=== PATIENT | male | born 1975 | race Caucasian/White ===

== ENCOUNTER 2019-03-27 12:49 | Inpatient (IN) ==
[2019-03-27] MEDS ORDERED: HYDROmorphone INJ 0.5 MG/0.5 ML SYR IV STA ×2 (13:36→15:39)
[2019-03-27] MEDS ORDERED: ONDANSETRON INJ 2 MG/ML 2 ML VIAL IV STA (13:36)
[2019-03-27] MEDS ORDERED: SODIUM CHLORIDE 0.9% 1000ML 1,000 ML IV ONE (13:36)
[2019-03-27 13:48] LABS: Basophils # (auto) 0.03 K/uL (0-0.2); Basophils % (auto) 0.3 %; Eosinophils # (auto) 0.32 K/uL (0-0.5); Eosinophils % (auto) 3.3 %; Hematocrit (blood only) 41.9 % (42-52); Hemoglobin 14.4 g/dL (14.0-18.0); Immature Granulocytes # (auto) 0.02 K/uL (0.00-0.02); Immature Granulocytes % (auto) 0.2 %; Lymphocytes # (auto) 2.03 K/uL (1.2-3.4); Lymphocytes % (auto) 20.9 %; Mean Corpuscular Hemoglobin 29.8 pg (25-34); Mean Corpuscular Hgb Conc 34.4 g/dL (32-36); Mean Corpuscular Volume 86.6 fL (80-100); Mean Platelet Volume 11.2 fL (7.4-10.4); Monocytes # (auto) 0.64 K/uL (0.11-0.59); Monocytes % (auto) 6.6 %; Neutrophils # (auto) 6.65 K/uL (1.4-6.5); Neutrophils % (auto) 68.7 %; Platelet Count 256 K/uL (130-400); RDW Coefficient of Variation 13.7 % (11.5-14.5); RDW Standard Deviation 43.7 fL (36.4-46.3); Red Blood Count 4.84 M/uL (4.7-6.1); White Blood Count 9.69 K/uL (4.8-10.8)
--- NOTE | 2019-03-27 13:59 | XRay Report ---
XR chest 1V portable CLINICAL HISTORY: 43 years-old Male presenting with razor blades swallowed. TECHNIQUE: Portable upright AP view of the chest was obtained. COMPARISON: None. FINDINGS: Cardiomediastinal silhouette normal. No focal opacity. No large effusion or pneumothorax. Osseous str uctures normal. Upper abdomen normal. IMPRESSION: 1. No acute cardiopulmonary disease. No radiopaque foreign body. ACT 112: Negative or not required by law. Electronically signed by: Keegan Martinez M.D. 03/27/2019 1:58 PM
--- NOTE | 2019-03-27 14:02 | XRay Report ---
XR KUB/Abdomen 1 view CLINICAL HISTORY: 43 years-old Male presenting with swallowed 5 razor blades. TECHNIQUE: Single supine view of the abdomen was obtained. COMPARISON: None. FINDINGS: Nonobstructive bowel gas pattern. No gross pneumoperitoneum. At least 3 linear radiopaque foreign bod ies are evident in the epigastrium likely within the gastric body/antrum. A suture margin may be pres ent in the region of the gastric body/fundus.. Allowing for bowel gas and stool, no calcifications to suggest nephrolithiasis. Osseous structures normal. Lung bases clear. IMPRESSION: 1. Linear radiopaque foreign bodies in the gastric lumen compatible with the reported ingested forei gn bodies. 2. No gross evidence of perforation. The report will be called/faxed according to standard departmental protocol. ACT 112: Negative or not required by law. Electronically signed by: Keegan Martinez M.D. 03/27/2019 2:01 PM
[2019-03-27 14:09] LABS: Albumin Level 3.5 gm/dl (3.4-5.0); BUN Creatinine Ratio 6.7 (10-20); Calcium 8.6 mg/dl (8.5-10.1); Creatinine Clr Calc Pharmacy 114.5 ml/min; Est GFR (African American) 114.6; Est GFR (Non-African American) 98.9; Potassium 3.3 mmol/L (3.5-5.1)
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
[2019-03-27 14:20] LABS: Albumin Globulin Ratio 0.8 (0.9-2); Bilirubin,Total 0.3 mg/dl (0.2-1); Globulin 4.3 gm/dl (2.5-4.0); Thyroid Stimulating Hormone 1.36 uIu/ml (0.300-4.500); Total Protein 7.8 gm/dl (6.4-8.2)
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
[2019-03-27 15:00] LABS: Acetaminophen < 2 ug/ml (10-30); Salicylate 4.1 mg/dl (2.8-20)
[2019-03-27] MEDS ORDERED: SODIUM CHLORIDE 0.9% 1000ML 500 ML IV ONE (15:06)
[2019-03-27 15:11] LABS: Appearance Urine Clear (Clear); Bacteria Urine Automated Negative (Negative); Bilirubin Urine Negative (Negative); Blood Urine Negative (Negative); Color Urine Dark Yellow; Glucose Urine UA Negative (Negative); Ketones Urine Negative (Negative); Leukocyte Esterase Urine Trace (Negative); Nitrite Urine Negative (Negative); Protein Urine Negative (Negative); RBC Urine Automated 0-4 /hpf (0-4); Specific Gravity Urine 1.021 (1.000-1.030); Urobilinogen Urine Negative (Negative); pH Urine 5.5 (4.5-7.5)
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
[2019-03-27] MEDS ORDERED: IOVERSOL 100ml IV PRN (15:25)
[2019-03-27 15:32] LABS: Amphetamines+Metham, Urine Neg (Neg); Barbiturates, Urine Neg (Neg); Benzodiazepine, Urine Pos (Neg); Cocaine, Urine Neg (Neg); MDMA (Ecstacy), Urine Pos (Neg); Methadone, Urine Neg (Neg); Opiate, Urine Pos (Neg); Phencyclidine, Urine Neg (Neg)
[2019-03-27] MEDS: PANTOprazole 40 MG in SYRINGE 0 ML IV SCH ×2 (15:41→22:13)
--- NOTE | 2019-03-27 15:46 | CT Scan Report ---
CT abd pelvis IV con only CLINICAL HISTORY: 43 years-old Male presenting with epigastric abdominal pain, reported razor blade i ngestion. TECHNIQUE: Multidetector CT of the abdomen and pelvis was performed after the administration of intra venous contrast. IV contrast: 90 mL of Optiray 320. One or more dose lowering techniques were used co nsistent with the principles of ALARA (as low as reasonably achievable), including automatic exposure control, mA or kV adjustment to individual patient size, and/or use of iterative reconstruction. COMPARISON: Plain radiograph from earlier today. CT DOSE (mGy.cm): The estimated cumulative dose is 565.29 mGy.cm. FINDINGS: [employer] topogram: Unremarkable. Lung bases: Normal heart size. No pericardial or pleural effusion. Minimal dependent changes likely a telectasis. Liver: Normal morphology. No liver lesion. Patent hepatic vasculature. Hepatic veins not yet opacifie d likely due to the phase of contrast. Biliary: Mild biliary ductal prominence likely a reservoir effect in the post cholecystectomy state. Gallbladder surgically absent. Pancreas: Normal. Spleen: Normal. Adrenal glands: Normal. Kidneys and ureters: Normal. No hydronephrosis. Bladder: Incompletely evaluated secondary to underdistention. Pelvic organs: Normal. Bowel: A few linear hyperdensities compatible with metal in the gastric lumen one at the fundus and s everal in the gastric antrum. These are linear and morphology and compatible with the reported razor blades. No perigastric inflammatory change or extraluminal gas to suggest perforation. Postsurgical c hanges of the gastric body are also evident. Punctate hyperdensities in the duodenum are not similarl y configured and appears slightly less radiodense. No bowel obstruction. Postsurgical changes of appe ndectomy. Peritoneal cavity: No free fluid or intraperitoneal gas. Lymph nodes: No enlarged lymph nodes in the abdomen or pelvis. Vasculature: Aorta and IVC patent and normal in caliber. Abdominal wall: Postsurgical changes of the ventral midline abdominal wall. Musculoskeletal: Normal. IMPRESSION: 1. Multiple linear metallic foreign bodies in the gastric lumen compatible with the reported razor b lade ingestion. No evidence of gastric perforation. 2. Hyperdensities in the duodenum do not have the same configuration and are not as radiodense, hartley isis, smaller components of ingested foreign bodies difficult to exclude. 3. Postsurgical changes of the gastric body. 4. Status post appendectomy and cholecystectomy. ACT 112: Negative or not required by law. Electronically signed by: Keegan Martinez M.D. 03/27/2019 3:45 PM
--- NOTE | 2019-03-27 16:01 | Electrocardiogram Report ---
Test Reason : Blood Pressure : / mmHG Vent. Rate : 051 BPM Atrial Rate : 051 BPM P-R Int : 152 ms QRS Dur : 108 ms QT Int : 446 ms P-R-T Axes : 049 030 053 degrees QTc Int : 411 ms Sinus bradycardia Incomplete right bundle branch block Borderline ECG No previous ECGs available Confirmed by Manuel Clancy ([id number]) on 03/27/2019 4:01:20 PM Referred By: REFERRED SELF Confirmed By:Manuel Clancy
[2019-03-27] MEDS ORDERED: fentaNYL citrate 100 MCG/2 ML VIAL ONE ×2 (16:42→17:18)
[2019-03-27] MEDS ORDERED: SUCCINYLCHOLINE CHLORIDE 20 MG/ML 10 ML VIAL ONE (16:42)
[2019-03-27] MEDS ORDERED: PROPOFOL IV EMULSION 10 MG/ML 20 ML VIAL IV ONE ×2 (16:42→18:14)
[2019-03-27] MEDS ORDERED: MIDAZOLAM HCL 1 MG/ML 2ML VIAL ONE (16:42)
[2019-03-27] MEDS ORDERED: LIDOCAINE HCL 2% 2 ML VIAL/AMP(20MG/ML) INFIL ONE (16:43)
[2019-03-27 16:46] LABS: Influenza A virus by PCR Neg for Influ A (Neg); Influenza B virus by PCR Neg for Influ B (Neg)
--- NOTE | 2019-03-27 16:57 | Anesthesiology Consultation ---
Date of Service March 27, 2019 Assessment & Plan Chart Review Chart Review: Acceptable Risk for Surgery and Patient NOT seen in Pre Admission Testing Consults Requested none ASA [id number] Proposed Anesthesia Anesthesia Type: General Risk / Benefits Reviewed With: PT / POA / Parent / Guardian, Accepts Plan and Informed Consent Obtained History Surgery Operation Date: 03/27/19 16:00 Proposed Procedures p EGD Foreign Body Removal - Sarwat G. Case, DO Height/Weight Height: 6 ft 1 in Weight: 92.4 kg Allergies Allergy/AdvReac Type Severity Reaction Status Date / Time meperidine [From Demerol] Allergy Rash Verified 03/27/19 16:52 morphine Allergy Rash Verified 03/27/19 16:51 Medications Home Medications Medication Instructions Recorded Confirmed Last Taken clonazepam 1 mg PO TID 03/27/19 03/27/19 Unknown clonidine HCl 0.1 mg PO HS 03/27/19 03/27/19 Unknown escitalopram oxalate 20 mg PO DAILY 03/27/19 03/27/19 Unknown perphenazine 12 mg PO DAILY 03/27/19 03/27/19 Unknown Active Medications Generic Name Dose Route Start Last Admin Trade Name Freq PRN Reason Stop Dose Admin Pantoprazole Sodium 40 mg/ 10 mls @ 5 mls/min 03/27/19 15:00 03/27/19 15:41 Syringe IV 04/26/19 14:59 5 mls/min BID@0900,2100 BRYAN Administration Ioversol 90 ml 03/27/19 15:25 03/27/19 15:26 Optiray 320 100ml IV 03/31/19 15:24 90 ml ONCE PRN Administration Interaction Checking NPO Date Last Intake of Fluids: 03/27/19 Time Last Intake of Fluids: 11:30 Date Last Intake of Solids: 03/26/19 Time Last Intake of Solids: 18:00 Past Medical History Medical History Depression Depression H/O foreign body ingestion Exercise / Class Metabolic Activity II 4-5 Yardwork/Stairs/Walk up hill Negative for chest pain or shortness of breath. Past Family History Family History Other Family history non-contributory Past Surgical History Surgical History History of endoscopy S/P hernia surgery Past Anesthesia History No Hx of Anesthesia Complications History of PONV No Hx of PONV and No Hx of Motion Sickness Social History Smoking Status: Current every day smoker tobacco type: cigarettes Smoking cigarettes per day: 10 Hx Alcohol Use: No Hx Substance Use: Yes substance use type: marijuana Review of Systems Patient denies active symptoms of GERD. Positive for nausea Physical Exam Vital Signs Last Vital Signs Temp 36.7 C 03/27/19 13:11 Pulse 59 L 03/27/19 16:11 Resp 23 03/27/19 16:11 BP 128/81 03/27/19 16:11 Pulse Ox 95 03/27/19 16:11 Constitutional not obese ENMT Mouth: no TMJ abnormality and oral opening not small Thyromental Distance: > or= 3.5 Finger Breadths Mallampati Class: II Mouth / Teeth: 1. Missing Neck normal visual inspection; neck extension not limited Respiratory normal respiratory effort Auscultation: lungs clear to auscultation bilaterally Cardiovascular Rate/Rhythm: regular rate and regular rhythm Heart Sounds: no murmur Neurologic moves all extremities Psychiatric Orientation: alert and oriented x 3 Testing Laboratory Results 03/27/19 13:24 03/27/19 13:24 Urine Color Dark Yellow 03/27/19 15:00 Urine Appearance Clear (Clear) 03/27/19 15:00 Urine pH 5.5 (4.5-7.5) 03/27/19 15:00 Ur Specific [place] 1.021 (1.000-1.030) 03/27/19 15:00 Urine Protein Negative (Negative) 03/27/19 15:00 Urine Glucose (UA) Negative (Negative) 03/27/19 15:00 Urine Ketones Negative (Negative) 03/27/19 15:00 Urine Nitrite Negative (Negative) 03/27/19 15:00 Ur Leukocyte Esterase Trace (Negative) H 03/27/19 15:00 Urine WBC (Auto) 1-5 /hpf (0-5) 03/27/19 15:00 Urine RBC (Auto) 0-4 /hpf (0-4) 03/27/19 15:00 U Hyaline Cast (Auto) 1-5 /lpf (0-5) 03/27/19 15:00 U Epithel Cells (Auto) 5-10 /lpf (0-5) H 03/27/19 15:00 Urine Bacteria (Auto) Negative (Negative) 03/27/19 15:00 Blood Type O Positive 03/27/19 13:30 Antibody Screen NEGATIVE 03/27/19 13:30
--- NOTE | 2019-03-27 17:49 | GI REPORT ---
Patient Name: Rylan Romero Procedure Date: 03/27/2019 3:49 PM Date of : 1975 Admit Type: Emergency Department Age: 43 Gender: Male Attending MD: Sarwat Cooper DO Procedure: Upper GI endoscopy Providers: Sarwat Cooper DO Referring MD: Carlton Ochoa Md Indications: Foreign body in the stomach Medicines: General Anesthesia, Monitored Anesthesia Care Complications: No immediate complications. Estimated Blood Loss: Estimated blood loss: none. Procedure: Pre-Anesthesia Assessment: - Prior to the procedure, a History and Physical was performed, and patient medications and allergies were reviewed. The patient's tolerance of previous anesthesia was also reviewed. The risks and benefits of the procedure and the sedation options and risks were discussed with the patient. All questions were answered, and informed consent was obtained. Prior Anticoagulants: The patient has taken no previous anticoagulant or antiplatelet agents. ASA Grade Assessment: E - Emergency. After reviewing the risks and benefits, the patient was deemed in satisfactory condition to undergo the procedure. After obtaining informed consent, the endoscope was passed under direct vision. Throughout the procedure, the patient's blood pressure, pulse, and oxygen saturations were monitored continuously. The Endoscope was introduced through the mouth, and advanced to the second part of duodenum. The upper GI endoscopy was accomplished without difficulty. The patient tolerated the procedure well. Findings: The esophagus was normal. Razor blades were found on the greater curvature of the stomach. Removal was accomplished with an overtube, rat-toothed forceps and Gray net. Localized moderate inflammation characterized by congestion (edema) and erythema was found in the gastric antrum. Biopsies were taken with a cold forceps for histology. The examined duodenum was normal. Impression: - Normal esophagus. - Razor blades were found in the stomach. Removal was successful. - Gastritis. Biopsied. - Normal examined duodenum. Recommendation: - Resume previous diet. - Use Protonix (pantoprazole) 40 mg PO BID. - Await pathology results. - Return patient to [facility] for ongoing care. Sarwat Cooper DO 03/27/2019 5:48:42 PM This report has been signed electronically. Note Initiated On: 03/27/2019 3:49 PM Number of Addenda: 0 I attest to the content of the Intraoperative Record and orders documented therein, exceptions below {[id number]}
[2019-03-27] MEDS ORDERED: ONDANSETRON INJ 2 MG/ML 2 ML VIAL IV PRN (18:09)
[2019-03-27] MEDS ORDERED: ATROPINE SULFATE 0.1 MG/ML 10ML SYR IV PRN (18:09)
[2019-03-27] MEDS ORDERED: fentaNYL citrate 100 MCG/2 ML VIAL IV PRN (18:09)
[2019-03-27] MEDS ORDERED: ePHEDrine sulfate 50 MG/ML AMP IV PRN (18:09)
[2019-03-27] MEDS ORDERED: ONDANSETRON INJ 2 MG/ML 2 ML VIAL ONE (18:14)
--- NOTE | 2019-03-27 18:35 | Anesthesiology Progress Note ---
Date of Service March 27, 2019 Anesthesia Post Procedure Vital Signs Vital Signs: Temp Pulse Pulse Resp BP BP Pulse Ox 03/27/19 18:27 37.0 C 63 19 99/56 L 94 03/27/19 18:20 65 19 95/57 L 93 03/27/19 18:10 69 19 86/52 L 94 03/27/19 18:00 37.3 C 86 24 93/54 L 94 03/27/19 16:11 59 L 23 128/81 95 03/27/19 16:01 59 L 23 128/81 95 03/27/19 15:36 122/64 95 03/27/19 15:01 49 L 19 101/57 L 03/27/19 14:31 51 L 16 03/27/19 14:30 53 L 15 80/68 L 03/27/19 14:25 53 L 14 89/57 L 03/27/19 14:15 57 L 17 86/53 L 03/27/19 14:00 60 20 03/27/19 13:30 56 L 25 H 03/27/19 13:23 63 18 03/27/19 13:19 58 L 23 103/67 03/27/19 13:11 36.7 C 69 18 95/60 L 97 Transfer of Care Handoff Completed per policy Notes Mental Status: alert / awake / arousable and participated in evaluation Patient Amnestic to Procedure: Yes Nausea / Vomiting: adequately controlled Pain: adequately controlled Airway Patency, RR, SpO2: stable & adequate BP & HR: stable & adequate Hydration State: stable & adequate Anesthetic Complications: no major complications apparent and Pt Satisfied with anesthetic care
[2019-03-27] MEDS: SODIUM CHLORIDE 0.9% 1000ML 1,000 ML IV SCH (20:31)
[2019-03-28] MEDS: SODIUM CHLORIDE 0.9% 1000ML 1,000 ML IV SCH (04:16)
[2019-03-28] MEDS ORDERED: HYDROmorphone INJ 0.5 MG/0.5 ML SYR IV STA (06:19)
[2019-03-28 06:38] LABS: Basophils # (auto) 0.01 K/uL (0-0.2); Basophils % (auto) 0.1 %; Eosinophils # (auto) 0.21 K/uL (0-0.5); Eosinophils % (auto) 2.2 %; Hematocrit (blood only) 37.5 % (42-52); Hemoglobin 12.6 g/dL (14.0-18.0); Immature Granulocytes # (auto) 0.03 K/uL (0.00-0.02); Immature Granulocytes % (auto) 0.3 %; Lymphocytes # (auto) 1.72 K/uL (1.2-3.4); Lymphocytes % (auto) 18.4 %; Mean Corpuscular Hgb Conc 33.6 g/dL (32-36); Mean Corpuscular Volume 86.4 fL (80-100); Mean Platelet Volume 11.1 fL (7.4-10.4); Monocytes % (auto) 6.4 %; Neutrophils # (auto) 6.79 K/uL (1.4-6.5); Neutrophils % (auto) 72.6 %; Platelet Count 218 K/uL (130-400); RDW Coefficient of Variation 13.6 % (11.5-14.5); RDW Standard Deviation 43.6 fL (36.4-46.3); Red Blood Count 4.34 M/uL (4.7-6.1); White Blood Count 9.36 K/uL (4.8-10.8)
[2019-03-28 07:13] LABS: BUN Creatinine Ratio 6.6 (10-20); Calcium 8.1 mg/dl (8.5-10.1); Creatinine Clr Calc Pharmacy 134.6 ml/min; Est GFR (African American) 126.8; Est GFR (Non-African American) 109.4; Potassium 3.6 mmol/L (3.5-5.1)
--- NOTE | 2019-03-28 09:31 | XRay Report ---
[facility]UB CLINICAL HISTORY: Foreign body COMPARISON STUDY: CT of the abdomen and pelvis and [facility] March 27, 2019. FINDINGS: 3 foreign bodies measuring 9 mm project over the left upper quadrant. These reflect ingeste d foreign bodies within the stomach. The foreign bodies on CT and KUB of March 27, 2019 have been r emoved. Sensitivity for detection of free air is diminished on this supine exam but there is no evide nce for free air. No additional radiopaque foreign bodies are identified on this study. Gastric stapl e line is noted. IMPRESSION: Three ingested foreign bodies measuring 9 mm within the body of the stomach. ACT 112: Negative or not required by law. Electronically signed by: Trever Christianson M.D. 03/28/2019 9:30 AM
--- NOTE | 2019-03-28 09:45 | Hospitalist Progress Note ---
Date of Service March 28, 2019 Assessment & Plan (1) Ingestion of foreign body: This is a 43-year-old male with PMH of depression who presents after ingesting reported 5 razor blades around noon on 03/27/2019 as a suicide attempt. -Patient had razor blades removed by upper endoscopy on 03/27/2019. Patient on 1 to 1 observation. A follow up [facility] was ordered on 03/28/2019. Prior to going to [facility], patient swallowed EKG leads - patient reported he swallowed 4 but 1 to 1 nursing staff reported that that were 2 leads missing. Charge nurse was asked to notify gastroenterology service. Hospital doctor assessed patient. He is not in distress. He reports abdomen discomfort. He reports that this occurred after he swallowed the EKG leads. When initially asked why he did this, patient reports he just felt like it. When asked further about suicidal ideations, patient reports that he wanted to hurt himself and he just does not care anymore. Charge nurse informs hospitalist that gastroenterology does not advise of repeat upper endoscopy at this time and that to follow EKG leads with [facility] imaging until they pass and if they do not pass then surgical consult would be advised - Three ingested foreign bodies measuring 9 mm within the body of the stomach in 03/28/2019. General surgery consult notified. patient remains NPO with IV fluids running (2) Suicide attempt: Has history of ingesting foreign bodies in the past when upset as suicide attempt, most recently a few years ago -Multiple inpatient psych admissions in the past with 2 in [place] and 1 at the [facility] in [place] -Follows with Dr. Samaniego of psychiatry in [place] and reports taking all medications as prescribed -hospitalist requests that patient be evaluated by inpatient psychiatry service for suicidal ideations and suicidal attempts. will likely need 302 to keep pat ient in hospital to complete medical and psychiatric work up (3) Depression: -oral medications are held as medical service trying to ensure that patient can pass foreign objects DVT Ppx: SCDs Code status: FULL PCP: No PCP Subjective Patient had razor blades removed by upper endoscopy on 03/27/2019. Patient on 1 to 1 observation. A follow up KUB was ordered on 03/28/2019. Prior to going to KUB, patient swallowed EKG leads - patient reported he swallowed 4 but 1 to 1 nursing staff reported that that were 2 leads missing. Charge nurse was asked to notify gastroenterology service. Hospital doctor assessed patient. He is not in distress. He reports abdomen discomfort. He reports that this occurred after he swallowed the EKG leads. When initially asked why he did this, patient reports he just felt like it. When asked further about suicidal ideations, patient reports that he wanted to hurt himself and he just does not care anymore. Charge nurse informs hospitalist that gastroenterology does not advise of repeat upper endoscopy at this time and that to follow EKG leads with [facility] imaging until they pass and if they do not pass then surgical consult would be advised Review of Systems Review of Systems: All systems reviewed & are unremarkable except as noted in HPI & below Physical Exam Constitutional: WD/WN, vitals as above Eyes: PERRL, conjunctivae normal, anicteric sclerae EOM intact bilaterally ENMT: external ear and nose normal, oropharynx normal Neck: trachea midline, no thyromegaly normal visual inspection Respiratory: normal respiratory effort, lungs clear to auscultation Cardiovascular: Rate/Rhythm: regular rate and regular rhythm Gastrointestinal (Abdomen): Inspection/Auscultation: abdomen normal to inspection Percussion/Palpation: abdomen soft nontender Musculoskeletal: Head/Neck/Chest: normocephalic and head atraumatic Neurologic: PERRL, EOMI, accommodation nl, no face palsy, no dysarthria Psychiatric: Orientation: alert and oriented x 3 Results & Data (MN) Vital Signs (Past 12 Hours) Vital Signs Temp Pulse Pulse Resp BP Pulse Ox 03/28/19 07:09 67 03/28/19 07:01 36.8 C 65 18 144/79 H 92 03/28/19 03:19 36.8 C 75 18 129/71 94 03/28/19 00:00 64 03/27/19 23:53 37.0 C 70 18 116/71 94 (1) Ingestion of foreign body Encounter type: initial encounter Qualified Code(s): T18.9XXA - Foreign body of alimentary tract, part unspecified, initial encounter
[2019-03-28] MEDS: PANTOprazole 40 MG TAB PO SCH ×2 (09:46→20:36)
[2019-03-28] MEDS ORDERED: ACETAMINOPHEN 1,000 MG/100 ML VIAL IV PRN (09:58)
[2019-03-28] MEDS ORDERED: DiphenhydrAMINE HCL 50 MG/ML VIAL IV PRN (09:59)
[2019-03-28] MEDS: HYDROmorphone INJ 0.5 MG/0.5 ML SYR IV PRN ×4 (10:10→21:13)
[2019-03-28] MEDS ORDERED: D5W AND 1/2NSS 1,000 ML IV SCH (10:15)
[2019-03-28] MEDS ORDERED: clonazePAM 1 MG TAB PO STA ×2 (10:18→10:59)
--- NOTE | 2019-03-28 10:25 | Psychiatric Consultation ---
Date of Consultation March 28, 2019 Impression / Recommendations Impression 43-year-old gentleman with history of repeated foreign body ingestions beginning around 2009 requiring lengthy psychiatric hospitalization at [facility] where he continued to ingest foreign objects requiring multiple EGDs and was placed on a one-to-one. It sounds that he did experience a period of improved stability but has required interim psychiatric admissions at the local hospital. Psychosocial circumstances likely triggering with recent argument with girlfriend precipitating razor blade ingestions leading to this hospitalization. Per available information, patient typically discloses and is help seeking when he ingests foreign objects. Presently he has endorsed intent for self-harm associated with these ingestions to multiple caregivers since time of admission and is unable to reasonably participate in a clinical interview today. As he is demanding to leave AMA following another ingestion of EKG leads, he was informed that we would pursue a 302 commitment and this was completed by the [facility] delegate. Presently he represents an imminent danger to himself if discharged. His psychiatric pathology is interesting and not terribly common. Repeated foreign body ingestions are usually not a chosen modality of suicide attempt but more often a form of either nonsuicidal self injury or pathological behavior seeking some sort of control, and typically associated with underlying personality disorder. So far I do not appreciate a delusional component to his foreign body ingestions. Unclear if this is directly gratifying to him. He is presently n.p.o. including medications pending surgical consult. He is at risk for withdrawing from the clonazepam 1 mg 3 times daily which he has been taking at home and appears to be filling at monthly intervals per pdmp. His home dose of Lexapro and perphenazine should be started again as soon as he is cleared for oral medications. -Diagnostically I suspect underlying 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 (unspecified impulse control disorder) -Patient represents a danger to himself presently if discharged and I fully support 302 commitment which has been completed by critical access hospital delegate. I expect he will require psychiatric hospitalization following medical clearance -Maintain one-to-one observation. Particularly while confined, he is likely at increased risk for further ingestions -He is at risk for benzodiazepine withdrawal and perhaps showing mild signs with elevated blood pressure and some muscle fasciculations today. Stat order for Ativan 2 mg IV provided. Approximate equivalent dose of Ativan to compensate for home dose of clonazepam would be about 2 mg 3 times daily. I discussed with nursing that his home dose Klonopin, Lexapro, and perphenazine should be started as soon as he is cleared to take p.o. If he has not cleared for oral medications by this evening, he should be started on 3 times daily IV Ativan to avoid benzodiazepine withdrawal. -We will continue to expand database. As above, patient was not unwilling historian today. (1) Suicide attempt: (2) Impulse control disorder, unspecified: (3) Personality disorder, unspecified: (4) Depression: (5) Ingestion of foreign body: Encounter type: initial encounter Qualified Code(s): T18.9XXA - Foreign body of alimentary tract, part unspecified, initial encounter Risk Factors Assessment Male: Yes : Yes Health Problems: Yes Mental Health Diagnoses: Yes Substance Use Disorders: Yes Previous Attempt: Yes Previous Psychiatric Hospitalization: Yes Protective Factors Assessment : No Employed: No Stable Relationships: No CPT Code 54803 Psych History Chief Complaint " I do not want to talk to you. You cannot help me. You guys are not doing anything for me". History of Present Illness This patient is previously unknown to the behavioral health services in this hospital. It appears he is an outpatient of Dr. Samaniego in [place] and does have a history of multiple prior psychiatric hospitalizations at [place], [place], and [place], with last psychiatric hospitalization approximately 1 year ago. He presented through the ER on 03/27/2019 reporting abdominal pain and had swallowed 5 razor blades 1-1/2 hours prior, broken off from a shaving razor. Indicated that he had tried to hurt himself in the past by swallowing different things including tacks and screws. Reportedly last similar episode was over a year ago. He noted depressive thoughts with mood decompensation associated with argument with fianc "pushing him over the edge." He reported taking medication for depression and it appears he takes Klonopin 1 mg 3 times daily, Lexapro 20 mg daily, and perphenazine 12 mg daily at home. He has subsequently had the razor blades removed via upper endoscopy however he then ingested multiple EKG leads and a surgical consult is pending. When asked why he swallowed the EKG leads, primary team indicates response was that he "just felt like it." He indicated that he wanted to hurt himself and "just does not care anymore." He is on a one-to-one He was willing to speak with the psych james nurse earlier today at which time the following information was obtained: Patient stated "I am impulsive, not sure I want to hurt myself or not." He reported last foreign object ingestion had been 2 years ago. Identified fight with girlfriend at noon on 03/27/2019 as trigger. Complained of inability to fall asleep or stay asleep, poor appetite, low energy, poor concentration, increased anxiety. Reported that he had previously been on Wellbutrin but has not taken for months. Complained of lack of supports. Unfortunately he is highly resistant to psychiatric interview with MD this morning. He initially expresses feeling angry that the hospital will not give him his psychotropic medications but when offered to assist with this he is help refusing. He appears a little anxious, certainly irritable, mild fasciculations noted in facial musculature. He refuses to speak about his foreign body ingestion, purpose of ingestion, feeling state, or psychosocial stressors. He states that the hospital is not doing anything for him and he wants to go home at which point he stops directly interacting with t his provider and uses his cell phone to call an unknown person and demand a ride. He was advised that his medical condition is not conducive to his safety should he leave and, as he has continued to demonstrate impulsive ingestions here in the hospital, that we would need to pursue an emergency involuntary commitment for further evaluation if he attempted to leave. He responded "One way or another I am getting out of here." Past Psychiatric History Previous Psych History: Patient sounds to have a long psychiatric history. History previously obtained from patient's sister, Tala, by liaison nurse indicates that she has been his primary support. He has a history of "acting out", depression, anxiety since childhood. Began swallowing foreign objects in response to stress in 2009. Reportedly fairly stable after discharge from [facility] and compliant with medications apart from a few short stays at [facility]. Diagnosis of MDD. No history of physical aggression. Current Psychiatric Diagnosis: Depression Outpatient Services: Dr. Samaniego at [facility] in [facility]. In process of therapy intake at [facility]. Previous Psych Admissions: Hospitalized in [place], then several admissions to [facility], first in 2012. [facility] in 2013 from [facility] for perhaps 2 to 3 years. Reportedly would "swallow anything he got his hands on" in the [facility]. Ultimately placed on a one-to-one. Multiple EGDs at the [facility]. "Physicians reported it was becoming life- threatening." Allergies Allergy/AdvReac Type Severity Reaction Status Date / Time meperidine [From Demerol] Allergy Rash Verified 03/27/19 16:52 morphine Allergy Rash Verified 03/27/19 16:51 Home Medications Home Medications Medication Instructions Recorded Confirmed Type clonazepam 1 mg PO TID 03/27/19 03/27/19 History clonidine HCl 0.1 mg PO HS 03/27/19 03/27/19 History escitalopram oxalate 20 mg PO DAILY 03/27/19 03/27/19 History perphenazine 12 mg PO DAILY 03/27/19 03/27/19 History Family History Patient unwilling to provide Substance Abuse History Unclear substance abuse history. Patient unwilling to provide today. UDS positive for opiates, MDMA, benzodiazepines, marijuana Personal History Living Arrangements: Apartment (in [facility]. Mother lives in same building and mother is also reportedly not emotionally stable) Employment Status: Disabled Beliefs That Will Affect Care: None Psychological Trauma History Comment: Unknown Patient History Medical History Depression Depression H/O foreign body ingestion Surgical History History of endoscopy S/P hernia surgery Family History Other Family history non-contributory Social History Preferred Language: Kazakh Communication Ability: Effective Web Development Director Required: No Beliefs That Will Affect Care: None Current Living Situation: Significant Other current occupational status: disabled Other Information That Helps Us Care for You: No Feels Safe at Home: No Is there a partner from a previous relationship who is making you feel unsafe now?: No Any Concerns about Your Family Situation: No Would You Like to Speak to Someone About Your Situation: No Safety Concerns: Afraid for Self Smoking Status: Current every day smoker Tobacco Type: cigarettes ; Cigarettes Per Day: 10 ; Hx Alcohol Use: No Hx Substance Use: Yes substance use type: marijuana Physical Exam Psychiatric: Orientation: alert; + uncooperative Apperance: + disheveled and appeared stated age Eye Contact: + poor eye contact Motor Behavior: + tremor (Muscle fasciculations and mild tremor evident. He repositions his legs several times in bed) Speech: + loud speech Affect: + angry affect Patient refused to characterize mood Thought Process: + perseveration and + concrete thought process Thought Content: + preoccupation (Wants to leave hospital) and + cognitive distortions (Seems to feel that people are not interested in helping him) Patient refuses to discuss suicidal intentions. As previously indicated intent for self-harm associated with foreign body ingestions precipitating this admission No evidence of response to internal stimuli Insight: + poor insight Judgement: + poor judgement Vital Signs (Past 24 Hours): Last Vital Signs Temp 36.8 C 03/28/19 07:01 Pulse 67 03/28/19 07:09 Resp 18 03/28/19 07:01 BP 144/79 H 03/28/19 07:01 Pulse Ox 92 03/28/19 07:01 Review of Systems Patient non-participatory in review of systems Results & Data (PSY) Medications Administered Hydromorphone HCl (Dilaudid) 0.5 mg IV Q6H PRN PRN Reason: moderate to severe pain Stop: 04/11/19 09:57 Last Admin: 03/28/19 10:10 Dose: 0.5 mg Documented by: [id number] Ioversol (Optiray 320 100ml) 90 ml IV ONCE PRN PRN Reason: Interaction Checking Stop: 03/31/19 15:24 Last Admin: 03/27/19 15:26 Dose: 90 ml Documented by: [id number] Pantoprazole Sodium (Protonix) 40 mg PO BID BRYAN Stop: 04/27/19 08:59 Last Admin: 03/28/19 09:46 Dose: Not Given Documented by: [id number] Coding Level of Care Code 48166 [facility] Intl Hosp Care Lvl 2 Diagnoses Suicide attempt T14.91XA Impulse control disorder, unspecified F63.9 Personality disorder, unspecified F60.9 Depression F32.9 Ingestion of foreign body T18.9XXA Encounter type: initial encounter Time Spent (min) 60
[2019-03-28] MEDS ORDERED: LORazepam 2 MG/4 ML VIAL IV STA (10:33)
[2019-03-28] MEDS ORDERED: LORazepam 1 MG/2 ML VIAL IV STA (11:01)
[2019-03-28] MEDS ORDERED: clonazePAM 1 MG TAB PO ONE (11:02)
[2019-03-28] MEDS ORDERED: HALOPERIDOL LACTATE 5 MG/ML 1 ML VIAL IM STA (11:10)
[2019-03-28] MEDS: HALOPERIDOL LACTATE 5 MG/ML 1 ML VIAL IV STA ×2 (12:23→12:37)
[2019-03-28] MEDS ORDERED: LORazepam 2 MG/ML VIAL (IM USE) IM STA (12:28)
[2019-03-28] MEDS ORDERED: HALOPERIDOL LACTATE 5 MG/ML 1 ML VIAL IM PRN (12:44)
[2019-03-28] MEDS ORDERED: BENZTROPINE MESYLATE 1 MG/ML 2 ML AMP IM STA (12:48)
--- NOTE | 2019-03-28 13:09 | Gastroenterology Progress Note ---
Date of Service March 28, 2019 Assessment & Plan (1) Ingestion of foreign body: Recommend repeat KUB in 3 days to evaluate passage of EKG leads One to one sitter recommended Recommend finger foods only, with no silverware as utensils can be ingested Ensure patient does not have access to objects that are caustic, including batteries Subjective I received a call from the patient's nursing station, that this AM the patient swallowed 3 disposable EGK stickers, as he has a history of repeated foreign body ingestion due to his mental health diagnoses. I reviewed the KUB with Dr. Christianson of Radiology, and based on size and makeup (no sharp edges or caustic substances) that the risk of further endoscopic therapy and sedation outweigh the current benefits of repeating an EGD. Results & Data Vital Signs (Past 12 Hours) Vital Signs Temp Pulse Pulse Resp BP Pulse Ox 03/28/19 07:09 67 03/28/19 07:01 36.8 C 65 18 144/79 H 92 03/28/19 03:19 36.8 C 75 18 129/71 94 PG Care Time/CCT Total # of Minutes Spent Total Time Spent with Patient: Total time spent is greater than 50% in coordination of care (as documented) at patient's floor/unit and/or counseling patient: Coding Level of Care Code None Diagnoses Ingestion of foreign body T18.9XXA Encounter type: initial encounter (1) Ingestion of foreign body Encounter type: initial encounter Qualified Code(s): T18.9XXA - Foreign body of alimentary tract, part unspecified, initial encounter
[2019-03-28] MEDS: OXYCODONE HCL IR 5 MG TAB (IMMEDIATE RELEASE) PO PRN (15:08)
[2019-03-28] MEDS ORDERED: POLYETHYLENE (MIRALAX) 17 GM PACK PO PRN (15:25)
--- NOTE | 2019-03-28 17:08 | Anesthesiology Progress Note ---
Date of Service March 28, 2019 Anesthesia Post Procedure Vital Signs Vital Signs: Temp Pulse Pulse Pulse Resp BP BP 03/28/19 15:13 36.9 C 68 20 119/63 03/28/19 07:09 67 03/28/19 07:01 36.8 C 65 18 144/79 H 03/28/19 03:19 36.8 C 75 18 129/71 03/28/19 00:00 64 03/27/19 23:53 37.0 C 70 18 116/71 03/27/19 20:40 03/27/19 19:45 36.7 C 59 L 18 108/68 03/27/19 19:18 59 L 03/27/19 19:15 36.6 C 59 L 18 112/61 03/27/19 19:00 36.5 C 61 18 99/60 L 03/27/19 18:37 37.0 C 64 19 90/53 L 03/27/19 18:30 37.0 C 63 19 99/56 L 03/27/19 18:20 65 19 95/57 L 03/27/19 18:10 69 19 86/52 L 03/27/19 18:00 37.3 C 86 24 93/54 L Pulse Ox 03/28/19 15:13 96 03/28/19 07:09 03/28/19 07:01 92 03/28/19 03:19 94 03/28/19 00:00 03/27/19 23:53 94 03/27/19 20:40 92 03/27/19 19:45 96 03/27/19 19:18 03/27/19 19:15 96 03/27/19 19:00 98 03/27/19 18:37 94 03/27/19 18:30 94 03/27/19 18:20 93 03/27/19 18:10 94 03/27/19 18:00 94 Pain Intensity Abdomen: Pain Intensity: 2 Transfer of Care Handoff Completed per policy Notes Mental Status: alert / awake / arousable and participated in evaluation Patient Amnestic to Procedure: Yes Nausea / Vomiting: adequately controlled Pain: adequately controlled Airway Patency, RR, SpO2: stable & adequate BP & HR: stable & adequate Hydration State: stable & adequate Anesthetic Complications: no major complications apparent and Pt Satisfied with anesthetic care
[2019-03-28] MEDS: PERPHENAZINE 2 MG TABLET PO SCH (17:18)
[2019-03-28] MEDS: ESCITALOPRAM OXALATE 20 MG TAB PO SCH (17:21)
[2019-03-28] MEDS: clonazePAM 1 MG TAB PO SCH (20:36)
[2019-03-28] MEDS: cloNIDine HCL 0.1 MG TAB PO SCH (20:36)
[2019-03-29] MEDS: HYDROmorphone INJ 0.5 MG/0.5 ML SYR IV PRN ×6 (01:22→21:57)
[2019-03-29] MEDS: OXYCODONE HCL IR 5 MG TAB (IMMEDIATE RELEASE) PO PRN ×4 (04:05→23:56)
[2019-03-29] MEDS: PERPHENAZINE 2 MG TABLET PO SCH (07:31)
[2019-03-29] MEDS: SENNA 8.6 MG TAB PO SCH (07:31)
[2019-03-29] MEDS: ESCITALOPRAM OXALATE 20 MG TAB PO SCH (07:31)
[2019-03-29] MEDS: PANTOprazole 40 MG TAB PO SCH ×2 (07:31→20:21)
[2019-03-29] MEDS: clonazePAM 1 MG TAB PO SCH ×3 (07:31→20:19)
--- NOTE | 2019-03-29 08:43 | XRay Report ---
XR KUB/Abdomen 1 view CLINICAL HISTORY: follow foreign bodies in GI tract COMPARISON STUDY: 03/28/2019 FINDINGS: 3 radiopaque foreign bodies are visualized within the mid abdomen. These are consistent wit h the clinical history of swallowing EKG sticker electrodes. These appear to be positioned within a s mall bowel loop. There is no current evidence of bowel obstruction. 2-D foreign bodies overlapping ea ch other and may be adherent. IMPRESSION: 1. No evidence of bowel obstruction 2. 3 radiopaque foreign bodies are visualized within the small bowel. ACT 112: Negative or not required by law. Electronically signed by: Hamlet Butterfield M.D. 03/29/2019 8:42 AM
--- NOTE | 2019-03-29 09:11 | Hospitalist Progress Note ---
Date of Service March 29, 2019 Assessment & Plan (1) Ingestion of foreign body: Ingestion of foreign body (multiple objects, and recurrent ingestions of foreign bodies) This is a 43-year-old male with PMH of depression who presents after ingesting reported 5 razor blades around noon on 03/27/2019 as a suicide attempt. -Patient had razor blades removed by upper endoscopy on 03/27/2019. Patient on 1 to 1 observation. A follow up KUB was ordered on 03/28/2019. Prior to going to KUB, patient swallowed EKG leads - patient reported he swallowed 4 but 1 to 1 nursing staff reported that that were 2 leads missing. Charge nurse was asked to notify gastroenterology service. Hospital doctor assessed patient. He is not in distress. He reports abdomen discomfort. He reports that this occurred after he swallowed the EKG leads. When initially asked why he did this, patient reports he just felt like it. When asked further about suicidal ideations, patient reports that he wanted to hurt himself and he just does not care anymore. Charge nurse informs hospitalist that gastroenterology does not advise of repeat upper endoscopy at this time and that to follow EKG leads with KUB imaging until they pass and if they do not pass then surgical consult would be advised - Three ingested foreign bodies measuring 9 mm within the body of the stomach in 03/28/2019. -03/29/2019 KUB: 3 radiopaque foreign bodies are visualized within the small bowel -continue liquid diet, give Miralax, pain medications prn, monitor for bowel movements and plan KUB on 03/30/2019 (2) Suicide attempt: Has history of ingesting foreign bodies in the past when upset as suicide attempt, most recently a few years ago -Multiple inpatient psych admissions in the past with 2 in [place] and 1 at the [facility] in [place] -Follows with Dr. Samaniego of psychiatry in [place] and reports taking all medications as prescribed -inpatient psychiatry service for suicidal ideations and suicidal attempts have placed patient on 302, Code [place]ffman on 03/28/2019 have been addressed with medications and security staff to protect hospital staff from patient and potential harms to himself, patient then became more calm and cooperative -03/29/2019: security staff dismissed from stand by as patient is calm and cooperative. 1 to 1 observation as needed. continuing patient's clonazepam, escitalopram, perphenazine (3) Depression: Depression Impulse control disorder, unspecified Personality disorder, unspecified -continue oral psychiatric medications as above -psychiatry to continue following the patient while under medical service. expects that once patient passes the foreign objects that patient will need inpatient psychiatric hospitalization under the 302 Ppx: SCDs Code status: FULL PCP: No PCP Admission and Anticipated Discharge Date Admission Date: March 27, 2019 Subjective 03/29/2019 KUB: 3 radiopaque foreign bodies are visualized within the small bowel. security staff dismissed from stand by as patient is calm and cooperat albert. patient reports pain of abdomen and pain on palpation. but no acute appearing physical distress. breathing on room air. no reported vomiting. no complaints of pain elsewhere or dizziness or headache Review of Systems Review of Systems: All systems reviewed & are unremarkable except as noted in HPI & below Physical Exam Constitutional: WD/WN, vitals as above Eyes: PERRL, conjunctivae normal, anicteric sclerae EOM intact bilaterally ENMT: external ear and nose normal, oropharynx normal Neck: trachea midline, no thyromegaly normal visual inspection Respiratory: normal respiratory effort, lungs clear to auscultation Cardiovascular: Rate/Rhythm: regular rate and regular rhythm Gastrointestinal (Abdomen): Inspection/Auscultation: abdomen normal to inspection Percussion/Palpation: abdomen soft Musculoskeletal: Head/Neck/Chest: normocephalic and head atraumatic Neurologic: PERRL, EOMI, accommodation nl, no face palsy, no dysarthria Psychiatric: Orientation: alert and oriented x 3 Results & Data ([facility]) Vital Signs (Past 12 Hours) Vital Signs Temp Pulse Resp BP Pulse Ox 03/29/19 07:00 36.7 C 61 18 125/78 96 03/29/19 01:19 36.8 C 64 18 139/78 98 (1) Ingestion of foreign body Encounter type: initial encounter Qualified Code(s): T18.9XXA - Foreign body of alimentary tract, part unspecified, initial encounter
[2019-03-29] MEDS: POLYETHYLENE (MIRALAX) 17 GM PACK PO SCH ×2 (09:51→20:22)
[2019-03-29] MEDS: NICOTINE 21 MG/24 HR TDSY TD SCH (09:51)
--- NOTE | 2019-03-29 10:57 | Surgery Consultation ---
Date of Consultation March 29, 2019 Assessment & Plan (1) Ingestion of foreign body: This is a 43y M PMH of depression and suicide attempt who was admitted for foreign body ingestion. Initially the patient ingested razor blades and GI was consulted for endoscopic removal. He subsequently ingested some EKG stickers thereafter, so remains admitted for observation. He is currently on a 1:1. GI recommended observe patient to await to see if they pass on their own. Surgery was consulted in the event patient obstructs and requires surgical intervention. For now agree with observation and obtaining a KUB tomorrow or Friday to evaluate for passage of the stickers into the colon. Hopefully he will not require surgical intervention. We will follow along peripherally. Please let us know if there are any changes in patient's condition. History of Present Illness Attending Physician: Vince Jackson MD History of Present Illness This is a 43y M who presents to the hospital on 03/27/19 after swallowing razor blades in attempt to hurt himself. GI was consulted and performed endoscopic retrieval of the foreign bodies. He thereafter swallowed some EKG stickers. Xiao sanchez remained admitted for psychiatric evaluation and to monitor for passage of EKG stickers. He currently is comfortable and denies pain, reports he has not yet passed the stickers. Allergies Allergy/AdvReac Type Severity Reaction Status Date / Time meperidine [From Demerol] Allergy Intermediate Rash Verified 03/29/19 09:21 morphine Allergy Intermediate Rash Verified 03/29/19 09:21 Home Medications Home Medications Medication Instructions Recorded Confirmed Type clonazepam 1 mg PO TID 03/27/19 03/27/19 History clonidine HCl 0.1 mg PO HS 03/27/19 03/27/19 History escitalopram oxalate 20 mg PO DAILY 03/27/19 03/27/19 History perphenazine 12 mg PO DAILY 03/27/19 03/27/19 History Patient History Medical History Depression Depression H/O foreign body ingestion Surgical History History of endoscopy S/P hernia surgery Family History Other Family history non-contributory Social History Preferred Language: Bruneian Communication Ability: Effective Multicultural Internship Required: No Beliefs That Will Affect Care: None Current Living Situation: Significant Other current occupational status: disabled Other Information That Helps Us Care for You: No Feels Safe at Home: No Is there a partner from a previous relationship who is making you feel unsafe now?: No Any Concerns about Your Family Situation: No Would You Like to Speak to Someone About Your Situation: No Safety Concerns: Afraid for Self Smoking Status: Current every day smoker Tobacco Type: cigarettes ; Cigarettes Per Day: 10 ; Hx Alcohol Use: No Hx Substance Use: Yes substance use type: marijuana Review of Systems Gastrointestinal: no abdominal pain Physical Exam Physical Exam: awake/alert Constitutional: well developed, well nourished and comfortable; no acute distress Respiratory: normal respiratory effort Cardiovascular: Rate/Rhythm: regular rate Gastrointestinal (Abdomen): Inspection/Auscultation: + abdominal surgical scar (midline abdominal scar from prior hernia repair, well healed) Results & Data Vital Signs (Past 12 Hours) Vital Signs Temp Pulse Resp BP Pulse Ox 03/29/19 07:00 36.7 C 61 18 125/78 96 03/29/19 01:19 36.8 C 64 18 139/78 98 PG Care Time/CCT Total # of Minutes Spent Total Time Spent with Patient: Total time spent is greater than 50% in coordin ation of care (as documented) at patient's floor/unit and/or counseling patient: Coding Level of Care Code 10989 Inpt Consult Level 2 Diagnoses Ingestion of foreign body T18.9XXA Encounter type: initial encounter (1) Ingestion of foreign body Encounter type: initial encounter Qualified Code(s): T18.9XXA - Foreign body of alimentary tract, part unspecified, initial encounter
[2019-03-29 13:18] LABS: Basophils # (auto) 0.02 K/uL (0-0.2); Basophils % (auto) 0.3 %; Eosinophils # (auto) 0.14 K/uL (0-0.5); Eosinophils % (auto) 1.9 %; Hematocrit (blood only) 39.3 % (42-52); Hemoglobin 13.4 g/dL (14.0-18.0); Immature Granulocytes # (auto) 0.01 K/uL (0.00-0.02); Immature Granulocytes % (auto) 0.1 %; Lymphocytes # (auto) 1.45 K/uL (1.2-3.4); Lymphocytes % (auto) 20.2 %; Mean Corpuscular Hemoglobin 29.5 pg (25-34); Mean Corpuscular Hgb Conc 34.1 g/dL (32-36); Mean Corpuscular Volume 86.4 fL (80-100); Mean Platelet Volume 11.3 fL (7.4-10.4); Monocytes # (auto) 0.57 K/uL (0.11-0.59); Monocytes % (auto) 7.9 %; Neutrophils # (auto) 4.99 K/uL (1.4-6.5); Neutrophils % (auto) 69.6 %; Platelet Count 228 K/uL (130-400); RDW Coefficient of Variation 13.6 % (11.5-14.5); RDW Standard Deviation 42.8 fL (36.4-46.3); Red Blood Count 4.55 M/uL (4.7-6.1); White Blood Count 7.18 K/uL (4.8-10.8)
[2019-03-29 13:56] LABS: BUN Creatinine Ratio 3.6 (10-20); Calcium 8.7 mg/dl (8.5-10.1); Creatinine Clr Calc Pharmacy 125.2 ml/min; Est GFR (African American) 123.1; Est GFR (Non-African American) 106.2; Potassium 3.3 mmol/L (3.5-5.1)
[2019-03-29] MEDS ORDERED: ACETAMINOPHEN 325 MG TAB PO PRN (14:40)
[2019-03-29] MEDS: TRAMADOL HCL 50 MG TABLET PO PRN (15:24)
[2019-03-29] MEDS ORDERED: POTASSIUM CHLORIDE 20 MEQ TABCR PO STA (18:48)
[2019-03-29] MEDS: cloNIDine HCL 0.1 MG TAB PO SCH (20:19)
[2019-03-30] MEDS: HYDROmorphone INJ 0.5 MG/0.5 ML SYR IV PRN ×6 (02:08→22:07)
[2019-03-30] MEDS: PANTOprazole 40 MG TAB PO SCH ×2 (07:41→20:04)
[2019-03-30] MEDS: clonazePAM 1 MG TAB PO SCH ×3 (07:41→20:02)
[2019-03-30] MEDS: OXYCODONE HCL IR 5 MG TAB (IMMEDIATE RELEASE) PO PRN ×2 (07:42→15:43)
[2019-03-30] MEDS: SENNA 8.6 MG TAB PO SCH (07:42)
[2019-03-30] MEDS: PERPHENAZINE 2 MG TABLET PO SCH (07:42)
[2019-03-30] MEDS: ESCITALOPRAM OXALATE 20 MG TAB PO SCH (07:42)
[2019-03-30] MEDS: POLYETHYLENE (MIRALAX) 17 GM PACK PO SCH ×2 (07:43→20:05)
[2019-03-30] MEDS: NICOTINE 21 MG/24 HR TDSY TD SCH (07:43)
[2019-03-30] MEDS ORDERED: MAGNESIUM HYDROXIDE SUSP 30 ML UDC PO ONE (07:58)
[2019-03-30] MEDS ORDERED: MAGNESIUM HYDROXIDE SUSP 30 ML UDC PO PRN (07:58)
--- NOTE | 2019-03-30 08:06 | Hospitalist Progress Note ---
Date of Service March 30, 2019 Assessment & Plan (1) Ingestion of foreign body: Ingestion of foreign body (multiple objects, and recurrent ingestions of foreign bodies) This is a 43-year-old male with PMH of depression who presents after ingesting reported 5 razor blades around noon on 03/27/2019 as a suicide attempt. -Patient had razor blades removed by upper endoscopy on 03/27/2019. Patient on 1 to 1 observation. A follow up KUB was ordered on 03/28/2019. Prior to going to KUB, patient swallowed EKG leads - patient reported he swallowed 4 but 1 to 1 nursing staff reported that that were 2 leads missing. Charge nurse was asked to notify gastroenterology service. Hospital doctor assessed patient. He is not in distress. He reports abdomen discomfort. He reports that this occurred after he swallowed the EKG leads. When initially asked why he did this, patient reports he just felt like it. When asked further about suicidal ideations, patient reports that he wanted to hurt himself and he just does not care anymore. Charge nurse informs hospitalist that gastroenterology does not advise of repeat upper endoscopy at this time and that to follow EKG leads with KUB imaging until they pass and if they do not pass then surgical consult would be advised - Three ingested foreign bodies measuring 9 mm within the body of the stomach in 03/28/2019. -03/29/2019 KUB: 3 radiopaque foreign bodies are visualized within the small bowel 03/30/2019: KUB to be performed -no bowel movement yet, continue liquid diet, patient had been declining scheduled Miralax (he is encouraged to take this to help make bowel movement), a substitute milk of magnesia to be started, patient is taking the senna, pain medications prn, monitor for bowel movements, and plan KUB on 03/30/2019 and 03/31/2019 (2) Suicide attempt: Has history of ingesting foreign bodies in the past when upset as suicide attempt, most recently a few years ago -Multiple inpatient psych admissions in the past with 2 in [place] and 1 at the [facility] in [place] -Follows with Dr. Samaniego of psychiatry in [place] and reports taking all medications as prescribed -inpatient psychiatry service for suicidal ideations and suicidal attempts have placed patient on 302, Code [place]ffman on 03/28/2019 have been addressed with medications and security staff to protect hospital staff from patient and potential harms to himself, patient then became more calm and cooperative -03/29/2019: security staff dismissed from stand by as patient is calm and cooperative. 1 to 1 observation as needed. continuing patient's clonazepam, escitalopram, perphenazine (3) Depression: Depression Impulse control disorder, unspecified Personality disorder, unspecified -continue oral psychiatric medications as above -psychiatry to continue following the patient while under medical service. expects that once patient passes the foreign objects that patient will need inpatient psychiatric hospitalization under the 302 Ppx: SCDs Code status: FULL PCP: No PCP Admission and Anticipated Discharge Date Admission Date: admission date March 27, 2019. discharge date undetermined. patient is under 302 and cannot leave inpatient hospitalization at this time Subjective cooperative today. no agitation. no bowel movement yet. patient not in acute distress. he takes the pain medication for abdomen discomfort. no vomiting. he is encouraged to take bowel regimen medications to encourage gut motility. if he can eventually excrete the EKG leads from GI tract, hopefully surgery can be avoided. patient is discussed that once the organic medical issues are resolved, he still needs psychiatry assessments because of being under 302 and the context of his previous actions. patient is cooperative with these plans as I outlined them with nurse and 1 to1 staff present Review of Systems Review of Systems: All systems reviewed & are unremarkable except as noted in HPI & below Physical Exam Constitutional: WD/WN, vitals as above Eyes: PERRL, conjunctivae normal, anicteric sclerae EOM intact bilaterally ENMT: external ear and nose normal, oropharynx normal Neck: trachea midline, no thyromegaly normal visual inspection Respiratory: normal respiratory effort, lungs clear to auscultation Cardiovascular: Rate/Rhythm: regular rate and regular rhythm Gastrointestinal (Abdomen): Inspection/Auscultation: abdomen normal to inspection Percussion/Palpation: abdomen soft Musculoskeletal: Head/Neck/Chest: normocephalic and head atraumatic Neurologic: PERRL, EOMI, accommodation nl, no face palsy, no dysarthria Psychiatric: Orientation: alert and oriented x 3 Results & Data ([facility]) Vital Signs (Past 12 Hours) Vital Signs Temp Pulse Resp BP BP Pulse Ox 03/30/19 07:32 36.7 C 64 18 119/79 96 03/29/19 22:56 36.4 C L 62 18 122/83 96 03/29/19 20:22 71 142/77 H (1) Ingestion of foreign body Encounter type: initial encounter Qualified Code(s): T18.9XXA - Foreign body of alimentary tract, part unspecified, initial encounter
[2019-03-30] MEDS: TRAMADOL HCL 50 MG TABLET PO PRN (12:00)
[2019-03-30] MEDS: cloNIDine HCL 0.1 MG TAB PO SCH (20:03)
[2019-03-31] MEDS: HYDROmorphone INJ 0.5 MG/0.5 ML SYR IV PRN ×6 (02:07→22:34)
[2019-03-31] MEDS: NICOTINE 21 MG/24 HR TDSY TD SCH (07:57)
[2019-03-31] MEDS: SENNA 8.6 MG TAB PO SCH (07:57)
[2019-03-31] MEDS: clonazePAM 1 MG TAB PO SCH ×3 (07:57→20:53)
[2019-03-31] MEDS: PANTOprazole 40 MG TAB PO SCH ×2 (07:57→20:53)
[2019-03-31] MEDS: PERPHENAZINE 2 MG TABLET PO SCH (07:57)
[2019-03-31] MEDS: ESCITALOPRAM OXALATE 20 MG TAB PO SCH (07:57)
[2019-03-31] MEDS: OXYCODONE HCL IR 5 MG TAB (IMMEDIATE RELEASE) PO PRN (07:58)
[2019-03-31] MEDS: POLYETHYLENE (MIRALAX) 17 GM PACK PO SCH ×2 (07:58→20:54)
--- NOTE | 2019-03-31 09:29 | Hospitalist Progress Note ---
Date of Service March 31, 2019 Assessment & Plan (1) Ingestion of foreign body: (2) Depression: Assessment & Plan (1) Ingestion of foreign body: per Dr. [place]'s notes: -Patient had razor blades removed by upper endoscopy on 03/27/2019. Patient on 1 to 1 observation. - Three ingested foreign bodies measuring 9 mm within the body of the stomach in 03/28/2019. -03/29/2019 KUB: 3 radiopaque foreign bodies are visualized within the small bowel - 03/31/19 reports increasing abdominal pain, no BM, No flatus as per patient repeat KUB ordered, patient encouraged to have this performed, he agreed NPO, Gen Surg re-evaluation (2) Suicide attempt: (3) Depression: Impulse control disorder, unspecified Personality disorder, unspecified - anxiety increased today as per patient called Psych Unit to request re-evaluation today continued on usual Psych meds will need to transition to 3s, once medically stable plan of care discussed with patient in detail all questions answered he is understanding, agreeable, comfortable with plan of care he verbalized gratitude to me today Admission and Anticipated Discharge Date Admission Date: March 27, 2019 Subjective ff up for foreign body ingestion, depression, suicidal attempt, etc. notified by RN as patient was declining procedures, etc. seen resting in bed, 1:1 observation in progress calm, irritable but cooperative states he "feels like shit" when requested to expound on this, patient reports central abdominal pain, sharp, moderate- severe constant, denies radiation, no nausea/vomiting today, last BM last Thurs, denies flatus no chest pain, dyspnea, palpitations, dizziness reports anxiety is much worse today, denies depression symptoms, denies suicidal ideations today denies other symptoms Review of Systems Review of Systems: All systems reviewed & are unremarkable except as noted in HPI & below Physical Exam Physical Exam: General- oriented x 3, not in distress, speaks in sentences with no effort or accessory muscle use Head- atraumatic Eyes- PERRL, EOMI, anicteric ENT- oropharynx clear Neck- supple, no JVD, no adenopathy, no thyromegaly; carotids +2/2, no bruits appreciated Lungs- clear to auscultation bilaterally, no rales/wheezes Heart- normal rate, regular rhythm; no murmur, no gallop, no rub appreciated Abdomen- normal bowel sounds, nondistended, soft, (+) mild tenderness all quadrants, no masses or hepatosplenomegaly Extremities- no pretibial edema, no calf tenderness; peripheral pulses intact Neuro- alert, oriented x 3; CN 2-12 grossly intact; motor 5/5 bilaterally;sensation 100% on all extremities; no other gross focal neurologic deficits Skin- warm & dry Psych- calm, irritable, reports increased anxiety, denies depression/suicidal ideations today Results & Data ([facility]) Vital Signs (Past 12 Hours) Vital Signs Temp Pulse Resp BP Pulse Ox 03/31/19 06:44 36.7 C 61 18 97/60 L 98 03/30/19 23:00 36.3 C L 78 20 109/70 96 Laboratory Results pending (1) Ingestion of foreign body Encounter type: initial encounter Qualified Code(s): T18.9XXA - Foreign body of alimentary tract, part unspecified, initial encounter
--- NOTE | 2019-03-31 09:43 | XRay Report ---
XR KUB/Abdomen 1 view CLINICAL HISTORY: ff up ingested foreign bodies COMPARISON STUDY: 03/29/2019 FINDINGS: There is no pathologic bowel dilatation. The previously identified 3 ingested foreign mary s now project over the upper rectum. IMPRESSION: 1. The 3 ingested radiopaque foreign bodies now project over the upper rectum. 2. No pathologic bowel dilatation. ACT 112: Negative or not required by law. Electronically signed by: Hamlet Butterfield M.D. 03/31/2019 9:41 AM
[2019-03-31] MEDS ORDERED: MAGNESIUM HYDROXIDE SUSP 30 ML UDC PO ONE (10:04)
--- NOTE | 2019-03-31 10:07 | Surgery Progress Note ---
Date of Service March 31, 2019 Assessment & Plan (1) Ingestion of foreign body: XR shows EKG pads in rectum exam benign regular diet continue bowel regimen Subjective c/o lower abdominal pain, no BM in several days Physical Exam Gastrointestinal (Abdomen): Inspection/Auscultation: abdomen not distended Percussion/Palpation: + abdomen tender (minimal) and abdomen soft; no guarding Results & Data Vital Signs (Past 12 Hours) Vital Signs Temp Pulse Resp BP Pulse Ox 03/31/19 06:44 36.7 C 61 18 97/60 L 98 03/30/19 23:00 36.3 C L 78 20 109/70 96 PG Care Time/CCT Total # of Minutes Spent Total Time Spent with Patient: Total time spent is greater than 50% in coordination of care (as documented) at patient's floor/unit and/or counseling patient: Coding Level of Care Code 00461 Subseq Hosp Care Lvl 1 Diagnoses Ingestion of foreign body T18.9XXA Encounter type: initial encounter (1) Ingestion of foreign body Encounter type: initial encounter Qualified Code(s): T18.9XXA - Foreign body of alimentary tract, part unspecified, initial encounter
[2019-03-31] MEDS ORDERED: MAGNESIUM HYDROXIDE SUSP 30 ML UDC PO PRN (10:09)
[2019-03-31] MEDS: DOCUSATE SODIUM/SENNA 50/8.6MG TAB PO SCH (10:15)
--- NOTE | 2019-03-31 10:32 | Psychiatric Progress Note ---
Date of Service March 31, 2019 Impression / Recommendations (1) Personality disorder, unspecified: - 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 (unspecified impulse control disorder) 03/31/2019 - Pt re-evaluated today to assess reports of increased anxiety and for discharge planning/disposition. - Pt reports improvement in mood, stating that he and his "made up" and that his actions were based on "stupidity" rather than intent to harm himself or end his life. He denies thoughts or intent to harm himself at this time, and has not engaged in self injury since the day of admission. He is willing for communication between our staff and his supports to discuss safety and discharge planning. - It is unlikely that his chronic pattern of maladaptive coping by ingesting foreign objects would be amenable to acute inpatient psychiatric treatment. He is no longer at acute risk of harm to himself, and no longer meets criteria for involuntary commitment. Recommend close and consistent outpatient follow-up with his psychiatrist and an outpatient therapist. The liaison nurse will coordinate care and confirm his outpatient treatment. Inpatient psychiatric treatment is not recommended by our service at time of medical clearance as: - The patient verbalizes the ingestion of these objects was not with the intent to harm himself, and in fact he took steps to prevent harm (wrapping razors in tape), - Acute stressor leading to the ingestion of these objects has since resolved and patient is able to verbalize a safety plan and ability to contract for safety outside of the hospital, - Pt has not continued attempts to ingest foreign objects over the past several days of hospitalization, demonstrating improvement in ability to cope with stressors with more appropriate means, - Pt is agreeable with referrals for outpatient therapy, and has an established relationship with an outpatient psychiatrist, - His regular ingestion of foreign objects is better viewed as a maladaptive coping strategy (such as cutting or burning), which is not generally done with the intent to bring about or physical harm, - Also, risk of ingestion of foreign objects can never be completely eliminated. (2) Impulse control disorder, unspecified: Risk Factors Assessment Male: Yes : Yes Health Problems: Yes Mental Health Diagnoses: Yes Substance Use Disorders: Yes Previous Attempt: Yes Previous Psychiatric Hospitalization: Yes Protective Factors Assessment : Yes Responsible for Young Children: No Employed: No Stable Relationships: No Good Rapport with Provider: Yes Interval History Chief Complaint "I'm feeling really good emotionally. My and I made up." Review of Systems Notes Constitutional: denied Cardiovascular: denied Respiratory: denied Gastrointestinal: reporting abdominal pain/discomfort Neurological: denied Psychiatric: denies symptoms other than stated above Total of at least 10 systems reviewed, pertinent positives as above and in HPI. Subjective Subjective Patient's case was reviewed and discussed during morning report. Received notification that patient is presenting with increased anxiety today, and still has not passed the foreign objects. Psychiatric assessment is requested, and was planned to occur prior to medical clearance in order to assess psychiatric recommendations for discharge. Pt is cooperative with psychiatric assessment. He provides verbal consent to allow Emilia Oneill PA-C to observe today's encounter. Pt states he is feeling "really good emotionally." He reports that he and his have made amends, and that they have been talking over the phone multiple times a day for the past several days of his hospitalization. Pt does admit that the stressor leading to ingestion of the razors was related to his telling him that she had been unfaithful. He states, "I really wasn't trying to kill myself, I even wrapped them up in tape so they wouldn't hurt me." He states, "I think I really just wanted attention and that's why I did it. When asked what led to ingestion of the EKG lead stickers, he states "I really don't know on that one, it was out of stupidity." Pt states that he has no intent to resort back to similar behavior, stating "never again after this!" This provider admitted that while she was hopeful this would be the case, that there is a need to take steps to promote safety at home. Pt states that he believes his mother already went through his house and removed any razors or other potentially harmful objects. Pt states that he is scheduled to meet with his outpatient psychiatrist on 04/14/2019 at 0940, and has transportation to this appointment. He is agreeable with referral for outpatient therapy, and was educated on the importance of this therapeutic relationship in order to develop healthier coping strategies. Pt was also agreeable with allowing us to speak with his mother or in order to ensure they had no safety concerns regarding discharge home. Pt does not believe that he would benefit from inpatient psychiatric treatment, and reports motivation to be compliant with outpatient treatment. Regarding anxiety, patient believes it is isolated to the fact that "these things still haven't come out yet. I just want to go home and move on." Pt denies any other needs from our service at this time. Procedures Performed Operation Date: 03/27/19 16:00 Actual Procedures p EGD Foreign Body Removal, Gastritis with Biopsies(Not Applicable) - Sarwat Smith Case, DO Physical Exam Psychiatric Orientation: alert, oriented x 3 and cooperative (and pleasant) Apperance: appropriately dressed (for situation; wearing paper scrubs), appropri ately groomed and appeared stated age Eye Contact: good eye contact Motor Behavior: no abnormal motor movements (observed while sitting upright on bed) Speech: normal rate/rhythm/volume of speech Affect: euthymic affect and mood congruent with affect Mood: no depressed mood ("I'm feeling really good emotionally") Thought Process: goal directed thought process, clear/coherent thought process and thought association intact Thought Content: reality based without delusions; no hopelessness and no worthlessness Suicidal Thoughts: denies suicidal thoughts, denies suicidal plan and denies suicidal intent Continues to report that ingestion of foreign objects was not done with the intent to harm himself physically or end his life Homicidal Thoughts: denies homicidal thoughts Hallucinations: no auditory hallucinations and no visual hallucinations Cognition: recent memory grossly intact, attention grossly intact and language grossly intact Insight: + limited insight (overall, though improved from admission as it relates to coping skills) Judgement: + poor judgement Vital Signs (Past 24 Hours) Last Vital Signs Temp 36.7 C 03/31/19 06:44 Pulse 61 03/31/19 06:44 Resp 18 03/31/19 06:44 BP 97/60 L 03/31/19 06:44 Pulse Ox 98 03/31/19 06:44 Results & Data ([facility]) Current Inpatient Medications Current Inpatient Medications: Current Inpatient Medications Acetaminophen (Tylenol) 325 mg PO Q6H PRN PRN Reason: Pain or Fever Stop: 04/28/19 14:39 Clonazepam (Klonopin) 1 mg PO TID BRYAN Stop: 04/27/19 20:59 Last Admin: 03/31/19 07:57 Dose: 1 mg Documented by: Clonidine HCl (Catapres) 0.1 mg PO HS BRYAN Stop: 04/27/19 20:59 Last Admin: 03/30/19 20:03 Dose: 0.1 mg Documented by: Diphenhydramine HCl (Benadryl) 12.5 mg IV Q8H PRN PRN Reason: Allergy Symptoms Stop: 04/27/19 09:58 Escitalopram Oxalate (Lexapro Tab) 20 mg PO DAILY [facility] Stop: 04/27/19 15:29 Last Admin: 03/31/19 07:57 Dose: 20 mg Documented by: Haloperidol Lactate (Haldol) 5 mg IM ONCE PRN PRN Reason: Agitation Stop: 04/27/19 12:43 Hydromorphone HCl (Dilaudid) 0.5 mg IV Q4H PRN PRN Reason: moderate to severe pain Stop: 04/11/19 09:57 Last Admin: 03/31/19 10:15 Dose: 0.5 mg Documented by: Ioversol (Optiray 320 100ml) 90 ml IV ONCE PRN PRN Reason: Interaction Checking Stop: 03/31/19 15:24 Last Admin: 03/27/19 15:26 Dose: 90 ml Documented by: Magnesium Hydroxide (Milk Of Magnesia) 30 ml PO Q6H PRN PRN Reason: Constipation Stop: 04/29/19 07:57 Miscellaneous (Remove Nicoderm Patch) 1 ea N/A DAILY@0859 [facility] Stop: 04/29/19 08:58 Last Admin: 03/31/19 09:06 Dose: 1 ea Documented by: Nicotine (Nicoderm Cq) 21 mg TD QAM [facility] Stop: 04/28/19 09:14 Last Admin: 03/31/19 07:57 Dose: 21 mg Documented by: Pantoprazole Sodium (Protonix) 40 mg PO BID [facility] Stop: 04/27/19 08:59 Last Admin: 03/31/19 07:57 Dose: 40 mg Documented by: Perphenazine (Trilafon) 12 mg PO DAILY [facility] Stop: 04/27/19 15:29 Last Admin: 03/31/19 07:57 Dose: 12 mg Documented by: Polyethylene Glycol (Miralax Powder Packet) 17 gm PO DAILY PRN PRN Reason: Constipation Stop: 04/27/19 15:24 Polyethylene Glycol (Miralax Powder Packet) 17 gm PO Q12H [facility] Stop: 04/28/19 09:14 Last Admin: 03/31/19 07:58 Dose: Not Given Documented by: Senna/Docusate Sodium (Senokot S) 1 tab PO QAM [facility]AN Stop: 04/30/19 10:14 Last Admin: 03/31/19 10:15 Dose: 1 tab Documented by: Sennosides (Senokot) 8.6 mg PO QAM [facility] Stop: 04/28/19 08:59 Last Admin: 03/31/19 07:57 Dose: 8.6 mg Documented by: Tramadol HCl (Ultram) 25 mg PO Q4H PRN PRN Reason: Pain Stop: 04/27/19 14:38 Last Admin: 03/30/19 12:00 Dose: 25 mg Documented by: Mental Health & Subst Abuse Tx Psychiatrist Name of Psychiatrist: Carina Johnston - Dr. Samaniego Psychiatrist's Date of Appointment with Psychiatrist: 04/14/19 Time of Appointment with Psychiatrist: 09:40
[2019-03-31 10:54] LABS: 7-Aminoclonaz, Confirm 1940 ng/mL (<25); Codeine Urine NEGATIVE ng/mL (<50); Hydro-Alp Ur, GC/MS NEGATIVE ng/mL (<25); Hydrocodone Urine NEGATIVE ng/mL (<50); Hydromor Urine 495 ng/mL (<50); Hydroxyethylflurazepam, Conf NEGATIVE ng/mL (<50); Hydroxytriazolam NEGATIVE ng/mL (<50); Lorazepam, Ur GC/MS NEGATIVE ng/mL (<50); MDA negative; MDEA negative; MDMA (Ecstasy) Urine, Confirm negative; Marijuana Quant, GCMS Urine 1850 ng/mL (<5); Morphine Urine NEGATIVE ng/mL (<50); Nordiazepam, Confirm NEGATIVE ng/mL (<50); Norhydrocodone Conf Ur NEGATIVE ng/mL (<50); Noroxycodone Urine NEGATIVE ng/mL (<50); Oxazepam Ur, GC/MS NEGATIVE ng/mL (<50); Oxycodone Urine NEGATIVE ng/mL (<50); Oxymorph Urine NEGATIVE ng/mL (<50); Temazepam, Confirm NEGATIVE ng/mL (<50)
[2019-03-31 11:10] LABS: Basophils # (auto) 0.03 K/uL (0-0.2); Basophils % (auto) 0.4 %; Eosinophils # (auto) 0.39 K/uL (0-0.5); Eosinophils % (auto) 4.6 %; Hematocrit (blood only) 43.2 % (42-52); Immature Granulocytes # (auto) 0.02 K/uL (0.00-0.02); Immature Granulocytes % (auto) 0.2 %; Lymphocytes # (auto) 1.58 K/uL (1.2-3.4); Lymphocytes % (auto) 18.8 %; Mean Corpuscular Hemoglobin 29.6 pg (25-34); Mean Corpuscular Hgb Conc 34.7 g/dL (32-36); Mean Corpuscular Volume 85.2 fL (80-100); Monocytes # (auto) 0.79 K/uL (0.11-0.59); Monocytes % (auto) 9.4 %; Neutrophils # (auto) 5.59 K/uL (1.4-6.5); Neutrophils % (auto) 66.6 %; Platelet Count 263 K/uL (130-400); RDW Coefficient of Variation 13.6 % (11.5-14.5); RDW Standard Deviation 42.1 fL (36.4-46.3); Red Blood Count 5.07 M/uL (4.7-6.1)
[2019-03-31 11:32] LABS: Albumin Level 3.5 gm/dl (3.4-5.0); BUN Creatinine Ratio 4.3 (10-20); Calcium 9.1 mg/dl (8.5-10.1); Est GFR (African American) 93.8; Est GFR (Non-African American) 80.9; Potassium 4.3 mmol/L (3.5-5.1)
[2019-03-31 11:39] LABS: Albumin Globulin Ratio 0.8 (0.9-2); Bilirubin,Total 0.5 mg/dl (0.2-1); Globulin 4.5 gm/dl (2.5-4.0)
[2019-03-31] MEDS: TRAMADOL HCL 50 MG TABLET PO PRN ×3 (12:12→20:53)
[2019-03-31] MEDS: cloNIDine HCL 0.1 MG TAB PO SCH (20:52)
[2019-04-01] MEDS: HYDROmorphone INJ 0.5 MG/0.5 ML SYR IV PRN ×3 (02:31→10:14)
[2019-04-01] MEDS: clonazePAM 1 MG TAB PO SCH (08:28)
[2019-04-01] MEDS: ESCITALOPRAM OXALATE 20 MG TAB PO SCH (08:29)
[2019-04-01] MEDS: SENNA 8.6 MG TAB PO SCH (08:29)
[2019-04-01] MEDS: PERPHENAZINE 2 MG TABLET PO SCH (08:29)
[2019-04-01] MEDS: POLYETHYLENE (MIRALAX) 17 GM PACK PO SCH (08:29)
[2019-04-01] MEDS: DOCUSATE SODIUM/SENNA 50/8.6MG TAB PO SCH (08:30)
[2019-04-01] MEDS: NICOTINE 21 MG/24 HR TDSY TD SCH (08:31)
[2019-04-01] MEDS: PANTOprazole 40 MG TAB PO SCH (08:31)
--- NOTE | 2019-04-01 08:56 | XRay Report ---
KUB HISTORY: Follow up study in a patient with foreign body ingestion ff up foreign bodies COMPARISON: KUB 03/31/2019 FINDINGS: The bowel gas pattern is non-obstructive. Previously noted 3 metallic density foreign mary s project over the rectum are no longer present. There is no organomegaly. No renal calculi. No uret eral calculi. No pneumoperitoneum or pneumatosis. No fracture. IMPRESSION: 1. Interval passage of the previously noted radiopaque foreign bodies of the rectum. 2. No bowel obstruction or pneumoperitoneum. ACT 112: Negative or not required by law. The above report was generated using voice recognition software. It may contain grammatical, syntax o r spelling errors. Electronically signed by: Jayden Barone M.D. 04/01/2019 8:55 AM
--- NOTE | 2019-04-01 10:01 | Hospitalist Progress Note ---
Date of Service April 01, 2019 Assessment & Plan (1) Ingestion of foreign body: (2) Depression: Assessment & Plan (1) Ingestion of foreign body: per Dr. Jackson's notes: -Patient had razor blades removed by upper endoscopy on 03/27/2019. Patient on 1 to 1 observation. - Three ingested foreign bodies measuring 9 mm within the body of the stomach in 03/28/2019 --> likely EKG leads -03/29/2019 KUB: 3 radiopaque foreign bodies are visualized within the small bowel - 03/31/19 reports increasing abdominal pain, no BM, No flatus as per patient repeat KUB ordered, patient encouraged to have this performed, he agreed NPO, Gen Surg re-evaluation--> did not recommend surgical removal - 04/01/19 patient reports passing 3 EKG leads today with BM, no signs of bleeding states abdominal pain is much better repeat KUB: interval passage of foreign bodies - continue Protonix BID x 4 months per GI recommendation ff up with PCP in 1 week (2) Personality Disorder 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 (unspecified impulse control disorder) - requested re-evaluation by Psych [facility] [place] 03/31/19 - Inpatient psychiatric treatment is not recommended by our service at time of medical clearance as: - The patient verbalizes the ingestion of these objects was not with the intent to harm himself, and in fact he took steps to prevent harm (wrapping razors in tape), - Acute stressor leading to the ingestion of these objects has since resolved and patient is able to verbalize a safety plan and ability to contract for safety outside of the hospital, - Pt has not continued attempts to ingest foreign objects over the past several days of hospitalization, demonstrating improvement in ability to cope with stressors with more appropriate means, - Pt is agreeable with referrals for outpatient therapy, and has an established relationship with an outpatient psychiatrist, - His regular ingestion of foreign objects is better viewed as a maladaptive coping strategy (such as cutting or burning), which is not generally done with the intent to bring about or physical harm, - Also, risk of ingestion of foreign objects can never be completely eliminated. - 04/01/19 discussed with Psych Liaison ALEKSANDRA Bernardo requested patient re-evaluation today, cleared for discharge to home, also discussed final discharge plans including withdrawal of 302 petition psych service recommended to continue present Psych medications until follow up with Psychiatrist on 04/08/19 - continue to evaluate capacity for driving, carrying a transport driver's license given above medical condition plan of care discussed with patient in detail and at length strongly emphasized not to ingest foreign objects , consequences explained including serious medical injuries, and even also strongly encouraged to take medications as prescribed, and follow up with PCP, Psychiatrist closely and regularly he reports he does not drive all questions answered he is understanding, agreeable, comfortable with plan of care he verbalized gratitude again to me today Admission and Anticipated Discharge Date Admission Date: March 27, 2019 Subjective ff up for foreign body ingestion [employer] at bedside seen sleeping in bed, comfortable awakened easily calm, cooperative, oriented x 3 had 1 BM this morning, formed, no blood, patient reports he saw 3 EKG leads states he feels much better today mild lower abdominal pain, no nausea, tolerating diet well, no urinary symptoms states mood is much better, denies anxiety, depression symptoms, suicidal ideations no other symptoms states he is much better and would like to be discharged today Review of Systems Review of Systems: All systems reviewed & are unremarkable except as noted in HPI & below Physical Exam Physical Exam: General- oriented x 3, not in distress, speaks in sentences with no effort or accessory muscle use Eyes- anicteric Neck- no JVD Lungs- clear breath sounds bilaterally, no rales/wheezes Heart- normal rate, regular rhythm; no murmurs Abdomen- normal bowel sounds, nondistended, soft, nontender Extremities- no pretibial edema, no calf tenderness Neuro- alert, oriented x 3; no gross focal neurologic deficits Skin- warm & dry Psych- appropriate affect, light mood, calm, cooperative Results & Data ([facility]) Vital Signs (Past 12 Hours) Vital Signs Temp Pulse Resp BP BP Pulse Ox 04/01/19 06:35 36.3 C L 66 17 113/77 98 04/01/19 00:02 109/72 03/31/19 22:47 36.4 C L 55 L 20 116/76 98 (1) Ingestion of foreign body Encounter type: initial encounter Qualified Code(s): T18.9XXA - Foreign body of alimentary tract, part unspecified, initial encounter
--- NOTE | 2019-04-01 10:25 | Psychiatric Progress Note ---
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 (unspecified impulse control disorder) 04/01/2019 - Pt reassessed today in preparation for discharge, as requested by attending physician - Pt was initially seen on psychiatric consult service on 03/28/2019 with recommendation to resume home psychiatric medications once patient was cleared for PO intake - Pt continues to deny SI/HI, SIB, and ongoing thoughts to utilize maladaptive coping strategies - Pt states he called [facility] to schedule a therapy intake appointment - scheduled for 04/05/2019 at 9:50 - He does present an appointment card for psychiatry appointment on 04/14/2019 at 10:50 - No indication at this time for inpatient psychiatric treatment as pt denies SI, reports resolution of stressor leading to ingestion of foreign objects, verbalizes having support from family and ex-fiance, has not continued to engage in maladaptive coping strategies such as ingesting foreign objects, and has outpatient psychiatric appointments scheduled - 302 warrant would need dispositioned at time of medical clearance/discharge 03/31/2019 - Pt re-evaluated today to assess reports of increased anxiety and for discharge planning/disposition. - Pt reports improvement in mood, stating that he and his "made up" and that his actions were based on "stupidity" rather than intent to harm himself or end his life. He denies thoughts or intent to harm himself at this time, and has not engaged in self injury since the day of admission. He is willing for communication between our staff and his supports to discuss safety and discharge planning. - It is unlikely that his chronic pattern of maladaptive coping by ingesting foreign objects would be amenable to acute inpatient psychiatric treatment. He is no longer at acute risk of harm to himself, and no longer meets criteria for involuntary commitment. Recommend close and consistent outpatient follow-up with his psychiatrist and an outpatient therapist. The liaison nurse will coordinate care and confirm his outpatient treatment. Inpatient psychiatric treatment is not recommended by our service at time of medical clearance as: - The patient verbalizes the ingestion of these objects was not with the intent to harm himself, and in fact he took steps to prevent harm (wrapping razors in tape), - Acute stressor leading to the ingestion of these objects has since resolved and patient is able to verbalize a safety plan and ability to contract for safety outside of the hospital, - Pt has not continued attempts to ingest foreign objects over the past several days of hospitalization, demonstrating improvement in ability to cope with stressors with more appropriate means, - Pt is agreeable with referrals for outpatient therapy, and has an established relationship with an outpatient psychiatrist, - His regular ingestion of foreign objects is better viewed as a maladaptive coping strategy (such as cutting or burning), which is not generally done with the intent to bring about or physical harm, - Also, risk of ingestion of foreign objects can never be completely eliminated. (2) Impulse control disorder, unspecified: Risk Factors Assessment Male: Yes : Yes Health Problems: Yes Mental Health Diagnoses: Yes Substance Use Disorders: Yes Previous Attempt: Yes Previous Psychiatric Hospitalization: Yes Protective Factors Assessment : Yes Responsible for Young Children: No Employed: No Stable Relationships: No Good Rapport with Provider: Yes Interval History Chief Complaint "I'm feeling so much better now!" Review of Systems Notes Constitutional: denied Cardiovascular: denied Respiratory: denied Gastrointestinal: denied Neurological: denied Psychiatric: denies symptoms other than stated above Total of at least 10 systems reviewed, pertinent positives as above and in HPI. Subjective Subjective Patient's case was reviewed and discussed during morning report. At request of the hospitalist service, patient was re-evaluated by our team as medical clearance is and discharge are expected today. It was reported that patient was successful at expelling the foreign objects this morning and is denying other physical complaints at this time. This provider met with patient, interaction observed by Emilia Oneill PA-C with patient's verbal permission. Pt states that he is feeling "so much better now", and is "excited to go home." Pt states that his mother and ex-fiance are aware of anticipated discharge. Pt is denying SI stating he has no intent to harm himself and is able to contract for safety in the outpatient setting. Pt reports that he called [facility] "back line", and was able to be scheduled for a therapy intake appointment on 04/05/2019 at 9:50. Pt states he has a scheduled appointment with his psychiatrist on 04/14/2019 at 10:50 as well. Pt was informed our staff would attempt to call and confirm these appointments. Pt states that he is strongly against resorting to this behavior again as "it was stupid. That doctor told me I'm really malia, that I could . I certainly don't want that." Pt denies other needs or concerns from our service at this time. Procedures Performed Operation Date: 03/27/19 16:00 Actual Procedures p EGD Foreign Body Removal, Gastritis with Biopsies(Not Applicable) - Sarwat Smiht Case, DO Physical Exam Psychiatric Orientation: alert, oriented x 3 and cooperative (and pleasant) Apperance: appropriately dressed (for situation, wearing paper scrubs) and + disheveled (appearing mildly unkempt, unshaven) Eye Contact: good eye contact Motor Behavior: no abnormal motor movements (observed while sitting upright in bed) Speech: normal rate/rhythm/volume of speech Affect: euthymic affect (appearing excited) and mood congruent with affect Mood: no depressed mood ("I'm feeling so much better") Thought Process: goal directed thought process, clear/coherent thought process and thought association intact Thought Content: reality based without delusions; no hopelessness Suicidal Thoughts: denies suicidal thoughts and denies suicidal intent Homicidal Thoughts: denies homicidal thoughts Hallucinations: no auditory hallucinations and no visual hallucinations Cognition: attention grossly intact and language grossly intact Insight: + fair insight (though chronically poor insight as it relates to managing stress/emotions) Judgement: + fair judgement (at present) Vital Signs (Past 24 Hours) Last Vital Signs Temp 36.3 C L 04/01/19 06:35 Pulse 66 04/01/19 06:35 Resp 17 04/01/19 06:35 BP 113/77 04/01/19 06:35 Pulse Ox 98 04/01/19 06:35 Results & Data ([facility]) Laboratory Results Laboratory Results - last 24 hr 03/27/19 03/31/19 03/31/19 15:00 10:40 10:40 WBC 8.40 RBC 5.07 Hgb 15.0 Hct 43.2 MCV 85.2 MCH 29.6 MCHC 34.7 RDW Std Deviation 42.1 RDW Coeff of Tobias 13.6 Plt Count 263 MPV 11.0 H Immature Gran % (Auto) 0.2 Neut % (Auto) 66.6 Lymph % (Auto) 18.8 Haskell % (Auto) 9.4 Eos % (Auto) 4.6 Baso % (Auto) 0.4 Immature Gran # (Auto) 0.02 Neut # (Auto) 5.59 Lymph # (Auto) 1.58 Haskell # (Auto) 0.79 H Eos # (Auto) 0.39 Baso # (Auto) 0.03 Sodium 137 Potassium 4.3 D Chloride 104 Carbon Dioxide 27 Anion Gap 5.0 BUN 5 L Creatinine 1.11 Est Cr Clr Drug Dosing 97.0 Est GFR ( Amer) 93.8 Est GFR (Non-Af Amer) 80.9 BUN/Creatinine Ratio 4.3 L Glucose 89 Calcium 9.1 Total Bilirubin 0.5 AST 44 H ALT 63 Alkaline Phosphatase 96 Total Protein 8.0 Albumin 3.5 Globulin 4.5 H Albumin/Globulin Ratio 0.8 L U Codeine Confrm GC/MS NEGATIVE Ur Morphine (GC/MS) NEGATIVE Ur Hydrocodone (GC/MS) NEGATIVE Ur Norhydrocodone NEGATIVE Ur Noroxycodone NEGATIVE Urine Oxycodone (GC/MS) NEGATIVE U Oxymorphone GC/MS NEGATIVE Ur Hydromorphone (GC/MS) 495 H Urine MDEA negative MDMA negative Urine MDMA negative U OH-Alprazolam Confrm NEGATIVE 7-Amino Clonazepam 1940 H Ur Nordiazepam Confirm NEGATIVE U OH-ethylflurazepam NEGATIVE U Lorazepam Cnf GC/MS NEGATIVE U Oxazepam Confm GC/MS NEGATIVE Ur Temazepam Confirm NEGATIVE U OH-Triazolam Confirm NEGATIVE U OH-Midazolam Confirm NEGATIVE U Marijuana THC Carboxy 1850 H Drug Screen Comment SEE NOTE Current Inpatient Medications Current Inpatient Medications: Current Inpatient Medications Acetaminophen (Tylenol) 325 mg PO Q6H PRN PRN Reason: Pain or Fever Stop: 04/28/19 14:39 Clonazepam (Klonopin) 1 mg PO TID BRYAN Stop: 04/27/19 20:59 Last Admin: 04/01/19 08:28 Dose: 1 mg Documented by: Clonidine HCl (Catapres) 0.1 mg PO HS BRYAN Stop: 04/27/19 20:59 Last Admin: 03/31/19 20:52 Dose: 0.1 mg Documented by: Diphenhydramine HCl (Benadryl) 12.5 mg IV Q8H PRN PRN Reason: Allergy Symptoms Stop: 04/27/19 09:58 Escitalopram Oxalate (Lexapro Tab) 20 mg PO DAILY BRYAN Stop: 04/27/19 15:29 Last Admin: 04/01/19 08:29 Dose: 20 mg Documented by: Haloperidol Lactate (Haldol) 5 mg IM ONCE PRN PRN Reason: Agitation Stop: 04/27/19 12:43 Magnesium Hydroxide (Milk Of Magnesia) 30 ml PO Q6H PRN PRN Reason: Constipation Stop: 04/29/19 07:57 Last Admin: 04/01/19 02:34 Dose: 30 ml Documented by: Miscellaneous (Remove Nicoderm Patch) 1 ea N/A DAILY@[id number] [facility] Stop: 04/29/19 08:58 Last Admin: 04/01/19 08:38 Dose: 1 ea Documented by: Nicotine (Nicoderm Cq) 21 mg TD QAM [facility] Stop: 04/28/19 09:14 Last Admin: 04/01/19 08:31 Dose: 21 mg Documented by: Pantoprazole Sodium (Protonix) 40 mg PO BID [facility] Stop: 04/27/19 08:59 Last Admin: 04/01/19 08:31 Dose: 40 mg Documented by: Perphenazine (Trilafon) 12 mg PO DAILY BRYAN Stop: 04/27/19 15:29 Last Admin: 04/01/19 08:29 Dose: 12 mg Documented by: Polyethylene Glycol (Miralax Powder Packet) 17 gm PO DAILY PRN PRN Reason: Constipation Stop: 04/27/19 15:24 Polyethylene Glycol (Miralax Powder Packet) 17 gm PO Q12H BRYAN Stop: 04/28/19 09:14 Last Admin: 04/01/19 08:29 Dose: Not Given Documented by: Senna/Docusate Sodium (Senokot S) 1 tab PO QAM BRYAN Stop: 04/30/19 10:14 Last Admin: 04/01/19 08:30 Dose: 1 tab Documented by: Sennosides (Senokot) 8.6 mg PO QAM BRYAN Stop: 04/28/19 08:59 Last Admin: 04/01/19 08:29 Dose: 8.6 mg Documented by: Tramadol HCl (Ultram) 25 mg PO Q4H PRN PRN Reason: Pain Stop: 04/27/19 14:38 Last Admin: 03/31/19 20:53 Dose: 25 mg Documented by: Mental Health & Subst Abuse Tx Psychiatrist Name of Psychiatrist: Carina Johnston - Dr. Samaniego Psychiatrist's Date of Appointment with Psychiatrist: 04/14/19 Time of Appointment with Psychiatrist: 10:50 Psychiatric Appointment Comment: VM left by staff to confirm appointment, no return phone calls received Therapist Name of Therapist: Carina Johnston - Therapy Intake Appointment Therapist's Date of Therapist Appointment: 04/05/19 Time of Therapist Appointment: 09:50 Therapy Appointment Comment: ITZ left by staff to confirm appointment, no return phone calls received
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
== END 2019-04-01 13:26 | disposition home health service (06) | DRG 395 ==
LOC: ED 12:49 → OR 16:11 → 2W 16:11 → SUATTDRO 19:16 → 2W 19:16

== ENCOUNTER 2019-12-27 21:54 | Inpatient (IN) ==
[2019-12-27] MEDS ORDERED: HYDROmorphone INJ 1 MG/ML SYRINGE IV STA (22:20)
[2019-12-27 22:40] LABS: Appearance Urine Clear (Clear); Bacteria Urine Automated Negative (Negative); Bilirubin Urine Negative (Negative); Blood Urine Negative (Negative); Cast Urine Automated 0 /lpf (0-5); Color Urine Yellow; Epithelial Cell Urine Auto 0-5 /lpf (0-5); Glucose Urine UA Negative (Negative); Ketones Urine Negative (Negative); Leukocyte Esterase Urine Trace (Negative); Nitrite Urine Negative (Negative); Protein Urine Negative (Negative); RBC Urine Automated 0-4 /hpf (0-4); Specific Gravity Urine 1.007 (1.000-1.030); Urobilinogen Urine Negative (Negative); pH Urine 6.5 (4.5-7.5)
[2019-12-27 22:55] LABS: Amphetamines+Metham, Urine Neg (Neg); Barbiturates, Urine Neg (Neg); Benzodiazepine, Urine Neg (Neg); Cocaine, Urine Neg (Neg); MDMA (Ecstacy), Urine Neg (Neg); Methadone, Urine Neg (Neg); Opiate, Urine Neg (Neg); Phencyclidine, Urine Neg (Neg)
[2019-12-27 23:15] LABS: Basophils # (auto) 0.02 K/uL (0-0.2); Basophils % (auto) 0.3 %; Eosinophils # (auto) 0.31 K/uL (0-0.5); Eosinophils % (auto) 3.9 %; Hematocrit (blood only) 39.9 % (42-52); Hemoglobin 13.2 g/dL (14.0-18.0); Immature Granulocytes # (auto) 0.02 K/uL (0.00-0.02); Immature Granulocytes % (auto) 0.3 %; Lymphocytes % (auto) 26.4 %; Mean Corpuscular Hemoglobin 29.3 pg (25-34); Mean Corpuscular Hgb Conc 33.1 g/dL (32-36); Mean Corpuscular Volume 88.5 fL (80-100); Mean Platelet Volume 11.2 fL (7.4-10.4); Monocytes # (auto) 0.65 K/uL (0.11-0.59); Monocytes % (auto) 8.2 %; Neutrophils # (auto) 4.85 K/uL (1.4-6.5); Neutrophils % (auto) 60.9 %; Platelet Count 110 K/uL (130-400); RDW Coefficient of Variation 13.8 % (11.5-14.5); RDW Standard Deviation 45.1 fL (36.4-46.3); Red Blood Count 4.51 M/uL (4.7-6.1); White Blood Count 7.95 K/uL (4.8-10.8)
[2019-12-27 23:35] LABS: Albumin Level 3.4 gm/dl (3.4-5.0); BUN Creatinine Ratio 5.4 (10-20); Calcium 8.8 mg/dl (8.5-10.1); Est GFR (African American) 83.9; Est GFR (Non-African American) 72.4
[2019-12-27] MEDS ORDERED: fentaNYL citrate 100 MCG/2 ML VIAL ONE (23:41)
[2019-12-27] MEDS ORDERED: MIDAZOLAM HCL 1 MG/ML 2ML VIAL ONE (23:41)
[2019-12-27] MEDS ORDERED: DEXAMETHASONE SOD INJ 4 MG/ML VIAL ONE (23:41)
[2019-12-27] MEDS ORDERED: ONDANSETRON INJ 2 MG/ML 2 ML VIAL ONE (23:41)
[2019-12-27] MEDS ORDERED: SUCCINYLCHOLINE CHLORIDE 20 MG/ML 10 ML VIAL IV ONE (23:41)
[2019-12-27] MEDS ORDERED: PROPOFOL IV EMULSION 10 MG/ML 20 ML VIAL IV ONE (23:41)
[2019-12-27 23:46] LABS: Albumin Globulin Ratio 0.9 (0.9-2); Bilirubin,Total 0.2 mg/dl (0.2-1); Globulin 3.8 gm/dl (2.5-4.0); Thyroid Stimulating Hormone 2.1 uIu/ml (0.300-4.500); Total Protein 7.2 gm/dl (6.4-8.2)
[2019-12-27] MEDS ORDERED: ePHEDrine sulfate 50 MG/ML AMP IV PRN (23:47)
[2019-12-27] MEDS ORDERED: ONDANSETRON INJ 2 MG/ML 2 ML VIAL IV PRN (23:47)
[2019-12-27] MEDS ORDERED: fentaNYL citrate 100 MCG/2 ML VIAL IV PRN (23:47)
[2019-12-27] MEDS ORDERED: ATROPINE SULFATE 0.1 MG/ML 10ML SYR IV PRN (23:47)
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
--- NOTE | 2019-12-27 23:47 | Anesthesiology Consultation ---
Date of Service December 27, 2019 Assessment & Plan (1) Encounter for pre-operative examination: Chart Review Chart Review: Acceptable Risk for Surgery and Patient NOT seen in Pre Admission Testing Consults Requested none History Surgery Operation Date: 12/28/19 00:30 Proposed Procedures p Esophagogastroduodenoscopy - Timmy Matias DO Height/Weight Height: 6 ft 1 in Weight: 92.4 kg Allergies Allergy/AdvReac Type Severity Reaction Status Date / Time mushroom Allergy Severe Anaphylaxis Verified 12/27/19 22:12 meperidine [From Demerol] Allergy Intermediate Rash Verified 12/27/19 22:12 morphine Allergy Intermediate Rash Verified 12/27/19 22:12 lamotrigine [From Lamictal] AdvReac Unknown Hallucinati Verified 12/27/19 22:13 ng Medications Home Medications Medication Instructions Recorded Confirmed Last Taken clonazepam 1 mg PO TID 03/27/19 12/27/19 12/27/19 clonidine HCl 0.1 mg PO HS 03/27/19 12/27/19 1 Day Ago ~12/26/19 escitalopram oxalate 20 mg PO DAILY 03/27/19 12/27/19 12/27/19 perphenazine 12 mg PO DAILY 03/27/19 12/27/19 1 Day Ago ~12/26/19 Multi Vitamin 1 tab PO DAILY 12/27/19 12/27/19 12/27/19 gabapentin 600 mg PO TID 12/27/19 12/27/19 12/27/19 trazodone 50 mg PO HS 12/27/19 12/27/19 1 Day Ago ~12/26/19 Past Medical History Medical History (Updated 12/27/19 @ 23:57 by Ej Parker MD) Depression Depression H/O foreign body ingestion Exercise / Class Metabolic Activity II 4-5 Yardwork/Stairs/Walk up hill Past Family History Family History Other Family history non-contributory Past Surgical History Surgical History History of endoscopy S/P hernia surgery Past Anesthesia History No Hx of Anesthesia Complications and No Family Hx of Anesthesia Complications History of PONV No Hx of PONV and No Hx of Motion Sickness Social History Smoking Status: Current every day smoker tobacco type: cigarettes Smoking cigarettes per day: 10 Do You Dip or Chew Tobacco: No Hx Alcohol Use: No Hx Substance Use: Yes substance use type: marijuana Physical Exam Vital Signs Last Vital Signs Temp 36.8 C 12/27/19 21:55 Pulse 74 12/27/19 23:15 Resp 14 12/27/19 23:15 BP 131/83 12/27/19 23:15 Pulse Ox 97 12/27/19 23:15 Testing Laboratory Results 12/27/19 23:01 12/27/19 23:01 Urine Color Yellow 12/27/19 21:15 Urine Appearance Clear (Clear) 12/27/19 21:15 Urine pH 6.5 (4.5-7.5) 12/27/19 21:15 Ur Specific [place] 1.007 (1.000-1.030) 12/27/19 21:15 Urine Protein Negative (Negative) 12/27/19 21:15 Urine Glucose (UA) Negative (Negative) 12/27/19 21:15 Urine Ketones Negative (Negative) 12/27/19 21:15 Urine Nitrite Negative (Negative) 12/27/19 21:15 Ur Leukocyte Esterase Trace (Negative) H 12/27/19 21:15 Urine WBC (Auto) 1-5 /hpf (0-5) 12/27/19 21:15 Urine RBC (Auto) 0-4 /hpf (0-4) 12/27/19 21:15 U Hyaline Cast (Auto) 0 /lpf (0-5) 12/27/19 21:15 U Epithel Cells (Auto) 0-5 /lpf (0-5) 12/27/19 21:15 Urine Bacteria (Auto) Negative (Negative) 12/27/19 21:15
--- NOTE | 2019-12-27 23:48 | History & Physical Report ---
Date of Service December 27, 2019 Assessment & Plan (1) Suicide attempt: Suicide attempt/ingestion of razor blades/visual and auditory hallucinations/personality disorder/impulse control disorder/depression/abdominal pain- Patient was taken to the endoscopy suite by Dr. Matias, but unable to retrieve the razor blades. Plan is to repeat x-ray in the a.m., and Dr. Matias asked that Dr. Cooper to be consulted to see patient in a.m. Admit to medical telemetry. H&H every 6 hours NPO Dilaudid 0.25 mg IV every 3 hours as needed severe pain Consult psychiatry Present on Admission?: Yes (2) Ingestion of foreign body: (3) Abdominal pain, epigastric: (4) Visual hallucination: (5) Auditory hallucination: (6) Personality disorder, unspecified: (7) Impulse control disorder, unspecified: (8) Depression: History of Present Illness Chief Complaint: The patient initially presented to the emergency department for mental health evaluation due to seeing dark figures in his house, and swallowing razor blades. His main complaint is abdominal pain Primary Care Provider: Roscoe Rodriguez The patient is a 44-year-old male with a past medical history including personality disorder, impulse control disorder, and depression. He reports seeing a dark figure and his house that was talking to him, and then became aware that he had swallowed razor blades. X-rays performed in the emergency department did reveal 3 razor blades in the stomach. The patient was taken to the endoscopy suite by Dr. Matias, but was unable to retrieve the razor blades due to a large volume of debris in the stomach. The plan is to admit the patient to the hospital with one-to-one observation, repeat x-ray in the a.m., and consult gastroenterology again in the a.m. for possible EGD at that time. Allergies Allergy/AdvReac Type Severity Reaction Status Date / Time mushroom Allergy Severe Anaphylaxis Verified 12/27/19 22:12 meperidine [From Demerol] Allergy Intermediate Rash Verified 12/27/19 22:12 morphine Allergy Intermediate Rash Verified 12/27/19 22:12 lamotrigine [From Lamictal] AdvReac Unknown Hallucinati Verified 12/27/19 22:13 ng Home Medications Home Medications Medication Instructions Recorded Confirmed Type clonazepam 1 mg PO TID 03/27/19 12/27/19 History clonidine HCl 0.1 mg PO HS 03/27/19 12/27/19 History escitalopram oxalate 20 mg PO DAILY 03/27/19 12/27/19 History perphenazine 12 mg PO DAILY 03/27/19 12/27/19 History Multi Vitamin 1 tab PO DAILY 12/27/19 12/27/19 History gabapentin 600 mg PO TID 12/27/19 12/27/19 History trazodone 50 mg PO HS 12/27/19 12/27/19 History Past Med/Surg History Medical History (Updated 12/28/19 @ 02:00 by Kem Hernandez MD) Depression Depression H/O foreign body ingestion Surgical History History of endoscopy S/P hernia surgery Family History Other Family history non-contributory Social History Smoking Status: Current every day smoker Cigarettes Per Day: 10; Do You Dip or Chew Tobacco: No; Hx Alcohol Use: No Hx Substance Use: Yes Preferred Language: Namibian Communication Ability: Effective Inspection Supervisor Required: No Beliefs That Will Affect Care: None Current Living Situation: Significant Other current occupational status: disabled Feels Safe at Home: Yes Assistive Devices: None Review of Systems Review of Systems: The patient denies chest pain, palpitations, shortness of breath, dyspnea on exertion, cough, lower extremity swelling, sore throat, fevers, chills, sweats, nausea, vomiting, diarrhea, constipation, Blood in urine or stool, dysuria, urinary frequency or urgency, lightheadedness, dizziness, headache, loss of consciousness, rash, abnormal bruising or bleeding, imbalance, focal or generalized weakness, numbness or tingling in arms or legs, generalized arthralgias or myalgias, back or neck pain, or night sweats. The review of systems is otherwise negative other than for that already noted above, and at least 10 systems have been reviewed. Physical Exam Physical Exam: The patient is awake, alert and oriented 3, well developed and well nourished, normocephalic and atraumatic, lying in bed and in no acute distress. HEENT--PERRL, EOMI, mucous membranes and oropharynx normal. Neck--supple. No JVD. No bruits. Thyroid normal, trachea midline, no adenopathy. Heart--normal S1 and S2. No murmurs, rubs or gallops. Lungs--clear bilaterally, no respiratory distress, no accessory muscle use. Abdomen--normal bowel sounds and soft. Epigastric tenderness. Nondistended, no hernias or masses, no organomegaly. Extremities--no cyanosis or clubbing. No edema. Dermatologic--normal skin turgor, normal color, no abnormal lymph nodes, no rash. Neurologic--cranial nerves II through XII grossly intact. Rheumatologic--normal range of motion. Psychiatric--normal affect. Results & Data Results & Data ([facility]) Vital Signs (Past 12 Hours) Vital Signs Temp Pulse Pulse Resp BP BP Pulse Ox 12/27/19 23:15 74 14 131/83 97 12/27/19 21:55 98.2 F 98 H 17 143/89 H 95 Laboratory Results Laboratory Results WBC 7.95 K/uL (4.8-10.8) 12/27/19 23: RBC 4.51 M/uL (4.7-6.1) L 12/27/19 23: Hgb 13.2 g/dL (14.0-18.0) L 12/27/19 23: Hct 39.9 % (42-52) L 12/27/19 23: MCV 88.5 fL (80-100) 12/27/19 23: MCH 29.3 pg (25-34) 12/27/19 23: MCHC 33.1 g/dL (32-36) 12/27/19 23: RDW Std Deviation 45.1 fL (36.4-46.3) 12/27/19 23: RDW Coeff of Tobias 13.8 % (11.5-14.5) 12/27/19 23: Plt Count 110 K/uL (130-400) L 12/27/19 23: MPV 11.2 fL (7.4-10.4) H 12/27/19 23: Immature Gran % (Auto) 0.3 % 12/27/19 23: Neut % (Auto) 60.9 % 12/27/19 23: Lymph % (Auto) 26.4 % 12/27/19 23:01 [place] % (Auto) 8.2 % 12/27/19 23:01 Eos % (Auto) 3.9 % 12/27/19 23: Baso % (Auto) 0.3 % 12/27/19 23:01 Neut # (Auto) 4.85 K/uL (1.4-6.5) 12/27/19 23: Lymph # (Auto) 2.10 K/uL (1.2-3.4) 12/27/19 23: [place] # (Auto) 0.65 K/uL (0.11-0.59) H 12/27/19 23: Eos # (Auto) 0.31 K/uL (0-0.5) 12/27/19 23: Baso # (Auto) 0.02 K/uL (0-0.2) 12/27/19 23: Immature Gran # (Auto) 0.02 K/uL (0.00-0.02) 12/27/19 23: Sodium 141 mmol/L (136-145) 12/27/19 23: Potassium 4.0 mmol/L (3.5-5.1) 12/27/19 23: Chloride 109 mmol/L (98-107) H 12/27/19 23: Carbon Dioxide 27 mmol/L (21-32) 12/27/19 23: Anion Gap 5.0 (3-11) 12/27/19 23: BUN 7 mg/dl (7-18) 12/27/19 23: Creatinine 1.21 mg/dl (0.6-1.4) 12/27/19 23: Est Cr Clr Drug Dosing 88.0 ml/min 12/27/19 23: Est GFR ( Amer) 83.9 12/27/19 23: Est GFR (Non-Af Amer) 72.4 12/27/19 23: BUN/Creatinine Ratio 5.4 (10-20) L 12/27/19 23: Glucose 109 mg/dl (70-99) H 12/27/19 23: Calcium 8.8 mg/dl (8.5-10.1) 12/27/19 23:01 Total Bilirubin 0.2 mg/dl (0.2-1) 12/27/19 23:01 AST 33 U/L (15-37) 12/27/19 23:01 ALT 41 U/L (12-78) 12/27/19 23:01 Alkaline Phosphatase 117 U/L (45-117) 12/27/19 23:01 Total Protein 7.2 gm/dl (6.4-8.2) 12/27/19 23:01 Albumin 3.4 gm/dl (3.4-5.0) 12/27/19 23:01 Globulin 3.8 gm/dl (2.5-4.0) 12/27/19 23:01 Albumin/Globulin Ratio 0.9 (0.9-2) 12/27/19 23: TSH 2.100 uIu/ml (0.300-4.500) 12/27/19 23:01 Urine Color Yellow 12/27/19 21:15 Urine Appearance Clear (Clear) 12/27/19 21:15 Urine pH 6.5 (4.5-7.5) 12/27/19 21:15 Ur Specific [place] 1.007 (1.000-1.030) 12/27/19 21:15 Urine Protein Negative (Negative) 12/27/19 21:15 Urine Glucose (UA) Negative (Negative) 12/27/19 21:15 Urine Ketones Negative (Negative) 12/27/19 21:15 Urine Blood Negative (Negative) 12/27/19 21:15 Urine Nitrite Negative (Negative) 12/27/19 21:15 Urine Bilirubin Negative (Negative) 12/27/19 21:15 Urine Urobilinogen Negative (Negative) 12/27/19 21:15 Ur Leukocyte Esterase Trace (Negative) H 12/27/19 21:15 Urine WBC (Auto) 1-5 /hpf (0-5) 12/27/19 21:15 Urine RBC (Auto) 0-4 /hpf (0-4) 12/27/19 21:15 U Hyaline Cast (Auto) 0 /lpf (0-5) 12/27/19 21:15 U Epithel Cells (Auto) 0-5 /lpf (0-5) 12/27/19 21:15 Urine Bacteria (Auto) Negative (Negative) 12/27/19 21:15 Salicylates 3.7 mg/dl (2.8-20) 12/27/19 23:01 Urine Opiates Screen Neg (Neg) 12/27/19 21:15 Ur Methadone, Qual Neg (Neg) 12/27/19 21:15 Acetaminophen < 2 ug/ml (10-30) L 12/27/19 23:01 Urine Barbiturates Neg (Neg) 12/27/19 21:15 Ur Phencyclidine (PCP) Neg (Neg) 12/27/19 21:15 U Amphetamin/Meth Scrn Neg (Neg) 12/27/19 21:15 MDMA (Ecstasy) Screen Neg (Neg) 12/27/19 21:15 U Benzodiazepines Scrn Neg (Neg) 12/27/19 21:15 Ur Cocaine Metabolite Neg (Neg) 12/27/19 21:15 U Marijuana (THC) Screen Pos (Neg) H 12/27/19 21:15 Ethyl Alcohol mg/dL < 3.0 mg/dl (0-3) 12/27/19 23:01 COVID-19 Eval Order Covid19 IDNow [facility] 12/27/19 23:02 SARS-CoV-2, RNA, NAAT NEGATIVE (NEGATIVE) 12/27/19 23:02 Code Status & VTE Plan Code Status Full code VTE Prophylaxis Plan VTE Prophylaxis will be ordered: Yes PG Care Time/CCT Total # of Minutes Spent Total Time Spent with Patient: Total time spent is greater than 50% in coordination of care (as documented) at patient's floor/unit and/or counseling patient: Coding Level of Care Code 21086 Initial Inpt Care Lvl 3 Diagnoses Suicide attempt T14.91XA Ingestion of foreign body T18.9XXA Encounter type: initial encounter Abdominal pain, epigastric R10.13 Visual hallucination R44.1 Auditory hallucination R44.0 Personality disorder, unspecified F60.9 Impulse control disorder, unspecified F63.9 Depression F32.9 (1) Ingestion of foreign body Encounter type: initial encounter Qualified Code(s): T18.9XXA - Foreign body of alimentary tract, part unspecified, initial encounter
[2019-12-28 00:02] LABS: Acetaminophen < 2 ug/ml (10-30); Salicylate 3.7 mg/dl (2.8-20)
--- NOTE | 2019-12-28 00:35 | Post Operative Brief Note ---
Immediate Post Op Note v1 Date of Surgery December 28, 2019 Pre & Post Diagnosis Operation Date: 12/28/19 00:30 Pre-Op Diagnosis: Foreign body Post-Op Diagnosis: Foreign body unable to be found due to retained food in the stomach I identified the patient and participated in the time-out.: Yes Procedure Operation Date: 12/28/19 00:30 Actual Procedures p Esophagogastroduodenoscopy - Timmy Matias DO Surgeon Timmy Matias DO Home Mission Worker none Estimated Blood Loss 0 Findings Consistent with Post-Op Diagnosis
--- NOTE | 2019-12-28 00:35 | GI REPORT ---
Patient Name: Rylan Romero Procedure Date: 12/27/2019 11:51 PM Date of : 1975 Admit Type: Emergency Department Age: 44 Gender: Male Attending MD: Timmy Matias DO Procedure: Upper GI endoscopy Providers: Timmy Matias DO Referring MD: Deepika Rayo M.d. Indications: Foreign body in the stomach Medicines: General Anesthesia Complications: No immediate complications. Estimated blood loss: Minimal. Estimated Blood Loss: Estimated blood loss was minimal. Procedure: Pre-Anesthesia Assessment: - Prior to the procedure, a History and Physical was performed, and patient medications, allergies and sensitivities were reviewed. The patient's tolerance of previous anesthesia was reviewed. - The risks and benefits of the procedure and the sedation options and risks were discussed with the patient. All questions were answered and informed consent was obtained. - Patient identification and proposed procedure were verified prior to the procedure by the physician, the nurse and the lube man. The procedure was verified in the procedure room. - Pre-procedure physical examination revealed no contraindications to sedation. - ASA Grade Assessment: II - A patient with mild systemic disease. - After reviewing the risks and benefits, the patient was deemed in satisfactory condition to undergo the procedure. - The anesthesia plan was to use general anesthesia. - Immediately prior to administration of medications, the patient was re-assessed for adequacy to receive sedatives. - The heart rate, respiratory rate, oxygen saturations, blood pressure, adequacy of pulmonary ventilation, and response to care were monitored throughout the procedure. - The physical status of the patient was re-assessed after the procedure. After obtaining informed consent, the endoscope was passed under direct vision. Throughout the procedure, the patient's blood pressure, pulse, and oxygen saturations were monitored continuously. The Endoscope was introduced through the mouth, and advanced to the third part of duodenum. The upper GI endoscopy was accomplished without difficulty. The patient tolerated the procedure well. Findings: The examined esophagus was normal. A large amount of food (residue) was found in the gastric fundus and in the gastric antrum. Despite attempts at material removal with a Endoscopic Net and suction we could not visualize the suspected foreign bodies. A small amont of ood (residue) was found in the duodenal bulb and in the second portion of the duodenum. Impression: - Normal esophagus. - A large amount of food (residue) in the stomach. This precluded identification of the swallowed foreign bodies. - Retained food in the duodenum. - No specimens collected. Recommendation: - Repeat upper endoscopy tomorrow because the preparation was poor. - Would suggest a KUB this morning with a repeat attempt at foreign body retrieval if still present in the stomach. Timmy Matias D.O. Timmy Matias, 12/28/2019 12:34:33 AM This report has been signed electronically. Note Initiated On: 12/27/2019 11:51 PM Number of Addenda: 0 I attest to the content of the Intraoperative Record and orders documented therein, exceptions below {[id number]}
--- NOTE | 2019-12-28 00:41 | Communication Note ---
Date of Service: December 28, 2019 Upper endoscopy was attempted this evening. Unfortunately there was a large amount of food within the gastric fundus and antrum. We attempted to remove some of the debris and lavage out been able to identify any of the swallowed razor blades. Recommendations N.p.o. Repeat abdominal x-ray later this morning, if the foreign bodies are still within the stomach a repeat endoscopy could be considered as the food should have passed through the stomach at that point Consider a general surgery consultation, at the present time urgent rotation is probably not necessary, should the patient develop signs of perforation they would certainly need to be involved with his care
[2019-12-28] MEDS ORDERED: fentaNYL citrate 100 MCG/2 ML VIAL IV PRN (00:57)
[2019-12-28] MEDS ORDERED: ATROPINE SULFATE 0.1 MG/ML 10ML SYR IV PRN ×3 (00:57→13:59)
[2019-12-28] MEDS ORDERED: ONDANSETRON INJ 2 MG/ML 2 ML VIAL IV PRN ×4 (00:57→13:59)
[2019-12-28] MEDS ORDERED: ePHEDrine sulfate 50 MG/ML AMP IV PRN ×3 (00:57→13:59)
--- NOTE | 2019-12-28 00:57 | Anesthesiology Progress Note ---
Date of Service December 28, 2019 Anesthesia Post Procedure Vital Signs Vital Signs: Temp Pulse Pulse Resp BP BP Pulse Ox 12/27/19 23:15 74 14 131/83 97 12/27/19 21:55 36.8 C 98 H 17 143/89 H 95 Pain Intensity Abdomen: Pain Intensity: 10 Transfer of Care Handoff Completed per policy Notes Mental Status: alert / awake / arousable and participated in evaluation Patient Amnestic to Procedure: Yes Nausea / Vomiting: adequately controlled Pain: adequately controlled Airway Patency, RR, SpO2: stable & adequate BP & HR: stable & adequate Hydration State: stable & adequate Anesthetic Complications: no major complications apparent and Pt Satisfied with anesthetic care
[2019-12-28] MEDS ORDERED: fentaNYL citrate 100 MCG/2 ML VIAL ONE ×3 (01:04→13:59)
[2019-12-28] MEDS: fentaNYL citrate 100 MCG/2 ML VIAL IV PRN ×5 (01:06→14:43)
--- NOTE | 2019-12-28 01:43 | Emergency Department Note ---
History of Present Illness General Chief complaint: Mental Health Evaluation Stated complaint: SWALLOWED RAZOR BLADES, SEEING THINGS Time Seen by Provider: 12/27/19 22:10 History of Present Illness Provider complaint: Swallowed razor blades hallucinating Onset (ago): hour(s) 1 Location: abdomen Severity: moderate Maximum Pain Intensity: 8 Current Pain Intensity: 8 Associated symptoms: no chest pain, no fever/chills and no nausea/vomiting 44-year-old male presents emergency department with auditory hallucinations. He states 1 hour ago he heard a voice telling him to kill himself. He states when the voice told him that, he went into his bathroom and broke open a mock 3 razor and swallowed 3 of the razor blades. He did not swallow any of the plastic material only the blades. He is now reporting abdominal pain. Home Medications Home Medications Medication Instructions Recorded Confirmed Type clonazepam 1 mg PO TID 03/27/19 12/27/19 History clonidine HCl 0.1 mg PO HS 03/27/19 12/27/19 History escitalopram oxalate 20 mg PO DAILY 03/27/19 12/27/19 History perphenazine 12 mg PO DAILY 03/27/19 12/27/19 History Multi Vitamin 1 tab PO DAILY 12/27/19 12/27/19 History gabapentin 600 mg PO TID 12/27/19 12/27/19 History trazodone 50 mg PO HS 12/27/19 12/27/19 History Allergies Allergy/AdvReac Type Severity Reaction Status Date / Time mushroom Allergy Severe Anaphylaxis Verified 12/27/19 22:12 meperidine [From Demerol] Allergy Intermediate Rash Verified 12/27/19 22:12 morphine Allergy Intermediate Rash Verified 12/27/19 22:12 lamotrigine [From Lamictal] AdvReac Unknown Hallucinati Verified 12/27/19 22:13 ng Past Med/Surg History Medical History (Updated 12/28/19 @ 01:44 by Audi Lacey) Depression Depression H/O foreign body ingestion Surgical History History of endoscopy S/P hernia surgery Family History Other Family history non-contributory Social History (Reviewed 12/28/19 @ 01:39 by Audi Marquez Smoking Status: Current every day smoker Cigarettes Per Day: 10; Do You Dip or Chew Tobacco: No; Hx Alcohol Use: No Hx Substance Use: Yes Preferred Language: Romanian Communication Ability: Effective Insurance Claims Clerk Required: No Beliefs That Will Affect Care: None Current Living Situation: Significant Other current occupational status: disabled Feels Safe at Home: Yes Assistive Devices: None Review of Systems A total of 10 systems reviewed and were otherwise negative Physical Exam Vital Signs Vital Signs - 24 hr 12/27/19 21:55 12/27/19 23:15 12/28/19 00:40 Temperature 36.8 C 36.5 C Temperature Source Oral Oral Pulse Rate 98 H Pulse Rate [Finger] 74 72 Pulse Rhythm Regular Pulse Strength Normal Respiratory Rate 17 14 20 Respiratory Effort / Characteristics Non-Labored Spontaneous Respiratory Depth Normal Blood Pressure 143/89 H Blood Pressure [Left Arm] 131/83 118/82 Blood Pressure Mean 107 Blood Pressure Mean [Left Arm] 99 94 Blood Pressure Position Sitting Pulse Oximetry 95 97 96 Oxygen Delivery Method Room Air Room Air Oxymask Oxygen Flow Rate 10 Sepsis Recent Fever Within 48 Hours No Sepsis New/Unexplained Change in Mental Status No Sepsis Action Taken by Nursing No Action Required 12/28/19 00:50 12/28/19 01:00 12/28/19 01:10 Temperature Temperature Source Pulse Rate Pulse Rate [Finger] 73 73 68 Pulse Rhythm Pulse Strength Respiratory Rate 16 18 16 Respiratory Effort / Characteristics Respiratory Depth Blood Pressure Blood Pressure [Left Arm] 120/78 118/87 112/86 Blood Pressure Mean Blood Pressure Mean [Left Arm] 92 97 94 Blood Pressure Position Pulse Oximetry 96 100 93 Oxygen Delivery Method Oxymask Oxymask Room Air Oxygen Flow Rate 5 3 Sepsis Recent Fever Within 48 Hours Sepsis New/Unexplained Change in Mental Status Sepsis Action Taken by Nursing 12/28/19 01:20 12/28/19 01:30 Temperature Temperature Source Pulse Rate Pulse Rate [Finger] 67 64 Pulse Rhythm Pulse Strength Respiratory Rate 18 16 Respiratory Effort / Characteristics Respiratory Depth Blood Pressure Blood Pressure [Left Arm] 117/78 116/76 Blood Pressure Mean Blood Pressure Mean [Left Arm] 91 89 Blood Pressure Position Pulse Oximetry 93 93 Oxygen Delivery Method Room Air Room Air Oxygen Flow Rate Sepsis Recent Fever Within 48 Hours Sepsis New/Unexplained Change in Mental Status Sepsis Action Taken by Nursing Physical Exam HENT: Exam performed. - Head: Normocephalic and atraumatic. - Right Ear: External ear normal. No mastoid tenderness. - Left Ear: External ear normal. No mastoid tenderness. - Mouth/Throat: The oropharynx is clear and moist. No trismus in the jaw. No dental abscesses or uvula swelling. No oropharyngeal exudate or tonsillar abscesses. EYES: Conjunctivae and EOM are normal. Pupils are equal, round, and reactive to light. Right eye exhibits no discharge. Left eye exhibits no discharge. No scleral icterus. NECK: Normal range of motion. Neck supple. No JVD present. No spinous process tenderness present. No carotid bruit present. No rigidity. No tracheal deviation and normal range of motion present. No Brudzinski's sign and no Kernig's sign noted. CV: Normal rate, regular rhythm, normal heart sounds and intact distal pulses. There is no peripheral edema. Palpable radial pulses bue. PULM/CHEST: Effort normal and breath sounds normal. No respiratory distress. No stridor. He has no wheezes. He has no rales. - Chest Wall: He exhibits no tenderness. ABD: Large scar over the patient's anterior abdominal wall. The abdomen is soft. Bowel sounds are normal. He has no distension. No mass is present. There is tenderness in the epigastric area. There is no rebound, no guarding, no Rodrigues's sign and no tenderness at McBurney's point. Rovsig negative. MUSC/SKEL: Normal range of motion. There is no peripheral edema, tenderness or deformity. LYMPH: No cervical adenopathy. NEURO: He is alert and oriented to person, place, and time. He has normal strength. No cranial nerve deficit or sensory deficit. Coordination and gait normal. GCS eye subscore is 4. GCS verbal subscore is 5. GCS motor subscore is 6. Cerebellar tests wnl. SKIN: Skin is warm and dry. He is not diaphoretic. PSYCH: Patient is bizarre affect and is having auditory hallucinations. Positive suicidal ideation. Course Course 2209: The patient was evaluated in room A5. A complete history and physical exam was performed. 2300: Vital signs stable. Imaging does show what appears to be 3 foreign bodies in the patient's stomach consistent with the patient's HPI of swallowing razor blades. Patient does have a history of swallowing foreign bodies including razor blades in the past that have required removal by endoscopy. Discussed the case with on-call GI Dr. Matias who states to admit to medicine and have a rapid Covid done and he will come in and scope the patient. Administered Medications Fentanyl Citrate (Fentanyl Citrate 100 Mcg/2 Ml Vial) 25 mcg IV Q5M PRN PRN Reason: PACU Use Only-Pain Stop: 01/11/20 01:00 Last Admin: 12/28/19 01:21 Dose: 25 mcg Documented by: [id number] Admin: 12/28/19 01:12 Dose: 25 mcg Documented by: [id number] Admin: 12/28/19 01:06 Dose: 25 mcg Documented by: [id number] Discontinued Medications Hydromorphone HCl (Hydromorphone Inj 1 Mg/Ml Syringe) 1 mg IV NOW STA Stop: 12/27/19 22:21 Last Admin: 12/27/19 23:15 Dose: 1 mg Documented by: [id number] Medical Decision Making Laboratory Data Result diagrams: 12/27/19 23:01 12/27/19 23:01 Lab Results 12/27/19 12/27/19 12/27/19 Range/Units 21:15 21:15 23:01 WBC 7.95 (4.8-10.8) K/uL RBC 4.51 L (4.7-6.1) M/uL Hgb 13.2 L (14.0-18.0) g/dL Hct 39.9 L (42-52) % MCV 88.5 (80-100) fL MCH 29.3 (25-34) pg MCHC 33.1 (32-36) g/dL RDW Std Deviation 45.1 (36.4-46.3) fL RDW Coeff of Tobias 13.8 (11.5-14.5) % Plt Count 110 L (130-400) K/uL MPV 11.2 H (7.4-10.4) fL Immature Gran % (Auto) 0.3 % Neut % (Auto) 60.9 % Lymph % (Auto) 26.4 % [place] % (Auto) 8.2 % Eos % (Auto) 3.9 % Baso % (Auto) 0.3 % Neut # (Auto) 4.85 (1.4-6.5) K/uL Lymph # (Auto) 2.10 (1.2-3.4) K/uL [place] # (Auto) 0.65 H (0.11-0.59) K/uL Eos # (Auto) 0.31 (0-0.5) K/uL Baso # (Auto) 0.02 (0-0.2) K/uL Immature Gran # (Auto) 0.02 (0.00-0.02) K/uL Sodium (136-145) mmol/L Potassium (3.5-5.1) mmol/L Chloride (98-107) mmol/L Carbon Dioxide (21-32) mmol/L Anion Gap (3-11) BUN (7-18) mg/dl Creatinine (0.6-1.4) mg/dl Est Cr Clr Drug Dosing ml/min Est GFR ( Amer) Est GFR (Non-Af Amer) BUN/Creatinine Ratio (10-20) Glucose (70-99) mg/dl Calcium (8.5-10.1) mg/dl Total Bilirubin (0.2-1) mg/dl AST (15-37) U/L ALT (12-78) U/L Alkaline Phosphatase (45-117) U/L Total Protein (6.4-8.2) gm/dl Albumin (3.4-5.0) gm/dl Globulin (2.5-4.0) gm/dl Albumin/Globulin Ratio (0.9-2) TSH (0.300-4.500) uIu/ml Urine Color Yellow Urine Appearance Clear (Clear) Urine pH 6.5 (4.5-7.5) Ur Specific [place] 1.007 (1.000-1.030) Urine Protein Negative (Negative) Urine Glucose (UA) Negative (Negative) Urine Ketones Negative (Negative) Urine Blood Negative (Negative) Urine Nitrite Negative (Negative) Urine Bilirubin Negative (Negative) Urine Urobilinogen Negative (Negative) Ur Leukocyte Esterase Trace H (Negative) Urine WBC (Auto) 1-5 (0-5) /hpf Urine RBC (Auto) 0-4 (0-4) /hpf U Hyaline Cast (Auto) 0 (0-5) /lpf U Epithel Cells (Auto) 0-5 (0-5) /lpf Urine Bacteria (Auto) Negative (Negative) Salicylates (2.8-20) mg/dl Urine Opiates Screen Neg (Neg) Ur Methadone, Qual Neg (Neg) Acetaminophen (10-30) ug/ml Urine Barbiturates Neg (Neg) Ur Phencyclidine (PCP) Neg (Neg) U Amphetamin/Meth Scrn Neg (Neg) MDMA (Ecstasy) Screen Neg (Neg) U Benzodiazepines Scrn Neg (Neg) Ur Cocaine Metabolite Neg (Neg) U Marijuana (THC) Screen Pos H (Neg) Ethyl Alcohol mg/dL (0-3) mg/dl COVID-19 Eval Order SARS-CoV-2, RNA, NAAT (NEGATIVE) 12/27/19 12/27/19 12/27/19 Range/Units 23:01 23:01 23:01 WBC (4.8-10.8) K/uL RBC (4.7-6.1) M/uL Hgb (14.0-18.0) g/dL Hct (42-52) % MCV (80-100) fL MCH (25-34) pg MCHC (32-36) g/dL RDW Std Deviation (36.4-46.3) fL RDW Coeff of Tobias (11.5-14.5) % Plt Count (130-400) K/uL MPV (7.4-10.4) fL Immature Gran % (Auto) % Neut % (Auto) % Lymph % (Auto) % [place] % (Auto) % Eos % (Auto) % Baso % (Auto) % Neut # (Auto) (1.4-6.5) K/uL Lymph # (Auto) (1.2-3.4) K/uL [place] # (Auto) (0.11-0.59) K/uL Eos # (Auto) (0-0.5) K/uL Baso # (Auto) (0-0.2) K/uL Immature Gran # (Auto) (0.00-0.02) K/uL Sodium 141 (136-145) mmol/L Potassium 4.0 (3.5-5.1) mmol/L Chloride 109 H (98-107) mmol/L Carbon Dioxide 27 (21-32) mmol/L Anion Gap 5.0 (3-11) BUN 7 (7-18) mg/dl Creatinine 1.21 (0.6-1.4) mg/dl Est Cr Clr Drug Dosing 88.0 ml/min Est GFR ( Amer) 83.9 Est GFR (Non-Af Amer) 72.4 BUN/Creatinine Ratio 5.4 L (10-20) Glucose 109 H (70-99) mg/dl Calcium 8.8 (8.5-10.1) mg/dl Total Bilirubin 0.2 (0.2-1) mg/dl AST 33 (15-37) U/L ALT 41 (12-78) U/L Alkaline Phosphatase 117 (45-117) U/L Total Protein 7.2 (6.4-8.2) gm/dl Albumin 3.4 (3.4-5.0) gm/dl Globulin 3.8 (2.5-4.0) gm/dl Albumin/Globulin Ratio 0.9 (0.9-2) TSH 2.100 (0.300-4.500) uIu/ml Urine Color Urine Appearance (Clear) Urine pH (4.5-7.5) Ur Specific [place] (1.000-1.030) Urine Protein (Negative) Urine Glucose (UA) (Negative) Urine Ketones (Negative) Urine Blood (Negative) Urine Nitrite (Negative) Urine Bilirubin (Negative) Urine Urobilinogen (Negative) Ur Leukocyte Esterase (Negative) Urine WBC (Auto) (0-5) /hpf Urine RBC (Auto) (0-4) /hpf U Hyaline Cast (Auto) (0-5) /lpf U Epithel Cells (Auto) (0-5) /lpf Urine Bacteria (Auto) (Negative) Salicylates 3.7 (2.8-20) mg/dl Urine Opiates Screen (Neg) Ur Methadone, Qual (Neg) Acetaminophen < 2 L (10-30) ug/ml Urine Barbiturates (Neg) Ur Phencyclidine (PCP) (Neg) U Amphetamin/Meth Scrn (Neg) MDMA (Ecstasy) Screen (Neg) U Benzodiazepines Scrn (Neg) Ur Cocaine Metabolite (Neg) U Marijuana (THC) Screen (Neg) Ethyl Alcohol mg/dL < 3.0 (0-3) mg/dl COVID-19 Eval Order SARS-CoV-2, RNA, NAAT (NEGATIVE) 12/27/19 12/27/19 Range/Units 23:02 23:02 WBC (4.8-10.8) K/uL RBC (4.7-6.1) M/uL Hgb (14.0-18.0) g/dL Hct (42-52) % MCV (80-100) fL MCH (25-34) pg MCHC (32-36) g/dL RDW Std Deviation (36.4-46.3) fL RDW Coeff of Tobias (11.5-14.5) % Plt Count (130-400) K/uL MPV (7.4-10.4) fL Immature Gran % (Auto) % Neut % (Auto) % Lymph % (Auto) % [place] % (Auto) % Eos % (Auto) % Baso % (Auto) % Neut # (Auto) (1.4-6.5) K/uL Lymph # (Auto) (1.2-3.4) K/uL [place] # (Auto) (0.11-0.59) K/uL Eos # (Auto) (0-0.5) K/uL Baso # (Auto) (0-0.2) K/uL Immature Gran # (Auto) (0.00-0.02) K/uL Sodium (136-145) mmol/L Potassium (3.5-5.1) mmol/L Chloride (98-107) mmol/L Carbon Dioxide (21-32) mmol/L Anion Gap (3-11) BUN (7-18) mg/dl Creatinine (0.6-1.4) mg/dl Est Cr Clr Drug Dosing ml/min Est GFR ( Amer) Est GFR (Non-Af Amer) BUN/Creatinine Ratio (10-20) Glucose (70-99) mg/dl Calcium (8.5-10.1) mg/dl Total Bilirubin (0.2-1) mg/dl AST (15-37) U/L ALT (12-78) U/L Alkaline Phosphatase (45-117) U/L Total Protein (6.4-8.2) gm/dl Albumin (3.4-5.0) gm/dl Globulin (2.5-4.0) gm/dl Albumin/Globulin Ratio (0.9-2) TSH (0.300-4.500) uIu/ml Urine Color Urine Appearance (Clear) Urine pH (4.5-7.5) Ur Specific [place] (1.000-1.030) Urine Protein (Negative) Urine Glucose (UA) (Negative) Urine Ketones (Negative) Urine Blood (Negative) Urine Nitrite (Negative) Urine Bilirubin (Negative) Urine Urobilinogen (Negative) Ur Leukocyte Esterase (Negative) Urine WBC (Auto) (0-5) /hpf Urine RBC (Auto) (0-4) /hpf U Hyaline Cast (Auto) (0-5) /lpf U Epithel Cells (Auto) (0-5) /lpf Urine Bacteria (Auto) (Negative) Salicylates (2.8-20) mg/dl Urine Opiates Screen (Neg) Ur Methadone, Qual (Neg) Acetaminophen (10-30) ug/ml Urine Barbiturates (Neg) Ur Phencyclidine (PCP) (Neg) U Amphetamin/Meth Scrn (Neg) MDMA (Ecstasy) Screen (Neg) U Benzodiazepines Scrn (Neg) Ur Cocaine Metabolite (Neg) U Marijuana (THC) Screen (Neg) Ethyl Alcohol mg/dL (0-3) mg/dl COVID-19 Eval Order Covid19 [facility] SARS-CoV-2, RNA, NAAT NEGATIVE (NEGATIVE) Imaging Data My Impression: Acute abdominal series: 3 foreign bodies and appears to be a stomach. No air-fluid levels. Chest x-ray negative. Airway clear. No pneumothorax. No consolidation. No free air under the diaphragm. No fractures of the skeletal structures. Soft tissue neck x-ray: No foreign body MDM Narrative 2210: The patient was evaluated in room A5. A complete history and physical exam was performed. 2300: Vital signs stable. Imaging does show what appears to be 3 foreign bodies in the patient's stomach consistent with the patient's HPI of swallowing razor blades. Patient does have a history of swallowing foreign bodies including razor blades in the past that have required removal by endoscopy. Discussed the case with on-call GI Dr. Matias who states to admit to medicine and have a rapid Covid done and he will come in and scope the patient. Impression & Plan Ingestion of foreign body, Suicide attempt, Auditory hallucination Discharge Plan Visit Data Chief Complaint: Mental Health Evaluation Stated Complaint: SWALLOWED RAZOR BLADES, SEEING THINGS ED Provider: Audi Lacey Discharge Problem: Ingestion of foreign body, Suicide attempt, Auditory hallucination Patient Disposition: Still a Patient Discharge Instructions Interventions: ED Discharge Assessment Last Done: 12/27/19 23:44 Discharge Problem: Ingestion of foreign body Qualifiers: Encounter type: initial encounter Qualified Code(s): T18.9XXA - Foreign body of alimentary tract, part unspecified, initial encounter
[2019-12-28] MEDS ORDERED: HYDROmorphone INJ 0.5 MG/0.5 ML SYR ONE (02:18)
[2019-12-28] MEDS ORDERED: INFLUENZA ADMINISTRATION CHARGE ONE (02:36)
[2019-12-28] MEDS ORDERED: INFLUENZA VIRUS QUAD VACCINE 0.5 ML SYR IM ONE (02:36)
[2019-12-28] MEDS: NSS + 20MEQ KCL 20 MEQ/1,000 ML BAG IV SCH ×2 (04:32→15:18)
[2019-12-28 05:03] LABS: Hematocrit (blood only) 43.9 % (42-52); Hemoglobin 14.4 g/dL (14.0-18.0)
[2019-12-28] MEDS: HYDROmorphone INJ 0.5 MG/0.5 ML SYR IV PRN ×3 (05:09→11:11)
--- NOTE | 2019-12-28 06:08 | Surgery Consultation ---
Date of Consultation December 28, 2019 Assessment & Plan (1) Ingestion of foreign body: Patient with ingestion of foreign body which are razor blades from a cartridge Patient does not have significant abdominal signs of perforation at the present time Plan is to repeat his endoscopy These would be difficult to localize intraoperatively-we may consider monitoring the patient's progress CT scan and intraoperative endoscopy could help if we absolutely have to operate I did tell the patient it would require a significant operation and he may require a stoma Follow for now History of Present Illness Attending Physician: Kem Hernandez MD History of Present Illness Asked to see patient with a history of ingestion of razor blades from a razor blade cartridge Dr. Matias attempted EGD but could not localize the razor blades because of too much debris in the stomach Currently the patient does say he has some mid abdominal pain He is in no distress Plan is to repeat the EGD sometime in the next 24 to 48 hours Patient apparently does have some mental health issues Allergies Allergy/AdvReac Type Severity Reaction Status Date / Time mushroom Allergy Severe Anaphylaxis Verified 12/27/19 22:12 meperidine [From Demerol] Allergy Intermediate Rash Verified 12/27/19 22:12 morphine Allergy Intermediate Rash Verified 12/27/19 22:12 lamotrigine [From Lamictal] AdvReac Unknown Hallucinati Verified 12/27/19 22:13 ng Home Medications Home Medications Medication Instructions Recorded Confirmed Type clonazepam 1 mg PO TID 03/27/19 12/27/19 History clonidine HCl 0.1 mg PO HS 03/27/19 12/27/19 History escitalopram oxalate 20 mg PO DAILY 03/27/19 12/27/19 History perphenazine 12 mg PO DAILY 03/27/19 12/27/19 History Multi Vitamin 1 tab PO DAILY 12/27/19 12/27/19 History gabapentin 600 mg PO TID 12/27/19 12/27/19 History trazodone 50 mg PO HS 12/27/19 12/27/19 History Patient History Medical History (Updated 12/28/19 @ 02:00 by Kem Hernandez MD) Depression Depression H/O foreign body ingestion Surgical History History of endoscopy S/P hernia surgery Family History Other Family history non-contributory Social History Smoking Status: Current every day smoker Cigarettes Per Day: 10; Do You Dip or Chew Tobacco: No; Hx Alcohol Use: No Hx Substance Use: Yes Preferred Language: Burkinan Communication Ability: Effective 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 Beliefs That Will Affect Care: None Current Living Situation: Significant Other current occupational status: disabled Other Information That Helps Us Care for You: No Feels Safe at Home: Yes Safety Concerns: Feels Safe At This Time Assistive Devices: None Review of Systems Review of Systems: All systems reviewed & are unremarkable except as noted in HPI & below Physical Exam Physical Exam: Patient's vital signs are stable He is in no distress He appears to be comfortable in his bed Constitutional: well nourished; no acute distress Eyes: + anicteric sclerae Respiratory: normal respiratory effort; no respiratory distress Cardiovascular: Rate/Rhythm: regular rate Gastrointestinal (Abdomen): His abdomen is flat and soft and he has minimal tenderness with no peritonitis Skin: no rashes, warm and dry Neurologic: awake Psychiatric: Orientation: alert Results & Data ([facility]) Vital Signs (Past 12 Hours) Vital Signs Temp Pulse Pulse Resp BP BP Pulse Ox 12/28/19 03:48 36.7 C 64 18 120/79 92 12/28/19 02:29 67 16 118/75 95 12/28/19 02:15 69 16 117/75 99 12/28/19 02:00 66 16 118/72 95 12/28/19 01:45 36.6 C 67 18 120/76 94 12/28/19 01:44 62 16 114/73 95 12/28/19 01:30 64 16 116/76 93 12/28/19 01:20 67 18 117/78 93 12/28/19 01:10 68 16 112/86 93 12/28/19 01:00 73 18 118/87 100 12/28/19 00:50 73 16 120/78 96 12/28/19 00:40 36.5 C 72 20 118/82 96 12/27/19 23:15 74 14 131/83 97 12/27/19 21:55 36.8 C 98 H 17 143/89 H 95 I did review his KUB PG Care Time/CCT Total # of Minutes Spent Total Time Spent with Patient: Total time spent is greater than 50% in coordination of care (as documented) at patient's floor/unit and/or counseling patient: Coding Level of Care Code 24515 Inpt Consult Level 4 Diagnoses Ingestion of foreign body T18.9XXA Encounter type: initial encounter (1) Ingestion of foreign body Encounter type: initial encounter Qualified Code(s): T18.9XXA - Foreign body of alimentary tract, part unspecified, initial encounter
--- NOTE | 2019-12-28 06:35 | XRay Report ---
PA CHEST RADIOGRAPH AND UPRIGHT AND SUPINE AP RADIOGRAPHS OF THE ABDOMEN CLINICAL HISTORY: Evaluate for foreign body. COMPARISON STUDY: KUB April 01, 2019. FINDINGS: Lung volumes are normal. Lungs are clear. There is no pneumothorax or pleural effusion. Ca rdiac size is normal. Mediastinal contours are normal. There is no free air. There is no evidence for a bowel obstruction. Note is made of 3 metallic foreign bodies likely within the stomach. A few tiny radiodensities project over the cecum. IMPRESSION: 1. 3 metallic foreign body suggestive of razor blades within the stomach. 2. No free air. No bowel obstruction. 3. No acute cardiopulmonary findings. ACT 112: Negative or not required by law. Electronically signed by: Trever Christianson M.D. 12/28/2019 6:34 AM
--- NOTE | 2019-12-28 06:36 | XRay Report ---
XR soft tissue neck CLINICAL HISTORY: ro FB COMPARISON STUDY: No previous studies for comparison. FINDINGS: No radiopaque foreign body within neck is noted. Note is made of anterior osteophytosis at C6-C7. Prevertebral soft tissues are unremarkable. There is no cervical spine fracture. IMPRESSION: No radiopaque foreign body within the neck. ACT 112: Negative or not required by law. Electronically signed by: Trever Christianson M.D. 12/28/2019 6:34 AM
--- NOTE | 2019-12-28 07:55 | Hospitalist Progress Note ---
Date of Service December 28, 2019 Assessment & Plan (1) Ingestion of foreign body: Patient is a 44 year old male with PMHx personality disorder, impulse control disorder, depression, visual and auditory hallucinations who presented initially after a suicide attempt secondary to swallowing razor blades. Suicide Attempt secondary to Foreign Body Ingestion -Per chart review patient had noted auditory and visual hallucinations that instructed him to swallow razor blades. -In the ED XR's revealed 3 radiopaque foreign bodies consistent with razor blades. -Patient underwent EGD with Dr. Matias overnight, but was unable to remove the razor blades secondary to significant portion of food debris. -General Surgery consulted, no plans for surgical operations at this time as patient has no signs of perforation presently -Would recommend CT scan prior if further localization needed. -Repeat XR this AM showed that the foreign bodies/razor blades were still present in the gastric region. -GI Dr. Man reconsulted, aware of case -Plans for EGD later this evening in attempt to remove the razor blades. -Psychiatry consulted, appreciate recommendations once patient is medically cleared -Dilaudid 1mg q2h PRN for pain -Of note, patients tox screen was positive for THC on admission. -Serial abdominal exams to screen for perforation. -H&H q6h to monitor for perforation and bleed. Depression -Continue patients home Lexapro 20mg -Continue Klonopin 1mg TID -Continue Catapres 0.1mg HS -Continue Neurontin 600mg TID -Continue Trazodone 50mg HS Dispo: PCU FEN: NPO, NSS +20meq KCl @100ml/hr DVT: Low Risk Code: Full Admission and Anticipated Discharge Date Admission Date: December 27, 2019 Supervising Physician Co-Signing Physician Notes I personally examined the patient and verified all barajas points of history and exam, discussed case, and agree with decision making with Dr Olea. when i first see him he is upset as pain control not helping - maybe takes pain from a 10 to a 9 but also wears off really quickly. later called to revisit as he was angry, yelling, demanding to leave. tried to ask questions about suicidality and also about capacity. he mostly responded in anger about the care he was receiving and that he would just go to [facility] if he got worse. i offered to transfer him to [facility] so that care would not be interrupted but he declined, instead demanding to leave. girlfriend asked good question about what to watch for if he were to leave, and insisted he had no SI because they were working on building a life together - but was fairly hard to redirect him to answer questions in regards to SI or capacity. angrily denied SI but noted he had eaten razor blades before. noted that he taped them and would have BM later and watch them pass. because he had done this before without apparent consequence, he seemed to not really believe that there could be adverse consequences, although did at least let me start to tell him what to watch for. asked for a dose of pain meds before leaving, when i told him that would be a poor idea due to potentially covering pain from perforation, he then angrily ripped out IV himself. security then arrived and around the same time psych liaison who noted that psych had in fact started 302 process. pt continued to be insistent on leaving, then as i was talking w girlfriend as security was talking wtih pt he made sudden move to leave and had to be physically restrained. haldol and ativan given and he continued to angrily yell/verbally abuse staff. did seemt o have understanding that he would have to stay and did allow for IV to be replaced. vitals noted initially mildly agitated later severely so, although no appearance of pain/distress. heent nc at mmm abd soft nd no guarding/rebound/rigidity. midline scar noted. somewhat tender without other worrisome features. no pallor or icterus. razor blade ingestion - one retrieved, was taped. pt claims other two were as well - so hoepfully will pass without incident - need to watch closely, serial KUB, serial exam. if any s/s peritonitis/perforation - then surgery on case as backup. psych input appreciated as regards to 302. otherwise as above this evening time in ~5p, time out ~545p >30mins in attempts to de-escalate situation face to face and in discussions w significant other in and immediately outside of the room. Subjective Patient examined multiple times at the bedside this morning. Patient noting that his primary concern at this time is abdominal pain which began after ingesting razor blades the night prior. At this time patient noted he did not want to discuss the events leading up to the ingestion and that he doesn't want to repeat the story over and over. He is requesting to see the notes from this current visit and his abdominal XR's. Review of Systems Constitutional: no fever and no chills Respiratory: no cough and no dyspnea Cardiovascular: no chest pain Gastrointestinal: + abdominal pain; no nausea and no vomiting Has not had a bowel movement as of ingestion and as such denies any blood in stools or black and tarry stools. Physical Exam Constitutional: well developed and well nourished Respiratory: normal respiratory effort, lungs clear to auscultation Cardiovascular: RRR, no murmur, no edema Gastrointestinal (Abdomen): Inspection/Auscultation: abdomen normal to inspection and normal bowel sounds Patient deferred palpation of abdomen. Psychiatric: Orientation: + guarded Results & Data Results & Data ([facility]) Vital Signs (Past 12 Hours) Vital Signs Temp Pulse Pulse Resp BP BP Pulse Ox 12/28/19 07:02 36.4 C L 62 18 111/71 95 12/28/19 03:48 36.7 C 64 18 120/79 92 12/28/19 02:29 67 16 118/75 95 12/28/19 02:15 69 16 117/75 99 12/28/19 02:00 66 16 118/72 95 12/28/19 01:45 36.6 C 67 18 120/76 94 12/28/19 01:44 62 16 114/73 95 12/28/19 01:30 64 16 116/76 93 12/28/19 01:20 67 18 117/78 93 12/28/19 01:10 68 16 112/86 93 12/28/19 01:00 73 18 118/87 100 12/28/19 00:50 73 16 120/78 96 12/28/19 00:40 36.5 C 72 20 118/82 96 12/27/19 23:15 74 14 131/83 97 12/27/19 21:55 36.8 C 98 H 17 143/89 H 95 Resident Activity Tracking Resident Involvement: Resident Care Provided Care Provided: Adult Hospital Medicine (1) Ingestion of foreign body Encounter type: initial encounter Qualified Code(s): T18.9XXA - Foreign body of alimentary tract, part unspecified, initial encounter
--- NOTE | 2019-12-28 08:46 | XRay Report ---
KUB HISTORY: Foreign body ingestion Evalaution for swallowed razor blades (position) COMPARISON: Acute abdominal series radiographs 12/27/2019 FINDINGS: 3 linear metallic density foreign bodies are again noted injecting over the abdominal left upper quadrant expected location of the gastric lumen measuring up to 3.9 cm. Mild gaseous distention of the transverse colon with gas-filled prominent loop of small bowel to the left midabdomen measuri ng 2.9 cm. Surgical suture material is noted within the left upper quadrant and right lower abdomen. Nonobstructive bowel gas pattern. No renal calculi. No ureteral calculi. No pneumoperitoneum or pneu matosis. No fracture. IMPRESSION: 1. 3 linear metallic foreign bodies suggestive of a razor blades are again noted projecting over the abdominal left upper quadrant, likely within the gastric lumen. 2. No pneumoperitoneum identified. 3. Nonobstructive bowel gas pattern. ACT 112: Negative or not required by law. The above report was generated using voice recognition software. It may contain grammatical, syntax o r spelling errors. Electronically signed by: Jayden Barone M.D. 12/28/2019 8:44 AM
[2019-12-28] MEDS ORDERED: clonazePAM 1 MG TAB PO SCH (09:30)
[2019-12-28] MEDS: clonazePAM 1 MG TAB PO SCH ×3 (09:39→19:37)
[2019-12-28] MEDS: ESCITALOPRAM OXALATE 20 MG TAB PO SCH (09:55)
--- NOTE | 2019-12-28 10:09 | History & Physical Bridge Note ---
Date of Service December 28, 2019 History & Physical Bridge Note I have examined the patient, reviewed the History & Physical and in the interval since the performance of the History & Physical I have noted the following changes of clinical significance: Patient with unsuccessful removal of razor blades by Dr. Matias last evening. KUB this morning demonstrates that the blades remain in the gastric region. He states he is having significant pain in the epigastric region but no n/v. No overt GIB symptoms. PE: A&O but agitated this morning. Lungs CTA bilaterally. RRR without M/R/G. Abdomen is soft, distended. +abdominal scars. Tender to palpation. Moves all extremities. No edema, rashes. A/P: Foreign body ingestion yesterday. EGD with Dr. Man today to attempt removal.
[2019-12-28] MEDS: GABAPENTIN 600 MG TAB PO SCH ×3 (10:39→19:33)
[2019-12-28] MEDS ORDERED: HYDROmorphone INJ 1 MG/ML SYRINGE IV STA (11:19)
[2019-12-28] MEDS ORDERED: HYDROmorphone INJ 1 MG/ML SYRINGE ONE (11:19)
[2019-12-28 11:20] LABS: Hematocrit (blood only) 44.5 % (42-52); Hemoglobin 14.8 g/dL (14.0-18.0)
--- NOTE | 2019-12-28 13:12 | Anesthesiology Consultation ---
Date of Service December 28, 2019 Assessment & Plan (1) Encounter for pre-operative examination: Chart Review Chart Review: Acceptable Risk for Surgery and Patient NOT seen in Pre Admission Testing Consults Requested none ASA [id number] Proposed Anesthesia Anesthesia Type: General Risk / Benefits Reviewed With: PT / POA / Parent / Guardian, Accepts Plan and Informed Consent Obtained History Surgery Operation Date: 12/28/19 00:30 Proposed Procedures p Esophagogastroduodenoscopy - Timmy Matias DO Operation Date: 12/28/19 09:40 Proposed Procedures p Esophagogastroduodenoscopy - Andi Man MD Height/Weight Height: 6 ft 1 in Weight: 92.4 kg Allergies Allergy/AdvReac Type Severity Reaction Status Date / Time mushroom Allergy Severe Anaphylaxis Verified 12/27/19 22:12 meperidine [From Demerol] Allergy Intermediate Rash Verified 12/27/19 22:12 morphine Allergy Intermediate Rash Verified 12/27/19 22:12 lamotrigine [From Lamictal] AdvReac Unknown Hallucinati Verified 12/27/19 22:13 ng Medications Home Medications Medication Instructions Recorded Confirmed Last Taken clonazepam 1 mg PO TID 03/27/19 12/27/19 12/27/19 clonidine HCl 0.1 mg PO HS 03/27/19 12/27/19 1 Day Ago ~12/26/19 escitalopram oxalate 20 mg PO DAILY 03/27/19 12/27/19 12/27/19 perphenazine 12 mg PO DAILY 03/27/19 12/27/19 1 Day Ago ~12/26/19 Multi Vitamin 1 tab PO DAILY 12/27/19 12/27/19 12/27/19 gabapentin 600 mg PO TID 12/27/19 12/27/19 12/27/19 trazodone 50 mg PO HS 12/27/19 12/27/19 1 Day Ago ~12/26/19 Active Medications Generic Name Dose Route Start Last Admin Trade Name Freq PRN Reason Stop Dose Admin Clonazepam 1 mg 12/28/19 14:00 12/28/19 09:39 Clonazepam 1 Mg Tab PO 01/27/20 13:59 1 mg TID BRYAN Administration Escitalopram Oxalate 20 mg 12/28/19 09:30 12/28/19 09:55 Escitalopram Oxalate 20 Mg Tab PO 12/10/20 09:29 20 mg DAILY BRYAN Administration Gabapentin 600 mg 12/28/19 10:00 12/28/19 10:39 Gabapentin 600 Mg Tab PO 01/27/20 09:59 600 mg TID BRYAN Administration Potassium Chloride/Sodium Chloride 20 meq in 1,000 mls @ 100 mls/hr 12/28/19 03:43 12/28/19 04:32 Normal Saline W/20 Meq Kcl IV 01/27/20 03:42 100 mls/hr .Q10H BRYAN Administration NPO Date Last Intake of Fluids: 12/27/19 Time Last Intake of Fluids: 15:00 Date Last Intake of Solids: 12/27/19 Time Last Intake of Solids: 15:00 Past Medical History Medical History Depression Depression H/O foreign body ingestion Exercise / Class Metabolic Activity II 4-5 Yardwork/Stairs/Walk up hill Negative for chest pain or shortness of breath. Past Family History Family History Other Family history non-contributory Past Surgical History Surgical History History of endoscopy S/P hernia surgery Past Anesthesia History No Hx of Anesthesia Complications History of PONV No Hx of PONV Social History Smoking Status: Current every day smoker tobacco type: cigarettes Smoking cigarettes per day: 10 Do You Dip or Chew Tobacco: No Hx Alcohol Use: No Hx Substance Use: Yes substance use type: marijuana Review of Systems Patient denies active symptoms of GERD. Physical Exam Vital Signs Last Vital Signs Temp 36.8 C 12/28/19 12:31 Pulse 69 12/28/19 12:31 Resp 16 12/28/19 12:31 BP 142/70 H 12/28/19 12:31 Pulse Ox 95 12/28/19 12:31 Constitutional not obese ENMT Mouth: + poor dentition; no TMJ abnormality and oral opening not small Thyromental Distance: > or= 3.5 Finger Breadths Mallampati Class: II Mouth / Teeth: 1. missing Neck normal visual inspection; neck extension not limited Respiratory normal respiratory effort Auscultation: lungs clear to auscultation bilaterally Cardiovascular Rate/Rhythm: regular rate and regular rhythm Heart Sounds: no murmur Neurologic moves all extremities Psychiatric Orientation: alert and oriented x 3 Testing Laboratory Results 12/28/19 11:09 12/27/19 23:01 Urine Color Yellow 12/27/19 21:15 Urine Appearance Clear (Clear) 12/27/19 21:15 Urine pH 6.5 (4.5-7.5) 12/27/19 21:15 Ur Specific Terry 1.007 (1.000-1.030) 12/27/19 21:15 Urine Protein Negative (Negative) 12/27/19 21:15 Urine Glucose (UA) Negative (Negative) 12/27/19 21:15 Urine Ketones Negative (Negative) 12/27/19 21:15 Urine Nitrite Negative (Negative) 12/27/19 21:15 Ur Leukocyte Esterase Trace (Negative) H 12/27/19 21:15 Urine WBC (Auto) 1-5 /hpf (0-5) 12/27/19 21:15 Urine RBC (Auto) 0-4 /hpf (0-4) 12/27/19 21:15 U Hyaline Cast (Auto) 0 /lpf (0-5) 12/27/19 21:15 U Epithel Cells (Auto) 0-5 /lpf (0-5) 12/27/19 21:15 Urine Bacteria (Auto) Negative (Negative) 12/27/19 21:15
--- NOTE | 2019-12-28 13:24 | Psychiatric Consultation ---
Date of Consultation December 28, 2019 Impression / Recommendations Impression Dr. Brenda Michael was directly involved in review and discussion of the patient's case and participated in medical decision making regarding treatment recommendations. RECOMMENDATIONS: 12/27 - Pt with long history of inappropriate coping by foreign body ingestion. Pt was last seen on our consult service in 03/2019 for very similar presentation. Psychiatric consultation was requested this admission to evaluate patient s/p intentional ingestion of 3 razor blades. At time of evaluation, patient had had two EGDs with ability to only remove 1 razor blade. If patient's reports are accurate, two remain in his digestive tract and location and symptoms are being tracked. - Pt does admit that ingestion of the razor blades was in response to hearing voices telling him to kill himself, and having visualized a "dark figure." Furthermore, patient states that he had forgotten to take his antipsychotic medication for the past 2-3 nights and also admits to having used marijuana prior to these events occurring. Pt reports that he did not want to harm himself, so he "tricked the devil" by wrapping the razor blades with tape prior to ingesting them. - Pt denies SI/HI and thoughts of self harm presently. He admits to ingesting foreign bodies is a chronic inappropriate coping skill for him and he is requesting referrals for outpatient therapy. It will be helpful to gather collateral information from the patient's current outpatient psychiatric, and records have been requested. We will need to gather collateral information to better determine patient's psychiatric history and learn about recent concerns. - Will fax consultation to patient's outpatient psychiatrist. Although additional information would be helpful, it is not recommended that patient be provided with controlled substances with abuse potential given his manipulative behaviors and clear issues with mood dysregulation. It is also suspected he is not utilizing these medication effectively, as his UDS was negative for benzodiazepines despite being provided with a prescription for 90 tablets of clonazepam on 12/19/2019. It seems patient is consistently filling these prescriptions several days early. - A 302 petitioning statement has been completed based on patient presenting as a clear danger to himself through his foreign body ingestion. [facility] [employer] [facility] [employer] can be contacted to provide a mental health delegate to sign off on warrant should patient demand to leave the hospital AMA prior to medical clearance. Pt should not be permitted to leave the facility for any reason until we are able to develop a safe and appropriate discharge plan. Please reach out to our service with any additional questions or updates. Psych History Identifying Data 44-year-old male admitted medically on 12/27/2019 after presenting to the ED s/p intention ingestion of 3 razor blades. Pt has a history of foreign body ingestion and was last seen on our consult service for similar behavior in 03/2019. Psychiatric consultation was requested this admission to evaluate patient for ingestion of razor blades. Chief Complaint "It's not really a big thing, it's like a one time thing." History of Present Illness Rylan Romero is a 44-year-old male admitted medically on 12/27/2019 after presenting to the ED s/p intentional ingestion of 3 razor blades. Pt states he had heard voices telling him to kill himself and believed he saw a "dark figure." Pt has a history of similar behavior and was seen on our consult service in 03/2019 for similar presentation. Psychiatric consultation was requested to evaluate patient for ingestion of razor blades, presumed to be in attempts to harm himself. It was reported that patient has been demonstrating manipulative and demanding behavior most of the day. He has been uncooperative with interviews and was not forthcoming with information according to review of recent documentation. Pt seemed to be more cooperative with psychiatric assessment this afternoon. He was receiving a visit from his "" and did provide verbal permission for her to remain in room during our conversation. 1:1 was also present at time of encounter. Pt shares with this provider "It's not really a big thing, it's like a one time thing." Pt states that he had been "smoking a joint" yesterday and then began hearing voices telling him to kill himself. He also believed that he saw "a dark figure or something, I don't know what it was." Pt then states "I think I need my medications adjusted. But...eh...I guess I haven't been taking them for two or three days." Pt states that he has been in the process of moving and has forgotten the last several doses of her perphenazine. He does have an outpatient psychiatrist and is reporting interest in therapy referrals. Pt then states "I wasn't trying to hurt myself, I'm not suicidal or anything. I actually wrapped the razors in tape, thinking I could trick the devil." Pt denies SI/HI and acute safety concerns presently. Pt was challenged on his previous statements, suggesting this behavior is a "one time thing" - and was reminded of our consultation back in 03/2019 for similar behavior. Pt shares "well, I've swallowed stuff before. It's just what I do, I don't quite get it myself, that's why I need a therapist." Pt shares that if he continues to share why he believes he does this "I'll be talking to you for the next 2-3 days." Pt was invited to continue to share information, but declined. Conversation was turned to the patient's significant other, with the patient's permission. She states she returned home just in time to know that the patient had ingested the razor blades "and I thought 'oh no, not again. I hope his stomach is ok, and that he won't need surgery'." She states that she is aware of his history and that in some ways she blames herself - "If I hadn't been out shopping at the time, this wouldn't have happened." This provider challenged the patient to take some ownership of this situation, and suggested that we needed to discuss independent coping skills he can utilize to keep himself safe in these situations. Pt did state that he could call his significant other - " or anyone for that matter" - and "I just didn't." He is also able to verbalize some additional coping strategies that might have helped him calm down. Pt feels it would be adequate for him to be discharged home with therapy referral. He was informed that the other possibility would be recommendation for inpatient psychiatric treatment, if it was felt he was unsafe for discharge. Pt states "I won't go, no way." Pt did make some threatening statements that "I'll hurt someone here before you could drag me, why would you even bring that up. If you're going to start talking about inpatient, then I'm grabbing my stuff and leaving right now." Pt's girlfriend did interrupt patient and attempted to help him calm down when he began the threatening behavior. Pt was told that this provider wanted him to be informed of all possible outcomes. He was able to maintain appropriate behavior after this, but did state "You've upset me, and I think we'll need to continue this conversation later." He denied any further questions and this provider did leave his room. A 302 petitioning statement was completed by this provider based on our conversation. By the time this provider returned to her office, a Elysia Kauffman had been called on the patient. Past Psychiatric History Outpatient Services: Psychiatrist - [facility] Previous Psych Admissions: [facility] - 2013 for ~3 years [facility] - 2013 Also hospitalized in [place], [place] History of Previous Suicide Attempt: Yes (numerous previous foreign body ingestions) Past Medication Trials: Per patient's report: 1. Lexapro 2. Perphenazine 3. Klonopin 4. Clonidine 5. Gabapentin 6. Trazodone Allergies Allergy/AdvReac Type Severity Reaction Status Date / Time mushroom Allergy Severe Anaphylaxis Verified 12/27/19 22:12 meperidine [From Demerol] Allergy Intermediate Rash Verified 12/27/19 22:12 morphine Allergy Intermediate Rash Verified 12/27/19 22:12 lamotrigine [From Lamictal] AdvReac Unknown Hallucinati Verified 12/27/19 22:13 ng Home Medications Home Medications Medication Instructions Recorded Confirmed Type clonazepam 1 mg PO TID 03/27/19 12/27/19 History clonidine HCl 0.1 mg PO HS 03/27/19 12/27/19 History escitalopram oxalate 20 mg PO DAILY 03/27/19 12/27/19 History perphenazine 12 mg PO DAILY 03/27/19 12/27/19 History Multi Vitamin 1 tab PO DAILY 12/27/19 12/27/19 History gabapentin 600 mg PO TID 12/27/19 12/27/19 History trazodone 50 mg PO HS 12/27/19 12/27/19 History Family History Pt reports his mother has been treated for depression. Substance Abuse History Pt does admit to using marijuana prior to admission. He is not cooperative with interview long enough for this provider to assess for any additional substance use recently. UDS positive for marijuana, and surprisingly negative for benzodiazepines despite patient reporting he is prescribed clonazepam 1mg TID. Personal History Living Arrangements: Apartment (with fiance/significant other - states they will be moving soon) Employment Status: Disabled Marital Status: Living w/ Signif. Other Number Of Children: None Beliefs That Will Affect Care: None Patient History Medical History Depression Depression H/O foreign body ingestion Surgical History History of endoscopy S/P hernia surgery Family History Other Family history non-contributory Social History Smoking Status: Current every day smoker Cigarettes Per Day: 10; Do You Dip or Chew Tobacco: No; Hx Alcohol Use: No Hx Substance Use: Yes Preferred Language: Libyan Communication Ability: Effective Residential Sales Associate Required: No Beliefs That Will Affect Care: None Current Living Situation: Significant Other current occupational status: disabled Other Information That Helps Us Care for You: No Feels Safe at Home: Yes Safety Concerns: Feels Safe At This Time Assistive Devices: None Physical Exam Psychiatric: Orientation: alert, oriented x 3 and + guarded (superficially cooperative) Apperance: appropriately dressed, appropriately groomed and appeared stated age Eye Contact: + fair eye contact Motor Behavior: no abnormal motor movements (observed while laying in bed) Speech: normal rate/rhythm/volume of speech Affect: + irritable affect and + angry affect Mood: no depressed mood ("I've been fine, I just missed a few doses of my antipsychotic") Thought Process: goal directed thought process and + concrete thought process; + thought process not linear or logical (at least as it relates to his inappropriate coping ) Thought Content: + cognitive distortions; no hopelessness and no worthlessness Suicidal Thoughts: denies suicidal thoughts and denies suicidal intent Pt states he was not intending to harm himself Homicidal Thoughts: denies homicidal thoughts Hallucinations: no auditory hallucinations and no visual hallucinations Denies presently, but admits to auditory and visual hallucinations prior to ingesting razor blades Cognition: attention grossly intact and language grossly intact Insight: + poor insight Judgement: + poor judgement Vital Signs (Past 24 Hours): Last Vital Signs Temp 36.8 C 12/28/19 12:31 Pulse 69 12/28/19 12:31 Resp 16 12/28/19 12:31 BP 142/70 H 12/28/19 12:31 Pulse Ox 95 12/28/19 12:31 Review of Systems Constitutional: denied Cardiovascular: denied Respiratory: denied Gastrointestinal: reports abdominal pain Neurological: denied Psychiatric: denies symptoms other than stated above Total of at least 10 systems reviewed, pertinent positives as above and in HPI. Results & Data (PSY) Medications Administered Clonazepam (Clonazepam 1 Mg Tab) 1 mg PO TID BRYAN Stop: 01/27/20 13:59 Last Admin: 12/28/19 09:39 Dose: 1 mg Documented by: [id number] Escitalopram Oxalate (Escitalopram Oxalate 20 Mg Tab) 20 mg PO DAILY BRYAN Stop: 01/27/20 09:29 Last Admin: 12/28/19 09:55 Dose: 20 mg Documented by: [id number] Gabapentin (Gabapentin 600 Mg Tab) 600 mg PO TID BRYAN Stop: 01/27/20 09:59 Last Admin: 12/28/19 10:39 Dose: 600 mg Documented by: [id number] Potassium Chloride/Sodium Chloride (Normal Saline W/20 Meq Kcl) 20 meq in 1,000 mls @ 100 mls/hr IV .Q10H BRYAN Stop: 01/27/20 03:42 Last Admin: 12/28/19 04:32 Dose: 100 mls/hr Documented by: [id number] Coding Level of Care Code 29621 U Intl Hosp Care Lvl 2
[2019-12-28] MEDS ORDERED: LIDOCAINE HCL 2% 2 ML VIAL/AMP(20MG/ML) INFIL ONE ×2 (13:59→14:00)
[2019-12-28] MEDS ORDERED: PROPOFOL IV EMULSION 10 MG/ML 20 ML VIAL IV ONE (13:59)
[2019-12-28] MEDS ORDERED: SUCCINYLCHOLINE CHLORIDE 20 MG/ML 10 ML VIAL IV ONE (14:00)
[2019-12-28] MEDS ORDERED: DEXAMETHASONE SOD INJ 4 MG/ML VIAL ONE (14:00)
[2019-12-28] MEDS ORDERED: ONDANSETRON INJ 2 MG/ML 2 ML VIAL ONE (14:00)
[2019-12-28] MEDS ORDERED: ROCURONIUM BROMIDE 10 MG/ML 5 ML VIAL IV ONE (14:00)
--- NOTE | 2019-12-28 14:22 | GI REPORT ---
Patient Name: Rylan Romero Procedure Date: 12/28/2019 1:15 PM Date of : 1975 Admit Type: Inpatient Age: 44 Gender: Male Attending MD: Andi Man MD Procedure: Upper GI endoscopy Providers: Andi Man MD Referring MD: Sim Obregon Indications: Foreign body in the stomach Medicines: Monitored Anesthesia Care Complications: No immediate complications. Estimated blood loss: None. Estimated Blood Loss: Estimated blood loss: none. Procedure: Pre-Anesthesia Assessment: - Prior Anticoagulants: The patient has taken no previous anticoagulant or antiplatelet agents. - ASA Grade Assessment: II - A patient with mild systemic disease. After obtaining informed consent, the endoscope was passed under direct vision. Throughout the procedure, the patient's blood pressure, pulse, and oxygen saturations were monitored continuously. The Endoscope was introduced through the mouth, and advanced to the second part of duodenum. The upper GI endoscopy was accomplished without difficulty. The patient tolerated the procedure well. Findings: The examined esophagus was normal. One Razor blade with tape were found in the gastric fundus. Removal was accomplished with a rat-toothed forceps. Estimated blood loss: none. The duodenal bulb and second portion of the duodenum were normal. stomach was otherwise normal. Impression: - Normal esophagus. - Razor blade with tape were found in the stomach. Removal was successful. - Normal duodenal bulb and second portion of the duodenum. Recommendation: - Return patient to [facility] for ongoing care. - Clear liquid diet today. -serial KUBs to track the other razor blade(s) that have passed into the small intestine/colon -monitor for worsening symptoms, serial abdominal exams, low threshold for surgical evaluation if worsening symptoms/surgical abdomen. Andi Man MD 12/28/2019 2:21:43 PM This report has been signed electronically. Note Initiated On: 12/28/2019 1:15 PM Number of Addenda: 0 I attest to the content of the Intraoperative Record and orders documented therein, exceptions below {[id number]}
--- NOTE | 2019-12-28 14:43 | Anesthesiology Progress Note ---
Date of Service December 28, 2019 Anesthesia Post Procedure Vital Signs Vital Signs: Temp Pulse Pulse Pulse Resp BP BP 12/28/19 14:35 56 L 15 12/28/19 14:25 36.5 C 61 12 12/28/19 12:31 36.8 C 69 16 142/70 H 12/28/19 11:28 36.4 C L 73 16 137/93 12/28/19 07:02 36.4 C L 62 18 111/71 12/28/19 03:48 36.7 C 64 18 120/79 12/28/19 02:29 67 16 118/75 12/28/19 02:15 69 16 117/75 12/28/19 02:00 66 16 118/72 12/28/19 01:45 36.6 C 67 18 120/76 12/28/19 01:44 62 16 114/73 12/28/19 01:30 64 16 116/76 12/28/19 01:20 67 18 117/78 12/28/19 01:10 68 16 112/86 12/28/19 01:00 73 18 118/87 12/28/19 00:50 73 16 120/78 12/28/19 00:40 36.5 C 72 20 118/82 12/27/19 23:15 74 14 131/83 12/27/19 21:55 36.8 C 98 H 17 143/89 H BP Pulse Ox 12/28/19 14:35 131/91 94 12/28/19 14:25 142/92 H 95 12/28/19 12:31 95 12/28/19 11:28 95 12/28/19 07:02 95 12/28/19 03:48 92 12/28/19 02:29 95 12/28/19 02:15 99 12/28/19 02:00 95 12/28/19 01:45 94 12/28/19 01:44 95 12/28/19 01:30 93 12/28/19 01:20 93 12/28/19 01:10 93 12/28/19 01:00 100 12/28/19 00:50 96 12/28/19 00:40 96 12/27/19 23:15 97 12/27/19 21:55 95 Pain Intensity Abdomen: Pain Intensity: 6 Throat: Pain Intensity: 6 Transfer of Care Handoff Completed per policy Notes Mental Status: alert / awake / arousable and participated in evaluation Patient Amnestic to Procedure: Yes Nausea / Vomiting: adequately controlled Pain: adequately controlled Airway Patency, RR, SpO2: stable & adequate BP & HR: stable & adequate Hydration State: stable & adequate Anesthetic Complications: no major complications apparent and Pt Satisfied with anesthetic care
[2019-12-28] MEDS: HYDROmorphone INJ 1 MG/ML SYRINGE IV PRN ×5 (15:19→23:42)
[2019-12-28] MEDS ORDERED: HALOPERIDOL LACTATE 5 MG/ML 1 ML VIAL ONE (16:59)
[2019-12-28] MEDS ORDERED: LORazepam 2 MG/4 ML VIAL ONE (17:09)
[2019-12-28] MEDS ORDERED: HALOPERIDOL LACTATE 5 MG/ML 1 ML VIAL IM STA (17:09)
[2019-12-28] MEDS ORDERED: LORazepam 2 MG/ML VIAL (IM USE) IM STA (17:09)
[2019-12-28 18:41] LABS: Hematocrit (blood only) 43.6 % (42-52); Hemoglobin 14.4 g/dL (14.0-18.0)
[2019-12-28] MEDS: NICOTINE 21 MG/24 HR TDSY TD SCH (18:45)
--- NOTE | 2019-12-28 18:45 | XRay Report ---
XR KUB/Abdomen 1 view CLINICAL HISTORY: razor blade ingestion - follow progress, ?air COMPARISON STUDY: Earlier in the day FINDINGS: There is a single radiopaque metallic foreign body projected over the left midabdomen. Ther e is adjacent small bowel loop at the upper limits of normal in diameter The other 2 foreign bodies p reviously described are no longer visualized. IMPRESSION: 1. Single metallic foreign body projected over the left mid abdomen. 2. Adjacent small bowel loop at the upper limits of normal in diameter ACT 112: Negative or not required by law. Electronically signed by: Hamlet Butterfield M.D. 12/28/2019 6:44 PM
--- NOTE | 2019-12-28 18:49 | Billing Data ---
Date of Service December 28, 2019 Coding Level of Care Code 79001 Subseq Hosp Care Lvl 3
--- NOTE | 2019-12-28 18:49 | Billing Data ---
Date of Service December 28, 2019 Coding Level of Care Code 28111 Prolonged Care (int'l)
[2019-12-28] MEDS: cloNIDine HCL 0.1 MG TAB PO SCH (19:33)
[2019-12-28] MEDS: traZODone HCL 50 MG TAB PO SCH (19:33)
[2019-12-29] MEDS: NSS + 20MEQ KCL 20 MEQ/1,000 ML BAG IV SCH ×3 (00:07→19:33)
[2019-12-29] MEDS: HYDROmorphone INJ 1 MG/ML SYRINGE IV PRN ×12 (01:49→23:51)
--- NOTE | 2019-12-29 06:38 | Hospitalist Progress Note ---
Date of Service December 29, 2019 Assessment & Plan (1) Ingestion of foreign body: Patient is a 44 year old male with PMHx personality disorder, impulse control disorder, depression, visual and auditory hallucinations who presented initially after a suicide attempt secondary to swallowing razor blades. Suicide Attempt secondary to Foreign Body Ingestion -Per chart review patient had noted auditory and visual hallucinations that instructed him to swallow razor blades. -In the ED XR's revealed 3 radiopaque foreign bodies consistent with razor blades. -Patient underwent EGD with Dr. Matias on admission, but was unable to remove the razor blades secondary to significant portion of food debris. -General Surgery consulted, no plans for surgical operations at this time as patient has no signs of perforation presently -Would recommend CT scan prior if further localization needed. -Patient underwent EGD with Dr. Man yesterday who was able to remove 1 of the 3 razor blades, the blade was wrapped in tape. -Psychiatry consulted, appreciate recommendations -Patient currently 302'd, not safe to leave on his own -Plans for inpatient psychiatric treatment once medically stable -Of note, patients tox screen was positive for THC on admission. -Dilaudid 1mg q2h PRN for pain -Serial abdominal exams to screen for perforation - today 2 remaining razor blades still noted in the RUQ of abdomen. No signs of peritonitis or perforation. -H&H q6h to monitor for perforation and bleed. -See attending attestation on note from 12/28/19 in regards to patients Code Minor incident. -Will continue Haldol 5mg q6h PRN and Ativan 1mg q6h PRN for further cases of aggression. Depression -Continue patients home Lexapro 20mg -Continue Klonopin 1mg TID -Continue Catapres 0.1mg HS -Continue Neurontin 600mg TID -Continue Trazodone 50mg HS -Plans for inpatient psychiatric treatment once medically cleared. Dispo: PCU FEN: Diet advanced to regular per surgery service, NSS +20meq KCl @100ml/hr DVT: Low Risk Code: Full Admission and Anticipated Discharge Date Admission Date: December 27, 2019 Supervising Physician Co-Signing Physician Notes I personally examined the patient and verified all barajas points of history and exam, discussed case, and agree with decision making with Dr Olea. pain controlled w pain meds. no BM yet. feels R upper abdominal pain thinks it's around where i showed him razor blades are. appreciative of care but simultaneously swearing and angry w psych for reaching out to pt's psych and wanting to talk to them and roberto them. vitals noted nad heent nc at mmm breathing unlabored no accessory muscles good effort skin no rashes no pallor or icterus neuro no focal deficits. abd soft nd nt razor blade ingestion - one retrieved, was taped. pt claims other two were as well - so hopefully will pass without incident - need to watch closely, serial KUB, serial exam. did show progress on transit - although stalled on last XR. consider gentle miralax if continues to stall given no BM and narcotics could easily induce constipation. would not want antyhing more stimulating so as not to produce much of any contraction. exams and sx reassuring. as a late in the day addendum he refuses further labs or xrays until able to talk to psych. if any s/s peritonitis/perforation - then surgery on case as backup. psych input appreciated as regards to 302/etc. otherwise as above Subjective Patient examined at the bedside this AM. Noted that he was still having upper R abdominal discomfort. Otherwise denied any complaints. Review of Systems Constitutional: no fever and no chills Respiratory: no cough and no dyspnea Cardiovascular: no chest pain, no dyspnea on exertion and no palpitations Gastrointestinal: + abdominal pain (RUQ); no nausea, no vomiting, no constipation and no diarrhea/loose stools Genitourinary: no dysuria Physical Exam Constitutional: well developed and well nourished Respiratory: normal respiratory effort, lungs clear to auscultation Cardiovascular: RRR, no murmur, no edema Gastrointestinal (Abdomen): Inspection/Auscultation: abdomen normal to inspection and normal bowel sounds Percussion/Palpation: + abdomen tender (slight tenderness in RUQ without signs of peritonitis ) and abdomen soft; abdomen not rigid Psychiatric: Orientation: + guarded Results & Data Results & Data ([facility]) Vital Signs (Past 12 Hours) Vital Signs Temp Pulse Pulse Resp BP Pulse Ox 12/29/19 01:15 67 12/28/19 23:50 36.4 C L 76 16 111/67 91 12/28/19 19:05 36.5 C 70 16 110/70 91 Resident Activity Tracking Resident Involvement: Resident Care Provided Care Provided: Adult Hospital Medicine (1) Ingestion of foreign body Encounter type: initial encounter Qualified Code(s): T18.9XXA - Foreign body of alimentary tract, part unspecified, initial encounter
--- NOTE | 2019-12-29 07:13 | XRay Report ---
KUB HISTORY: Follow up study in a patient with foreign body ingestion monitor for razor blade passage/pe rforation COMPARISON: KUB 12/28/2019 FINDINGS: Nonobstructive bowel gas pattern. There is a 3.8 cm metallic foreign body which projects ov er the right midabdomen. No renal calculi. No ureteral calculi. No pneumoperitoneum or pneumatosis. No fracture. IMPRESSION: 1. 3.8 cm linear metallic foreign body projects over the right midabdomen. This may reflect a single foreign body or less likely two subadjacent foreign bodies. 2. No bowel obstruction or pneumoperitoneum. ACT 112: Negative or not required by law. The above report was generated using voice recognition software. It may contain grammatical, syntax o r spelling errors. Electronically signed by: Jayden Barone M.D. 12/29/2019 7:12 AM
--- NOTE | 2019-12-29 07:19 | Surgery Progress Note ---
Date of Service December 29, 2019 Assessment & Plan (1) Ingestion of foreign body: Patient appears to be stable KUB does show evidence of foreign body likely in the small bowel Would advance his diet to regular A.m. KUB is pending No plan for operation unless absolutely necessary, even with retained foreign body Admission and Anticipated Discharge Date Admission Date: December 27, 2019 Subjective Patient is awake and alert in his bed He is hungry He complains of abdominal pain His vital signs are stable Review of Systems Review of Systems: All systems reviewed & are unremarkable except as noted in HPI & below Physical Exam Physical Exam: Patient's abdomen is flat and soft with active bowel sounds minimal tenderness No evidence of peritoneal irritation Constitutional: well developed; no acute distress Eyes: + anicteric sclerae Respiratory: normal respiratory effort; no respiratory distress Cardiovascular: Rate/Rhythm: regular rate Musculoskeletal: Head/Neck/Chest: head atraumatic Skin: no rashes, warm and dry Neurologic: awake Psychiatric: Orientation: alert Results & Data ([facility]) Vital Signs (Past 12 Hours) Vital Signs Temp Pulse Pulse Resp BP Pulse Ox 12/29/19 01:15 67 12/28/19 23:50 36.4 C L 76 16 111/67 91 PG Care Time/CCT Total # of Minutes Spent Total Time Spent with Patient: Total time spent is greater than 50% in coordination of care (as documented) at patient's floor/unit and/or counseling patient: Coding Level of Care Code 27552 Subseq Hosp Care Lvl 3 Diagnoses Ingestion of foreign body T18.9XXA Encounter type: initial encounter (1) Ingestion of foreign body Encounter type: initial encounter Qualified Code(s): T18.9XXA - Foreign body of alimentary tract, part unspecified, initial encounter
[2019-12-29] MEDS: GABAPENTIN 600 MG TAB PO SCH ×3 (08:00→20:18)
[2019-12-29] MEDS: clonazePAM 1 MG TAB PO SCH ×3 (08:00→20:17)
[2019-12-29] MEDS: ESCITALOPRAM OXALATE 20 MG TAB PO SCH (08:00)
[2019-12-29] MEDS: NICOTINE 21 MG/24 HR TDSY TD SCH (08:00)
--- NOTE | 2019-12-29 09:42 | Gastroenterology Progress Note ---
Date of Service December 29, 2019 Assessment & Plan (1) Ingestion of foreign body: 1. Continue serial x rays to ensure foreign bodies pass. 2. Continue supportive care. 3. Surgery is on board. Admission and Anticipated Discharge Date Admission Date: December 27, 2019 Subjective Patient reports having RUQ pain today. States "I can feel them moving through me". KUB this morning demonstrated 2 blades in the right upper abdomen and have progressed from yesterday's imaging. One razor blade successfully removed via endoscopy by Dr. Man yesterday. No overt GIB symptoms, nausea or vomiting. Review of Systems Constitutional: no fever and no chills Gastrointestinal: as per Subjective / HPI Physical Exam Constitutional: WD/WN, vitals as above Eyes: EOM intact bilaterally Neck: normal visual inspection Respiratory: normal respiratory effort Gastrointestinal (Abdomen): Inspection/Auscultation: + abdomen distended, normal bowel sounds and + abdominal surgical scar Percussion/Palpation: + abdomen tender and abdomen soft Psychiatric: A+Ox3, euthymic affect Results & Data Results & Data ([facility]) Vital Signs (Past 12 Hours) Vital Signs Temp Pulse Pulse Resp BP Pulse Ox 12/29/19 01:15 67 12/28/19 23:50 36.4 C L 76 16 111/67 91 PG Care Time/CCT Total # of Minutes Spent Total Time Spent with Patient: Total time spent is greater than 50% in coordination of care (as documented) at patient's floor/unit and/or counseling patient: Coding Level of Care Code 39685 Subseq Hosp Care Lvl 3 Diagnoses Ingestion of foreign body T18.9XXA Encounter type: initial encounter (1) Ingestion of foreign body Encounter type: initial encounter Qualified Code(s): T18.9XXA - Foreign body of alimentary tract, part unspecified, initial encounter
[2019-12-29 10:26] LABS: Hematocrit (blood only) 43.1 % (42-52); Hemoglobin 13.6 g/dL (14.0-18.0); Mean Corpuscular Hemoglobin 28.7 pg (25-34); Mean Corpuscular Hgb Conc 31.6 g/dL (32-36); Mean Corpuscular Volume 90.9 fL (80-100); Mean Platelet Volume 11.3 fL (7.4-10.4); Platelet Count 233 K/uL (130-400); RDW Coefficient of Variation 13.9 % (11.5-14.5); RDW Standard Deviation 46.4 fL (36.4-46.3); Red Blood Count 4.74 M/uL (4.7-6.1); White Blood Count 13.67 K/uL (4.8-10.8)
[2019-12-29 10:38] LABS: Basophils # (auto) 0.01 K/uL (0-0.2); Basophils % (auto) 0.1 %; Eosinophils # (auto) 0.06 K/uL (0-0.5); Eosinophils % (auto) 0.4 %; Immature Granulocytes # (auto) 0.05 K/uL (0.00-0.02); Immature Granulocytes % (auto) 0.4 %; Lymphocytes # (auto) 2.03 K/uL (1.2-3.4); Lymphocytes % (auto) 14.9 %; Monocytes # (auto) 0.96 K/uL (0.11-0.59); Neutrophils # (auto) 10.56 K/uL (1.4-6.5); Neutrophils % (auto) 77.2 %
--- NOTE | 2019-12-29 11:44 | Communication Note ---
Date of Service: December 29, [address] Samaniego, outpatient psychiatrist. He was unaware patient had been swallowing razorblades or hospitalized. He has a dysfunctional home environment, lives with his mother and his , and there are interpersonal issues. He has psychotic symptoms that occur when stressed, not consistent with schizophrenia. Diagnosed with bipolar II and SIENA as well as personality disorder, and has considered PTSD. He has been hospitalized at [facility] and met his there. Also abuses cannabis. He is in support of inpatient psychiatric gricelda atment when medically stable. Recommendations: Given repeated hospitalizations for intentional self harm by swallowing razors, and medication nonadherence with psychotic symptoms, recommend inpatient psychiatric treatment when medically stable for transfer to a behavioral health unit, on an involuntary commitment given demands to leave and aggressive/threatening behavior as well as poor insight/judgment. -Patient has a 302 warrant and may not leave AMA.
--- NOTE | 2019-12-29 12:07 | XRay Report ---
KUB HISTORY: monitor for passing of razor blades COMPARISON: KUB of same day at 6:47 AM FINDINGS: Nonobstructive bowel gas pattern. Air-filled loop of large bowel noted within the left mida bdomen. density opaque foreign bodies within the right midabdomen. No renal calculi. No ureteral calc angella. No pneumoperitoneum or pneumatosis. No fracture. IMPRESSION: 1. Unchanged positioning of the two metallic density foreign bodies compatible with patient history o f ingested razor blades which project over the right midabdomen. 2. Nonobstructive bowel gas pattern without pneumoperitoneum. ACT 112: Negative or not required by law. The above report was generated using voice recognition software. It may contain grammatical, syntax o r spelling errors. Electronically signed by: Jayden Barone M.D. 12/29/2019 12:06 PM
[2019-12-29] MEDS: PERPHENAZINE 2 MG TABLET PO SCH (15:57)
[2019-12-29 18:40] LABS: Marijuana Quant, GCMS Urine 1010 ng/mL (<5)
--- NOTE | 2019-12-29 20:13 | Billing Data ---
Date of Service December 29, 2019 Coding Level of Care Code 95108 Subseq Hosp Care Lvl 3
[2019-12-29] MEDS: traZODone HCL 50 MG TAB PO SCH (20:17)
[2019-12-29] MEDS: cloNIDine HCL 0.1 MG TAB PO SCH (20:17)
[2019-12-30] MEDS: HYDROmorphone INJ 1 MG/ML SYRINGE IV PRN ×11 (02:04→21:57)
[2019-12-30] MEDS: NSS + 20MEQ KCL 20 MEQ/1,000 ML BAG IV SCH ×2 (05:30→15:37)
--- NOTE | 2019-12-30 07:02 | Hospitalist Progress Note ---
Date of Service December 30, 2019 Assessment & Plan (1) Ingestion of foreign body: Patient is a 44 year old male with PMHx personality disorder, impulse control disorder, depression, visual and auditory hallucinations who presented initially after a suicide attempt secondary to swallowing razor blades. Suicide Attempt secondary to Foreign Body Ingestion -Per chart review patient had noted auditory and visual hallucinations that instructed him to swallow razor blades. -In the ED XR's revealed 3 radiopaque foreign bodies consistent with razor blades. -Patient underwent EGD with Dr. Matias on admission, but was unable to remove the razor blades secondary to significant portion of food debris. -General Surgery consulted, no plans for surgical operations at this time as patient has no signs of perforation presently -Would recommend CT scan prior if further localization needed. -At this time does not believe for signs of surgical intervention. -Patient underwent EGD with Dr. Man 12/28/19 who was able to remove 1 of the 3 razor blades, the blade was wrapped in tape. -Psychiatry consulted, appreciate recommendations -Patient currently 302'd, not safe to leave on his own -Plans for inpatient psychiatric treatment once medically stable -- Patient prefers [facility] -Spoke with Dr. Michael who noted that patient does have a history of Bipolar Disorder, but at this time does not believe he is in a manage or psychotic episode -As such, believes patient is aware of what he is doing and should he harm staff, can be held responsible. -Of note, patients tox screen was positive for THC on admission. -Dilaudid 1mg q2h PRN for pain -- consider reduction with movement of razor blades to the transverse colon with lessened likelihood of perforation. -Serial abdominal exams to screen for perforation - 2 remaining razor blades still noted in the transverse colon on this AM's KUB -See attending attestation on note from 12/28/19 in regards to patients Code Minor incident. -Will continue Haldol 5mg q6h PRN and Ativan 1mg q6h PRN for further cases of aggression. Depression -Continue patients home Lexapro 20mg -Continue Klonopin 1mg TID -Continue Catapres 0.1mg HS -Continue Neurontin 600mg TID -Continue Trazodone 50mg HS -Continue Perphenazine 12mg QD -Plans for inpatient psychiatric treatment once medically cleared. Dispo: PCU FEN: Safe Tray regular diet, NSS +20meq KCl @100ml/hr DVT: Low Risk Code: Full Admission and Anticipated Discharge Date Admission Date: December 28, 2019 Supervising Physician Co-Signing Physician Notes I personally examined the patient and verified all barajas points of history and exam, discussed case, and agree with decision making with Dr Olea. pain controlled w pain meds. no BM yet. still upset with staff at times. at times still verbally abusive. vitals noted nad heent nc at mmm breathing unlabored no accessory muscles good effort skin no rashes no pallor or icterus neuro no focal deficits. razor blade ingestion - one retrieved, was taped. pt claims other two were as well - so hopefully will pass without incident - need to watch closely, serial KUB, serial exam. did show progress on transit - but as late addendum f/u XR this afternoon appears to have slowed again. will start to gently give miralax given no BM and narcotics could easily induce constipation. would not want anything more stimulating so as not to produce much of any contraction. exams and sx have been reassuring. if any s/s peritonitis/perforation - then surgery on case as backup. psych input appreciated as regards to 302/etc. otherwise as above Subjective Went to evaluate patient this AM at the bedside. Patient with minimal responses, stating that he "won't help you until you help me." Did state he was still having abdominal pain. Review of Systems Review of Systems: Unable to obtain full ROS as patient did not want to talk about it this morning. Did note that he was still having abdominal pain. Physical Exam Physical Exam: Unable to complete physical exam this AM per patients denial. Patient noting that he "won't help you until you help me." Able to carry on conversation without difficulty. Psychiatric: Orientation: + guarded Results & Data Results & Data ([facility]) Vital Signs (Past 12 Hours) Vital Signs Temp Pulse Pulse Resp BP Pulse Ox 12/30/19 03:28 36.4 C L 54 L 16 146/84 H 96 12/30/19 00:16 63 12/29/19 23:43 36.5 C 59 L 16 145/88 H 98 Resident Activity Tracking Resident Involvement: Resident Care Provided Care Provided: Adult Hospital Medicine (1) Ingestion of foreign body Encounter type: initial encounter Qualified Code(s): T18.9XXA - Foreign body of alimentary tract, part unspecified, initial encounter
[2019-12-30 08:03] LABS: Basophils # (auto) 0.02 K/uL (0-0.2); Basophils % (auto) 0.2 %; Eosinophils # (auto) 0.22 K/uL (0-0.5); Eosinophils % (auto) 2.6 %; Hematocrit (blood only) 44.3 % (42-52); Hemoglobin 13.9 g/dL (14.0-18.0); Immature Granulocytes # (auto) 0.04 K/uL (0.00-0.02); Immature Granulocytes % (auto) 0.5 %; Lymphocytes # (auto) 2.24 K/uL (1.2-3.4); Mean Corpuscular Hgb Conc 31.4 g/dL (32-36); Mean Corpuscular Volume 92.3 fL (80-100); Mean Platelet Volume 11.7 fL (7.4-10.4); Monocytes # (auto) 0.83 K/uL (0.11-0.59); Neutrophils # (auto) 4.96 K/uL (1.4-6.5); Neutrophils % (auto) 59.7 %; Platelet Count 212 K/uL (130-400); RDW Standard Deviation 47.1 fL (36.4-46.3); White Blood Count 8.31 K/uL (4.8-10.8)
[2019-12-30] MEDS: PERPHENAZINE 2 MG TABLET PO SCH (08:16)
[2019-12-30] MEDS: ESCITALOPRAM OXALATE 20 MG TAB PO SCH (08:17)
[2019-12-30] MEDS: GABAPENTIN 600 MG TAB PO SCH ×3 (08:17→20:05)
[2019-12-30] MEDS: NICOTINE 21 MG/24 HR TDSY TD SCH (08:18)
--- NOTE | 2019-12-30 08:20 | XRay Report ---
XR KUB/Abdomen 1 view CLINICAL HISTORY: screening for razor blade progression COMPARISON STUDY: 12/28/2009 FINDINGS: There are 2 radiopaque metallic foreign bodies projected over the mid transverse colon. Lef t mid abdominal small bowel loops are the upper limits of normal in diameter. IMPRESSION: There are 2 metallic foreign bodies projected over the mid transverse colon. ACT 112: Negative or not required by law. Electronically signed by: Hamlet Butterfield M.D. 12/30/2019 8:19 AM
[2019-12-30] MEDS: clonazePAM 1 MG TAB PO SCH ×3 (08:23→20:05)
--- NOTE | 2019-12-30 09:17 | Surgery Progress Note ---
Date of Service December 30, 2019 Assessment & Plan (1) Ingestion of foreign body: Appears the foreign body is moving through the colon Down the transverse colon No plan for surgical intervention at this point Admission and Anticipated Discharge Date Admission Date: December 28, 2019 Results & Data ([facility]) Vital Signs (Past 12 Hours) Vital Signs Temp Pulse Pulse Resp BP Pulse Ox 12/30/19 07:34 58 L 12/30/19 03:28 36.4 C L 54 L 16 146/84 H 96 12/30/19 00:16 63 12/29/19 23:43 36.5 C 59 L 16 145/88 H 98 PG Care Time/CCT Total # of Minutes Spent Total Time Spent with Patient: Total time spent is greater than 50% in coordination of care (as documented) at patient's floor/unit and/or counseling patient: Coding Level of Care Code None Diagnoses Ingestion of foreign body T18.9XXA Encounter type: initial encounter (1) Ingestion of foreign body Encounter type: initial encounter Qualified Code(s): T18.9XXA - Foreign body of alimentary tract, part unspecified, initial encounter
--- NOTE | 2019-12-30 12:25 | Psychiatric Progress Note ---
Date of Service December 30, 2019 Impression / Recommendations (1) Ingestion of foreign body: Is a the patient second hospitalization here for swallowing razor blades. Medical treatment per primary team. Recommend limiting Dilaudid/opiates due to drug drug interactions with clonazepam, may be disinhibiting which could worsen his impulse control. (2) Bipolar II disorder: Outpatient diagnosis is bipolar disorder type II; continue home doses of escitalopram, gabapentin, clonidine, clonazepam, and trazodone. He would likely benefit from a mood stabilizer, but is too agitated to discuss this today. -We have requested outpatient records from those diagnostics but have not yet received them. Spoke with his psychiatrist yesterday to coordinate care, he recommended inpatient treatment. -Ms. Rosangela shea can be contacted to initiate the bed search once patient is medically stable for transfer to a behavioral health unit. He will need to have passed the foreign objects, be ambulatory, eating and drinking, and tending to ADLs independently. He noted a request for [facility]. (3) Impulse control disorder, unspecified: Patient with ongoing anger outbursts, unclear if secondary to poorly controlled bipolar disorder, impulse control disorder, or antisocial personality disorder. Patient uncooperative with assessment today, focused on his anger and multiple complaints. (4) Personality disorder, unspecified: Patient has been verbally assaulting staff, aggressive, and threatening at times. He was advised both patient rights and responsibilities, expectations for respectful behavior, and risk of criminal charges if he is violent or threatens violence. -Recommend staff keep consistent boundaries with him, leave the room if patient is unable to maintain behavioral control and speak respectfully, and contact police to press criminal charges if he assaults staff or threatens to harm them. -Antisocial traits noted, history of inpatient treatment at [facility] Interval History Identifying Information 44-year-old male with history of bipolar type II, generalized anxiety disorder, and personality disorder NOS who is admitted after swallowing 3 razor blades in the context of medication nonadherence and hallucinations he is seen today for follow-up. Chief Complaint "I want my chart, nah....". Subjective Subjective Patient was seen & assessed and interval progress reviewed with the psychiatric liaison nurse and floor nurse. Per EMR, he has been belligerent with staff, swearing and name-calling, and threatening. He has been verbally abusive to multiple staff and uncooperative with treatment. He was seen by surgery this morning, who noted that the 2 remaining razor blades are moving through his colon, no indication for the surgery. Patient was seen with one-to-one staff present as well as his floor nurse, given history of threatening and aggressive behavior. He was argumentative, demanding "my chart," interrupting when a ttempting to explain the process for requesting his records. Attempted to clarify what questions he has about his records, but he was unable to clarify a question. He accused hospital staff of violating HIPAA by talking to his outpatient psychiatrist. Advised him that he agreed to allow communication with his outpatient psychiatrist, and that habit does not prevent discussion of his care with an active outpatient provider, and that in fact it was very important for us to involve his outpatient psychiatrist given his unstable psychiatric symptoms which led to self-harm and this hospitalization. He then stated that he was going home and demanded to be discharged. He said he would be leaving "at the end of my 72-hour hold." Attempted to explain that he is not on a "72- hour hold," but that he is on a 302 warrant and that there are recommendations for inpatient psychiatric treatment, once he is medically stable. Advised that he will not be medically stable until he passes the remaining 2 razor blades. He angrily says no one is treating him, no one is helping him, and he thinks that the 2 razor blade should be surgically removed. When advised that this is not indicated, he says he knows it is because he has had it done before, and calls me a liar. Reviewed what will happen once he is medically stable for transfer to a psychiatric unit, that a delegate from the critical access hospital will come and make referrals for inpatient treatment. He states that he will not go to several facilities because they will not give him "my benzos," but says that he would like to go to "[facility]," and was disparaging when attempting to clarify which hospital that was. He makes numerous denigrating statements about hospital staff and the care he is receiving. Made comments that he can "say whatever I want,"" you guys have to treat me." Advised the patient that while he has rights as a patient, he also has responsibilities, which includes treating staff with respect, not swearing at them, calling names, or making threats. He was encouraged to work with staff and to treat them respectfully, and clearly indicated he did not intend to do this. He was also advised that if he threatens to harm others or engages in violent behavior towards others, that criminal charges can be pressed. Procedures Performed Operation Date: 12/28/19 00:30 Actual Procedures p Esophagogastroduodenoscopy - Timmy Matias DO Operation Date: 12/28/19 09:40 Actual Procedures p Esophagogastroduodenoscopy(Not Applicable) - Andi Man MD Physical Exam Psychiatric Orientation: alert; + uncooperative Apperance: appropriately dressed Poor dentition Eye Contact: + poor eye contact Reclining in bed in no acute distress Loud, pressured, interrupting Affect: + irritable affect and + angry affect Thought Process: + looseness of associations Jumping from topic to topic Thought Content: + preoccupation (With his list of grievances and complaint) Estimated Intelligence: + below average estimated intelligence Insight: + poor insight Judgement: + poor judgement Vital Signs (Past 24 Hours) Last Vital Signs Temp 36.4 C L 12/30/19 03:28 Pulse 58 L 12/30/19 07:34 Resp 16 12/30/19 03:28 BP 146/84 H 12/30/19 03:28 Pulse Ox 96 12/30/19 03:28 [facility] & [facility] Laboratory Results Laboratory Results - last 24 hr 12/27/19 12/30/19 21:15 06:58 WBC 8.31 RBC 4.80 Hgb 13.9 L Hct 44.3 MCV 92.3 MCH 29.0 MCHC 31.4 L RDW Std Deviation 47.1 H RDW Coeff of Tobias 14.0 Plt Count 212 MPV 11.7 H Immature Gran % (Auto) 0.5 Neut % (Auto) 59.7 Lymph % (Auto) 27.0 [place] % (Auto) 10.0 Eos % (Auto) 2.6 Baso % (Auto) 0.2 Neut # (Auto) 4.96 Lymph # (Auto) 2.24 [place] # (Auto) 0.83 H Eos # (Auto) 0.22 Baso # (Auto) 0.02 Immature Gran # (Auto) 0.04 H U Marijuana THC Carboxy 1010 H Drug Screen Comment SEE NOTE Current Inpatient Medications Current Inpatient Medications: Current Inpatient Medications Clonazepam (Clonazepam 1 Mg Tab) 1 mg PO TID [facility] Stop: 01/27/20 13:59 Last Admin: 12/30/19 08:23 Dose: 1 mg Documented by: Clonidine HCl (Clonidine Hcl 0.1 Mg Tab) 0.1 mg PO HS [facility] Stop: 01/27/20 20:59 Last Admin: 12/29/19 20:17 Dose: 0.1 mg Documented by: Escitalopram Oxalate (Escitalopram Oxalate 20 Mg Tab) 20 mg PO DAILY [facility] Stop: 01/27/20 09:29 Last Admin: 12/30/19 08:17 Dose: 20 mg Documented by: Gabapentin (Gabapentin 600 Mg Tab) 600 mg PO TID [facility] Stop: 01/27/20 09:59 Last Admin: 12/30/19 08:17 Dose: 600 mg Documented by: Haloperidol Lactate (Haloperidol Lactate 5 Mg/Ml 1 Ml Vial) 5 mg IM Q6H PRN PRN Reason: Agitation Stop: 01/27/20 16:55 Hydromorphone HCl (Hydromorphone Inj 1 Mg/Ml Syringe) 1 mg IV Q2H PRN PRN Reason: Severe Pain Stop: 01/11/20 11:28 Last Admin: 12/30/19 10:00 Dose: 1 mg Documented by: Potassium Chloride/Sodium Chloride (Normal Saline W/20 Meq Kcl) 20 meq in 1,000 mls @ 100 mls/hr IV .Q10H [facility] Stop: 01/27/20 03:42 Last Admin: 12/30/19 05:30 Dose: 100 mls/hr Documented by: Lorazepam (Ativan) 1 mg in 2 mls @ 0.5 mls/min IV Q6H PRN PRN Reason: Agitation Stop: 01/27/20 18:08 Miscellaneous (Remove Nicoderm Patch) 1 ea N/A DAILY@0859 [facility] Stop: 01/28/20 08:58 Last Admin: 12/30/19 08:23 Dose: 1 ea Documented by: Nicotine (Nicotine 21 Mg/24 Hr Tdsy) 21 mg TD QAM [facility] Stop: 01/27/20 18:14 Last Admin: 12/30/19 08:18 Dose: 21 mg Documented by: Ondansetron HCl (Ondansetron Inj 2 Mg/Ml 2 Ml Vial) 4 mg IV Q6H PRN PRN Reason: Nausea Stop: 01/27/20 03:42 Perphenazine (Perphenazine 2 Mg Tablet) 12 mg PO DAILY BRYAN Stop: 01/28/20 14:59 Last Admin: 12/30/19 08:16 Dose: 12 mg Documented by: Trazodone HCl (Trazodone Hcl 50 Mg Tab) 50 mg PO HS [facility] Stop: 01/27/20 20:59 Last Admin: 12/29/19 20:17 Dose: 50 mg Documented by: Mental Health & Subst Abuse Tx Psychiatrist Name of Psychiatrist: Dr. Samaniego @ [facility] Psychiatrist's Date of Appointment with Psychiatrist: 01/10/20 Time of Appointment with Psychiatrist: 8:40 Psychiatric Appointment Comment: with the nurse Psychiatrist Release of Information: Obtained, Reviewed and Signed (1) Ingestion of foreign body Encounter type: initial encounter Qualified Code(s): T18.9XXA - Foreign body of alimentary tract, part unspecified, initial encounter
[2019-12-30] MEDS ORDERED: POLYETHYLENE (MIRALAX) 17 GM PACK PO ONE ×2 (14:00→19:22)
[2019-12-30] MEDS ORDERED: PERPHENAZINE 2 MG TABLET PO SCH (15:00)
--- NOTE | 2019-12-30 17:53 | XRay Report ---
KUB HISTORY: Follow up study in a patient with foreign body ingestion screen for razor blade passage COMPARISON: KUB of same day at 6:48 AM FINDINGS: Nonobstructive bowel gas pattern. 2 metallic density foreign bodies compatible with patient history of ingested razor blades project over the abdominal right upper quadrant within the expected location of the transverse colon. Mild to moderate fecal retention. No renal calculi. No ureteral c alculi. No pneumoperitoneum or pneumatosis. No fracture. IMPRESSION: 2 metallic density foreign bodies project over the abdominal right upper quadrant within the expected location of the transverse colon. ACT 112: Negative or not required by law. The above report was generated using voice recognition software. It may contain grammatical, syntax o r spelling errors. Electronically signed by: Jayden Barone M.D. 12/30/2019 5:52 PM
--- NOTE | 2019-12-30 19:25 | Billing Data ---
Date of Service December 30, 2019 Coding Level of Care Code 21095 Subseq Hosp Care Lvl 3
[2019-12-30] MEDS: cloNIDine HCL 0.1 MG TAB PO SCH (20:05)
[2019-12-30] MEDS: traZODone HCL 50 MG TAB PO SCH (21:57)
[2019-12-31] MEDS: HYDROmorphone INJ 1 MG/ML SYRINGE IV PRN ×12 (00:01→22:14)
[2019-12-31] MEDS: NSS + 20MEQ KCL 20 MEQ/1,000 ML BAG IV SCH ×2 (01:18→11:32)
--- NOTE | 2019-12-31 06:31 | Hospitalist Progress Note ---
Date of Service December 31, 2019 Assessment & Plan (1) Ingestion of foreign body: Patient is a 44 year old male with PMHx personality disorder, impulse control disorder, depression, visual and auditory hallucinations who presented initially after a suicide attempt secondary to swallowing razor blades. Suicide Attempt secondary to Foreign Body Ingestion -Per chart review patient had noted auditory and visual hallucinations that instructed him to swallow razor blades. -In the ED XR's revealed 3 radiopaque foreign bodies consistent with razor blades. -Patient underwent EGD with Dr. Matias on admission, but was unable to remove the razor blades secondary to significant portion of food debris. -General Surgery consulted, no plans for surgical operations at this time as patient has no signs of perforation presently -Would recommend CT scan prior if further localization needed. -At this time does not believe for signs of surgical intervention. -Patient underwent EGD with Dr. Man 12/28/19 who was able to remove 1 of the 3 razor blades, the blade was wrapped in tape. -Psychiatry consulted, appreciate recommendations -Patient currently 302'd, not safe to leave on his own -Plans for inpatient psychiatric treatment once medically stable -- Patient prefers [facility] -Spoke with Dr. Michael who noted that patient does have a history of Bipolar Disorder, but at this time does not believe he is in a manage or psychotic episode -As such, believes patient is aware of what he is doing and should he harm staff, can be held responsible. -Of note, patients tox screen was positive for THC on admission. -Dilaudid 1mg q2h PRN for pain -- consider reduction with movement of razor blades to the transverse colon with lessened likelihood of perforation. -Serial abdominal exams to screen for perforation -See attending attestation on note from 12/28/19 in regards to patients Code Minor incident. -Will continue Haldol 5mg q6h PRN and Ativan 1mg q6h PRN for further cases of aggression. -Gave miralax yesterday evening to help promote bowel movement -- bowel movement overnight without signs of the razor blades in question -Will give another 3 doses of miralax this AM, patient refusing KUB until after having bowel movements. Depression -Continue patients home Lexapro 20mg -Continue Klonopin 1mg TID -Continue Catapres 0.1mg HS -Continue Neurontin 600mg TID -Continue Trazodone 50mg HS -Continue Perphenazine 12mg QD -Plans for inpatient psychiatric treatment once medically cleared. Dispo: PCU FEN: Safe Tray regular diet, NSS +20meq KCl @100ml/hr DVT: Low Risk Code: Full Admission and Anticipated Discharge Date Admission Date: December 28, 2019 Supervising Physician Co-Signing Physician Notes I personally examined the patient and verified all barajas points of history and exam, discussed case, and agree with decision making with Dr Olea. pain controlled w pain meds. small BM. discussed trying to use other pain meds to augment effects of dilauded to alloww for more spacing between doses but ntoes that he can't really take much as far as other pain meds "because of my liver" vitals noted nad heent nc at mmm breathing unlabored no accessory muscles good effort skin no rashes no pallor or icterus neuro no focal deficits. abd soft mild distention but nontender no guarding no rebound no rigidity. razor blade ingestion - one retrieved, was taped. pt claims other two were as well - so hopefully will pass without incident - need to watch closely, serial KUB, serial exam as best he'll allow. exams have been reassuring. would like to space pain meds more but difficult balance at this point - while razor blades are in intestine, no doubt they can cause significant pain - would be helpful for GI transit to be able to augment with other pain meds that would allow for better spacing of dilauded but he notes can't take/tolerate. concern on just weaning pain meds while razor blades are still present given his explosiveness - might create a needless escalation of situation when there is clear point at which cessation of the dilauded would be clearly rational (ie when he passes razor blades). gently encouraging BM w repeated dosing of miralax - spaced enough so as not to create a significant triston type effect. if any s/s peritonitis/perforation - then surgery on case as backup. psych input appreciated as regards to 302/etc. otherwise as above Subjective Patient more agreeable to exam this AM. Noted he had a bowel movement the night prior without expulsion of the remaining razor blades. States this AM he is still having abdominal pain around the upper mid to upper L quadrants. Review of Systems Gastrointestinal: + abdominal pain Physical Exam Constitutional: well developed and well nourished Respiratory: normal respiratory effort, lungs clear to auscultation Cardiovascular: RRR, no murmur, no edema Gastrointestinal (Abdomen): Inspection/Auscultation: abdomen normal to inspection and normal bowel sounds; abdomen not distended Patient would now allow for palpation of the abdomen, though with gentle palpation of stethoscope no tenderness elicited. Results & Data Results & Data ([facility]) Vital Signs (Past 12 Hours) Vital Signs Temp Pulse Pulse Resp BP Pulse Ox 12/31/19 04:00 36.4 C L 57 L 16 144/94 H 98 12/30/19 23:25 56 L 12/30/19 23:11 36.3 C L 55 L 16 146/88 H 97 Resident Activity Tracking Resident Involvement: Resident Care Provided Care Provided: Adult Hospital Medicine (1) Ingestion of foreign body Encounter type: initial encounter Qualified Code(s): T18.9XXA - Foreign body of alimentary tract, part unspecified, initial encounter
[2019-12-31] MEDS: clonazePAM 1 MG TAB PO SCH ×3 (07:44→20:15)
[2019-12-31] MEDS: NICOTINE 21 MG/24 HR TDSY TD SCH (07:44)
[2019-12-31] MEDS: ESCITALOPRAM OXALATE 20 MG TAB PO SCH (07:45)
[2019-12-31] MEDS: GABAPENTIN 600 MG TAB PO SCH ×3 (07:45→20:15)
[2019-12-31] MEDS: PERPHENAZINE 2 MG TABLET PO SCH (07:45)
[2019-12-31] MEDS ORDERED: POLYETHYLENE (MIRALAX) 17 GM PACK PO STA ×2 (08:25→17:33)
[2019-12-31 15:18] LABS: Basophils # (auto) 0.02 K/uL (0-0.2); Basophils % (auto) 0.3 %; Eosinophils # (auto) 0.37 K/uL (0-0.5); Hematocrit (blood only) 43.8 % (42-52); Hemoglobin 14.5 g/dL (14.0-18.0); Immature Granulocytes # (auto) 0.02 K/uL (0.00-0.02); Immature Granulocytes % (auto) 0.3 %; Lymphocytes # (auto) 1.34 K/uL (1.2-3.4); Mean Corpuscular Hemoglobin 29.4 pg (25-34); Mean Corpuscular Hgb Conc 33.1 g/dL (32-36); Mean Corpuscular Volume 88.7 fL (80-100); Mean Platelet Volume 10.8 fL (7.4-10.4); Monocytes # (auto) 0.74 K/uL (0.11-0.59); Monocytes % (auto) 9.9 %; Neutrophils # (auto) 4.95 K/uL (1.4-6.5); Neutrophils % (auto) 66.5 %; Platelet Count 191 K/uL (130-400); RDW Coefficient of Variation 13.4 % (11.5-14.5); RDW Standard Deviation 43.8 fL (36.4-46.3); Red Blood Count 4.94 M/uL (4.7-6.1); White Blood Count 7.44 K/uL (4.8-10.8)
--- NOTE | 2019-12-31 18:25 | Billing Data ---
Date of Service December 31, 2019 Coding Level of Care Code 96665 Subseq Hosp Care Lvl 3
[2019-12-31] MEDS: POLYETHYLENE (MIRALAX) 17 GM PACK PO SCH (20:16)
[2019-12-31] MEDS: cloNIDine HCL 0.1 MG TAB PO SCH (20:16)
[2019-12-31] MEDS: traZODone HCL 50 MG TAB PO SCH (22:11)
[2020-01-01] MEDS: HYDROmorphone INJ 1 MG/ML SYRINGE IV PRN ×6 (02:07→21:44)
[2020-01-01] MEDS: clonazePAM 1 MG TAB PO SCH ×3 (08:31→20:28)
[2020-01-01 08:32] LABS: Basophils # (auto) 0.02 K/uL (0-0.2); Basophils % (auto) 0.2 %; Eosinophils # (auto) 0.59 K/uL (0-0.5); Eosinophils % (auto) 6.3 %; Hematocrit (blood only) 49.4 % (42-52); Hemoglobin 16.6 g/dL (14.0-18.0); Immature Granulocytes # (auto) 0.05 K/uL (0.00-0.02); Immature Granulocytes % (auto) 0.5 %; Lymphocytes # (auto) 1.92 K/uL (1.2-3.4); Lymphocytes % (auto) 20.6 %; Mean Corpuscular Hgb Conc 33.6 g/dL (32-36); Mean Corpuscular Volume 89.2 fL (80-100); Mean Platelet Volume 10.8 fL (7.4-10.4); Monocytes # (auto) 0.53 K/uL (0.11-0.59); Monocytes % (auto) 5.7 %; Neutrophils # (auto) 6.22 K/uL (1.4-6.5); Neutrophils % (auto) 66.7 %; Platelet Count 216 K/uL (130-400); RDW Coefficient of Variation 13.5 % (11.5-14.5); RDW Standard Deviation 44.3 fL (36.4-46.3); Red Blood Count 5.54 M/uL (4.7-6.1); White Blood Count 9.33 K/uL (4.8-10.8)
[2020-01-01] MEDS: GABAPENTIN 600 MG TAB PO SCH ×3 (08:32→20:28)
[2020-01-01] MEDS: PERPHENAZINE 2 MG TABLET PO SCH (08:32)
[2020-01-01] MEDS: ESCITALOPRAM OXALATE 20 MG TAB PO SCH (08:34)
[2020-01-01] MEDS: NICOTINE 21 MG/24 HR TDSY TD SCH (08:34)
--- NOTE | 2020-01-01 08:53 | Hospitalist Progress Note ---
Date of Service January 01, 2020 Assessment & Plan (1) Ingestion of foreign body: Patient is a 44 year old male with PMHx personality disorder, impulse control disorder, depression, visual and auditory hallucinations who presented initially after a suicide attempt secondary to swallowing razor blades. Suicide Attempt secondary to Foreign Body Ingestion: -Per chart review patient had noted auditory and visual hallucinations that instructed him to swallow razor blades. -In the ED XR's revealed 3 radiopaque foreign bodies consistent with razor blades. -Patient underwent EGD with Dr. Matias on admission, but was unable to remove the razor blades secondary to significant portion of food debris. -General Surgery consulted, no plans for surgical operations at this time as patient has no signs of perforation presently -Would recommend CT scan prior if further localization needed. -At this time does not believe for signs of surgical intervention. -Patient underwent EGD with Dr. Man 12/28/19 who was able to remove 1 of the 3 razor blades, the blade was wrapped in tape. -Psychiatry consulted, appreciate recommendations -Patient currently 302'd, not safe to leave on his own -Plans for inpatient psychiatric treatment once medically stable; Patient a greeable and prefers [facility] -Spoke with Dr. Michael who noted that patient does have a history of Bipolar Disorder, but at this time does not believe he is in a manage or psychotic e pisode. As such, believes patient is aware of what he is doing and should he harm staff, can be held responsible. -Dilaudid 1mg q6h PRN for severe pain -Serial abdominal exams to screen for perforation -Will continue Haldol 5mg q6h PRN and Ativan 1mg q6h PRN for further cases of aggression. Depression: -Continue patients home Lexapro 20mg -Continue Klonopin 1mg TID -Continue Catapres 0.1mg HS -Continue Neurontin 600mg TID -Continue Trazodone 50mg HS -Continue Perphenazine 12mg QD -Plans for inpatient psychiatric treatment once medically cleared. Admission and Anticipated Discharge Date Admission Date: December 28, 2019 Supervising Physician Co-Signing Physician Notes I personally examined the patient and verified all barajas points of history and exam, discussed case, and agree with decision making with Dr Hernandez. seen twice - earlier in the day just getting off phone w - happy as they're moving into new house. says that psych contracted for safety and he'll be able to go home when discharged rather than inpatient psych. pain under reasonable control and ok w spacing dilauded to q4hrs so that he can pass razor blades sooner. later angry - dr hernandez had discussed trying to further taper dilauded to q6 and he got immediately angry. has been pleasant to me for days and instead was argumentative and hostile. called dr hernandez several disparaging names both on professional competence and ethnicity suggesting that he should not be allowed in the country. disparaging remarks about the staff as well. notes that the staff is treating him badly because he is a psych patient. he says that it is his right to say what he wants because of the first amendment. i pointed out that his perception of how staff talks to him hurts him, and that possibly he should consider the use of his words on how it would make others feel - but he belligerently fell back to saying hit is his first amendment to say what he wants. i also pointed out that the more he acts erratically the more concerned i am that he will require inpatient psych stay. he also noted that it is his right to act this way. i pointed out that he is only causing himself harm and that it is like him saying that he has a right to bang his head against the wall, to which unfortunately he replied that he did have the right to bang his head against the wall. refused further bowel meds without pain meds. vitals noted nad first visit no physical distress but angry and agitated second visit heent nc at mmm breathing unlabored no accessory muscles good effort skin no rashes no pallor or icterus abd soft mild distention mild L sided abdominal tenderness no guarding no rebound no rigidity. ext no cyanosis razorblade ingestion - thus far no perforation. gentle miralax. trying to wean narcotics to strike balance between pain control and not slowing motility too much. considered relistor but risk for contraction--> perforation might be too much. continue to follow clinically, Xrays as he allows. erratic behavior/anger/impulse control issues - doesn't appear responding to external stimuli right now (have been following for that since a shadowy figure was part of his HPI, but nothing apparent at this time), just mostly seems narrowly focused on what he wants right now - behaviors really almost edgardo to a temper tantrum. discussed how he is acting is not acceptable - reminded him that i have been in his corner the whole time he has been here and we have gotten along well. is a difficult balance - certainly razor blades (even taped) are likely quite uncomfortable, but dilauded obviously slows bowels considerably, and he does more or less take the medication [id number] when prn. spaced to q4 without incident earlier today - but further spacing seems to have incited anger and bigger erratic behavior. d/w psych liaison - they're not actually aware of what he was telling me about no longer needing to go to inpt psych and would recommend not allowing him to leave AMA still - and since he got agitated to where he needed to be physically and chemically restrained just a few nights ago - and razor blades are moving forward - balance seems that pain meds q4 for now and continuing to give miralax as he allows might be the best in keeping him from harming himself with belligerence and agitation otherwise as above Subjective Patient had a fairly large bowel movement this morning, did not notice a razor blade having been passed but feels like his pain has much improved over the last couple days. Does continue to indorse some pain that has been present since ingestion of the razor blades but this has remained unchanged. Is tolerating oral intake without problems, and attempting to drink coffee to allow himself to clear his bowels a little better. Has been thinking about everything that happened leading up to his swallowing of the blades, and has decided that it is best for him to go to an inpatient rehab/treatment center to get himself right again. Denies current SI/HI. Review of Systems Review of Systems: All systems reviewed & are unremarkable except as noted in Subjective Physical Exam Constitutional: WD/WN, vitals as above Eyes: PERRL, conjunctivae normal, anicteric sclerae Respiratory: normal respiratory effort, lungs clear to auscultation Cardiovascular: Rate/Rhythm: regular rate and regular rhythm Heart Sounds: no gallop, no murmur and no cardiac rub Vessels: normal peripheral pulses Extremities: no calf tenderness and no pedal edema Gastrointestinal (Abdomen): Percussion/Palpation: abdomen soft; abdomen nontender, no guarding, abdomen not rigid, no hepatosplenomegaly, no hernia, no abdominal mass and no dullness to percussion Psychiatric: Orientation: alert, oriented x 3 and cooperative Results & Data Results & Data ([facility]) Vital Signs (Past 12 Hours) Vital Signs Temp Pulse Pulse Pulse Resp BP BP 01/01/20 07:25 36.6 C 62 16 138/90 01/01/20 04:13 36.5 C 60 15 144/91 H 01/01/20 00:06 71 12/31/19 22:57 36.5 C 56 L 18 137/87 Pulse Ox 01/01/20 07:25 93 01/01/20 04:13 94 01/01/20 00:06 12/31/19 22:57 97 Laboratory Results 01/01/20 01/01/20 12/31/19 Range/Units 08:20 08:20 15:05 WBC 9.33 7.44 (4.8-10.8) K/uL RBC 5.54 4.94 (4.7-6.1) M/uL Hgb 16.6 14.5 (14.0-18.0) g/dL Hct 49.4 43.8 (42-52) % MCV 89.2 88.7 (80-100) fL MCH 30.0 29.4 (25-34) pg MCHC 33.6 33.1 (32-36) g/dL RDW Std Deviation 44.3 43.8 (36.4-46.3) fL RDW Coeff of Tobias 13.5 13.4 (11.5-14.5) % Plt Count 216 191 (130-400) K/uL MPV 10.8 H 10.8 H (7.4-10.4) fL Immature Gran % (Auto) 0.5 0.3 % Neut % (Auto) 66.7 66.5 % Lymph % (Auto) 20.6 18.0 % [place] % (Auto) 5.7 9.9 % Eos % (Auto) 6.3 5.0 % Baso % (Auto) 0.2 0.3 % Neut # (Auto) 6.22 4.95 (1.4-6.5) K/uL Lymph # (Auto) 1.92 1.34 (1.2-3.4) K/uL [place] # (Auto) 0.53 0.74 H (0.11-0.59) K/uL Eos # (Auto) 0.59 H 0.37 (0-0.5) K/uL Baso # (Auto) 0.02 0.02 (0-0.2) K/uL Immature Gran # (Auto) 0.05 H 0.02 (0.00-0.02) K/uL Sodium 138 (136-145) mmol/L Potassium 4.1 (3.5-5.1) mmol/L Chloride 102 (98-107) mmol/L Carbon Dioxide 34 H (21-32) mmol/L Anion Gap 2.0 L (3-11) BUN 6 L (7-18) mg/dl Creatinine 1.10 (0.6-1.4) mg/dl Est Cr Clr Drug Dosing 96.8 ml/min Est GFR ( Amer) 94.1 Est GFR (Non-Af Amer) 81.2 BUN/Creatinine Ratio 5.5 L (10-20) Glucose 98 (70-99) mg/dl Calcium 9.3 (8.5-10.1) mg/dl Medications Administered Current Inpatient Medications Clonazepam (Clonazepam 1 Mg Tab) 1 mg PO TID BRYAN Stop: 01/27/20 13:59 Last Admin: 01/01/20 08:31 Dose: 1 mg Documented by: Clonidine HCl (Clonidine Hcl 0.1 Mg Tab) 0.1 mg PO HS BRYAN Stop: 01/27/20 20:59 Last Admin: 12/31/19 20:16 Dose: 0.1 mg Documented by: Escitalopram Oxalate (Escitalopram Oxalate 20 Mg Tab) 20 mg PO DAILY BRYAN Stop: 01/27/20 09:29 Last Admin: 01/01/20 08:34 Dose: 20 mg Documented by: Gabapentin (Gabapentin 600 Mg Tab) 600 mg PO TID BRYAN Stop: 01/27/20 09:59 Last Admin: 01/01/20 08:32 Dose: 600 mg Documented by: Haloperidol Lactate (Haloperidol Lactate 5 Mg/Ml 1 Ml Vial) 5 mg IM Q6H PRN PRN Reason: Agitation Stop: 01/27/20 16:55 Hydromorphone HCl (Hydromorphone Inj 1 Mg/Ml Syringe) 1 mg IV Q4H PRN PRN Reason: Severe Pain Stop: 01/11/20 11:28 Lorazepam (Ativan) 1 mg in 2 mls @ 0.5 mls/min IV Q6H PRN PRN Reason: Agitation Stop: 01/27/20 18:08 Miscellaneous (Remove Nicoderm Patch) 1 ea N/A DAILY@0859 [facility] Stop: 01/28/20 08:58 Last Admin: 01/01/20 08:34 Dose: 1 ea Documented by: Nicotine (Nicotine 21 Mg/24 Hr Tdsy) 21 mg TD QAM BRYAN Stop: 01/27/20 18:14 Last Admin: 01/01/20 08:34 Dose: 21 mg Documented by: Ondansetron HCl (Ondansetron Inj 2 Mg/Ml 2 Ml Vial) 4 mg IV Q6H PRN PRN Reason: Nausea Stop: 01/27/20 03:42 Perphenazine (Perphenazine 2 Mg Tablet) 12 mg PO DAILY BRYAN Stop: 01/28/20 14:59 Last Admin: 01/01/20 08:32 Dose: 12 mg Documented by: Polyethylene Glycol (Polyethylene (Miralax) 17 Gm Pack) 17 gm PO BID BRYAN Stop: 01/30/20 20:59 Last Admin: 01/01/20 08:58 Dose: Not Given Documented by: Trazodone HCl (Trazodone Hcl 50 Mg Tab) 50 mg PO HS BRYAN Stop: 01/27/20 20:59 Last Admin: 12/31/19 22:11 Dose: 50 mg Documented by: Resident Activity Tracking Resident Involvement: Resident Care Provided Care Provided: Adult Hospital Medicine (1) Ingestion of foreign body Encounter type: initial encounter Qualified Code(s): T18.9XXA - Foreign body of alimentary tract, part unspecified, initial encounter
[2020-01-01] MEDS ORDERED: HYDROmorphone INJ 1 MG/ML SYRINGE IV PRN ×2 (08:57→15:51)
[2020-01-01] MEDS: POLYETHYLENE (MIRALAX) 17 GM PACK PO SCH (08:58)
--- NOTE | 2020-01-01 09:35 | XRay Report ---
KUB HISTORY: Follow up study in a patient with foreign body ingestion screen for razor blades COMPARISON: KUB 12/30/2019 FINDINGS: The 2 linear opaque foreign bodies now project within the abdominal left upper quadrant in the expected location of the mid to distal transverse colon. Moderate fecal retention. Nonobstructive bowel gas pattern. No renal calculi. No ureteral calculi. No pneumoperitoneum or pneumatosis. No fr acture. IMPRESSION: The 2 linear metallic density foreign bodies are now present within the mid to distal transverse colo n. ACT 112: Negative or not required by law. The above report was generated using voice recognition software. It may contain grammatical, syntax o r spelling errors. Electronically signed by: Jayden Barone M.D. 01/01/2020 9:34 AM
[2020-01-01 09:40] LABS: BUN Creatinine Ratio 5.5 (10-20); Calcium 9.3 mg/dl (8.5-10.1); Creatinine Clr Calc Pharmacy 96.8 ml/min; Est GFR (African American) 94.1; Est GFR (Non-African American) 81.2; Potassium 4.1 mmol/L (3.5-5.1)
--- NOTE | 2020-01-01 12:32 | Surgery Progress Note ---
Date of Service doing fine, no significant abdominal pain, passed BM, not pass FB yet, January 01, 2020 Assessment & Plan Admission and Anticipated Discharge Date Admission Date: December 28, 2019 Supervising Physician Co-Signing Physician Notes I personally examined the patient and verified all barajas points of history and exam, discussed case, and agree with decision making with Dr Olea. pain controlled w pain meds. small BM. discussed trying to use other pain meds to augment effects of dilauded to alloww for more spacing between doses but ntoes that he can't really take much as far as other pain meds "because of my liver" vitals noted nad heent nc at mmm breathing unlabored no accessory muscles good effort skin no rashes no pallor or icterus neuro no focal deficits. abd soft mild distention but nontender no guarding no rebound no rigidity. razor blade ingestion - one retrieved, was taped. pt claims other two were as well - so hopefully will pass without incident - need to watch closely, serial KUB, serial exam as best he'll allow. exams have been reassuring. would like to space pain meds more but difficult balance at this point - while razor blades are in intestine, no doubt they can cause significant pain - would be helpful for GI transit to be able to augment with other pain meds that would allow for better spacing of dilauded but he notes can't take/tolerate. concern on just weaning pain meds while razor blades are still present given his explosiveness - might create a needless escalation of situation when there is clear point at which cessation of the dilauded would be clearly rational (ie when he passes razor blades). gently encouraging BM w repeated dosing of miralax - spaced enough so as not to create a significant triston type effect. if any s/s peritonitis/perforation - then surgery on case as backup. psych input appreciated as regards to 302/etc. otherwise as above 01/01/2020 12:33PM stable, no significant abdominal pain, FB in transverse colon, no perforation signs, continue treatment will F/U Subjective Patient had a fairly large bowel movement this morning, did not notice a razor blade having been passed but feels like his pain has much improved over the last couple days. Does continue to indorse some pain that has been present since ingestion of the razor blades but this has remained unchanged. Is tolerating oral intake without problems, and attempting to drink coffee to allow himself to clear his bowels a little better. Has been thinking about everything that happened leading up to his swallowing of the blades, and has decided that it is best for him to go to an inpatient rehab/treatment center to get himself right again. Denies current SI/HI. Physical Exam Constitutional: WD/WN, vitals as above well developed and well nourished Eyes: PERRL, conjunctivae normal, anicteric sclerae ENMT: external ear and nose normal, oropharynx normal Neck: trachea midline, no thyromegaly Respiratory: normal respiratory effort, lungs clear to auscultation Cardiovascular: RRR, no murmur, no edema Rate/Rhythm: regular rate and regular rhythm Gastrointestinal (Abdomen): Percussion/Palpation: abdomen soft mild tenderness at LUQ, no rebound pain, no distend, BS + Musculoskeletal: no cyanosis or clubbing, extremities motor strength 5/5 Skin: no rashes, warm and dry Neurologic: awake Psychiatric: Orientation: alert and oriented x 3 Results & Data ([facility]) Vital Signs (Past 12 Hours) Vital Signs Temp Pulse Resp BP BP Pulse Ox 01/01/20 11:00 36.4 C L 67 16 138/94 93 01/01/20 07:25 36.6 C 62 16 138/90 93 01/01/20 04:13 36.5 C 60 15 144/91 H 94 Diagnostic Findings KUB HISTORY: Follow up study in a patient with foreign body ingestion screen for razor blades COMPARISON: KUB 12/30/2019 FINDINGS: The 2 linear opaque foreign bodies now project within the abdominal left upper quadrant in the expected location of the mid to distal transverse colon. Moderate fecal retention. Nonobstructive bowel gas pattern. No renal calculi. No ureteral calculi. No pneumoperitoneum or pneumatosis. No fracture. IMPRESSION: The 2 linear metallic density foreign bodies are now present within the mid to distal transverse colon.
[2020-01-01] MEDS ORDERED: POLYETHYLENE (MIRALAX) 17 GM PACK PO SCH (18:00)
--- NOTE | 2020-01-01 18:08 | Billing Data ---
Date of Service January 01, 2020 Coding Level of Care Code 03778 Subseq Hosp Care Lvl 3
[2020-01-01] MEDS ORDERED: POLYETHYLENE (MIRALAX) 17 GM PACK PO ONE (18:15)
[2020-01-01] MEDS: traZODone HCL 50 MG TAB PO SCH (20:29)
[2020-01-01] MEDS: cloNIDine HCL 0.1 MG TAB PO SCH (20:32)
[2020-01-02] MEDS: HYDROmorphone INJ 1 MG/ML SYRINGE IV PRN ×3 (01:47→10:16)
[2020-01-02] MEDS: clonazePAM 1 MG TAB PO SCH ×3 (08:33→22:10)
[2020-01-02] MEDS: PERPHENAZINE 2 MG TABLET PO SCH (08:34)
[2020-01-02] MEDS: GABAPENTIN 600 MG TAB PO SCH ×3 (08:35→22:10)
[2020-01-02] MEDS: ESCITALOPRAM OXALATE 20 MG TAB PO SCH (08:35)
[2020-01-02] MEDS: NICOTINE 21 MG/24 HR TDSY TD SCH (08:36)
[2020-01-02] MEDS: POLYETHYLENE (MIRALAX) 17 GM PACK PO SCH ×2 (08:46→22:31)
--- NOTE | 2020-01-02 09:07 | Surgery Progress Note ---
Date of Service pt is stable, not pass FB yet, no significant abdominal pain, no fever, January 02, 2020 Assessment & Plan (1) Ingestion of foreign body: Admission and Anticipated Discharge Date Admission Date: 01/02/2020 9:11AM stable, not pass FB yet, KUB will F/U Supervising Physician Co-Signing Physician Notes I personally examined the patient and verified all barajas points of history and exam, discussed case, and agree with decision making with Dr Hernandez. seen twice - earlier in the day just getting off phone w - happy as they're moving into new house. says that psych contracted for safety and he'll be able to go home when discharged rather than inpatient psych. pain under reasonable control and ok w spacing dilauded to q4hrs so that he can pass razor blades sooner. later angry - dr hernandez had discussed trying to further taper dilauded to q6 and he got immediately angry. has been pleasant to me for days and instead was argumentative and hostile. called dr hernandez several disparaging names both on professional competence and ethnicity suggesting that he should not be allowed in the country. disparaging remarks about the staff as well. notes that the staff is treating him badly because he is a psych patient. he says that it is his right to say what he wants because of the first amendment. i pointed out that his perception of how staff talks to him hurts him, and that possibly he should consider the use of his words on how it would make others feel - but he belligerently fell back to saying hit is his first amendment to say what he wants. i also pointed out that the more he acts erratically the more concerned i am that he will require inpatient psych stay. he also noted that it is his right to act this way. i pointed out that he is only causing himself harm and that it is like him saying that he has a right to bang his head against the wall, to which unfortunately he replied that he did have the right to bang his head against the wall. refused further bowel meds without pain meds. vitals noted nad first visit no physical distress but angry and agitated second visit heent nc at mmm breathing unlabored no accessory muscles good effort skin no rashes no pallor or icterus abd soft mild distention mild L sided abdominal tenderness no guarding no rebound no rigidity. ext no cyanosis razorblade ingestion - thus far no perforation. gentle miralax. trying to wean narcotics to strike balance between pain control and not slowing motility too much. considered relistor but risk for contraction--> perforation might be too much. continue to follow clinically, Xrays as he allows. erratic behavior/anger/impulse control issues - doesn't appear responding to external stimuli right now (have been following for that since a shadowy figure was part of his HPI, but nothing apparent at this time), just mostly seems narrowly focused on what he wants right now - behaviors really almost edgardo to a temper tantrum. discussed how he is acting is not acceptable - reminded him that i have been in his corner the whole time he has been here and we have gotten along well. is a difficult balance - certainly razor blades (even taped) are likely quite uncomfortable, but dilauded obviously slows bowels considerably, and he does more or less take the medication [id number] when prn. spaced to q4 without incident earlier today - but further spacing seems to have incited anger and bigger erratic behavior. d/w psych liaison - they're not actually aware of what he was telling me about no longer needing to go to inpt psych and would recommend not allowing him to leave AMA still - and since he got agitated to where he needed to be physically and chemically restrained just a few nights ago - and razor blades are moving forward - balance seems that pain meds q4 for now and continuing to give miralax as he allows might be the best in keeping him from harming himself with belligerence and agitation otherwise as above Subjective Patient had a fairly large bowel movement this morning, did not notice a razor blade having been passed but feels like his pain has much improved over the last couple days. Does continue to indorse some pain that has been present since ingestion of the razor blades but this has remained unchanged. Is tolerating oral intake without problems, and attempting to drink coffee to allow himself to clear his bowels a little better. Has been thinking about everything that happened leading up to his swallowing of the blades, and has decided that it is best for him to go to an inpatient rehab/treatment center to get himself right again. Denies current SI/HI. Physical Exam Constitutional: WD/WN, vitals as above well developed and well nourished Eyes: PERRL, conjunctivae normal, anicteric sclerae ENMT: external ear and nose normal, oropharynx normal Neck: trachea midline, no thyromegaly Respiratory: normal respiratory effort, lungs clear to auscultation Cardiovascular: RRR, no murmur, no edema Rate/Rhythm: regular rate and regular rhythm Gastrointestinal (Abdomen): Percussion/Palpation: abdomen soft NT, ND, BS +, Musculoskeletal: no cyanosis or clubbing, extremities motor strength 5/5 Skin: no rashes, warm and dry Neurologic: awake Psychiatric: Orientation: alert and oriented x 3 Results & Data ([facility]) Vital Signs (Past 12 Hours) Vital Signs Temp Pulse Resp BP Pulse Ox 01/01/20 22:28 36.4 C L 80 15 137/96 91 (1) Ingestion of foreign body Encounter type: initial encounter Qualified Code(s): T18.9XXA - Foreign body of alimentary tract, part unspecified, initial encounter
--- NOTE | 2020-01-02 11:24 | XRay Report ---
KUB HISTORY: Follow up study in a patient with ingested foreign bodies FB in colon COMPARISON: KUB 01/01/2020 FINDINGS: Nonobstructive bowel gas pattern. There is a single radiopaque foreign bodies noted project ing over the midline pelvis No renal calculi. No ureteral calculi. No pneumoperitoneum or pneumatosi s. No fracture. IMPRESSION: 1. Metallic foreign body projected over the rectum may reflect the previously noted razorblade turned on end. Additional foreign body is not identified and may have passed in the interval. 2. Nonobstructive bowel gas pattern without pneumoperitoneum. ACT 112: Negative or not required by law. The above report was generated using voice recognition software. It may contain grammatical, syntax o r spelling errors. Electronically signed by: Jayden Barone M.D. 01/02/2020 11:22 AM
[2020-01-02] MEDS ORDERED: HALOPERIDOL LACTATE 5 MG/ML 1 ML VIAL IM STA (12:18)
[2020-01-02] MEDS ORDERED: LORazepam 2 MG/ML VIAL (IM USE) IM STA (12:25)
[2020-01-02] MEDS ORDERED: HYDROmorphone INJ 0.5 MG/0.5 ML SYR IV PRN (13:55)
--- NOTE | 2020-01-02 13:55 | Hospitalist Progress Note ---
Date of Service January 02, 2020 Assessment & Plan (1) Ingestion of foreign body: Patient is a 44 year old male with PMHx personality disorder, impulse control disorder, depression, visual and auditory hallucinations who presented initially after a suicide attempt secondary to swallowing razor blades. Suicide Attempt secondary to Foreign Body Ingestion: -Per chart review patient had noted auditory and visual hallucinations that instructed him to swallow razor blades. -In the ED XR's revealed 3 radiopaque foreign bodies consistent with razor blades. -Patient underwent EGD with Dr. Matias on admission, but was unable to remove the razor blades secondary to significant portion of food debris. -General Surgery consulted, no plans for surgical operations at this time as patient has no signs of perforation presently -Would recommend CT scan prior if further localization needed. -At this time does not believe for signs of surgical intervention. -Patient underwent EGD with Dr. Man 12/28/19 who was able to remove 1 of the 3 razor blades, the blade was wrapped in tape. -Psychiatry consulted, appreciate recommendations -Patient currently 302'd, not safe to leave on his own -Plans for inpatient psychiatric treatment once medically stable; Patient a greeable and prefers [facility] -Spoke with Dr. Michael who noted that patient does have a history of Bipolar Disorder, but at this time does not believe he is in a manic or psychotic ep isode. As such, believes patient is aware of what he is doing and should he harm staff, can be held responsible. -Dilaudid 0.5mg q12h PRN for severe pain -Second ingestion of two AA batteries demonstrated by MIKAYLA on 01/01 -discussed case with GI production repairer, no emergent need for intervention at this time given low risk with cylindrical battery ingestion Depression: -Continue patients home Lexapro 20mg -Continue Klonopin 1mg TID -Continue Catapres 0.1mg HS -Continue Neurontin 600mg TID -Continue Trazodone 50mg HS -Continue Perphenazine 12mg HS -Plans for inpatient psychiatric treatment once medically cleared. Admission and Anticipated Discharge Date Admission Date: December 28, 2019 Supervising Physician Co-Signing Physician Notes I personally examined the patient and verified all barajas points of history and exam, discussed case, and agree with decision making with Dr Hernandez. seen during code wynne situation - dr hernandez handling situation expertly and so not wanting to risk further escalation i continued to watch and monitor for quite a while, but minimized direct interaction w pt so as not to create risk of escalation. outlined extremely well in dr hernandez' HPI. when pt was escorted back to bed - initial orders for haldol but pt screaming that he was allergic (he had been given haldol earlier in the [facility] from several nights ago - and showed no s/s allergic reaction) but did not want staff to risk being assaulted, and since pt at that point had at least self de-escalated to sitting in bed and being belligerent, i inquired if he would allow ativan to be given -- gave significant dose due to his serious agitation, risk of harm to self/staff, and apparent tolerance to medications. vitals noted nad first visit no physical distress but angry and agitated breathing unlabored absolutely no apparent dyspnea. no pallor or icterus razorblade ingestion - thus far no perforation. 1 of 3 retreived by EGD, 1 appears to have passed, 1 appears in sigmoid/rectum. now also battery ingestion - immediately contacted GI who noted spontaneous passage would be safe. erratic behavior/anger/impulse control issues - see above. agree w additional scheduled anti-psychotics at least for now given his erratic behavior, apparently low threshold to be triggered into very aggressive behavior, and risk to self/staff. would appreciate psych management in this regard otherwise. EKG in AM to follow QT if he'll allow otherwise as above Subjective Patient seen and examined today numerous times due to varying complaints and attempts to leave the hospital despite known 302 involuntary warrant. Initially seen and patient was dismissive and visibly aggravated by staffs attempts to converse with him. Making several statements disparaging staffs sexual orientation, race, ethnicity, and gender. Returned for evaluation at 11am following being called by bedside sitter who stated that patient was getting dressed with the intention to leave. Patient met in hallway by myself and staff encouraging him to return to his room, with the understanding that he still has a retained razor blade despite having had a bowel movement earlier in the day where he felt he had passed the blades. Offered demonstration of x-ray results, patient remained combative, escalatory, and verbally threatening despite attempts to calm situation by myself and [facility] staff. Elysia Minor was called overhead, with patient remaining in hallway and combative with all staff and resistant to attempts to direct him back into his room. Upon arrival of security to scene patient remained verbally aggressive to staff and unwilling to calmly discuss situation in room to prevent further disruption to neighboring patients room as patient remained in hallway. Security manually escorted patient back into his room, where patient proceeded to remain verbally aggressive and combative and verbally threatening to staff, with numerous disparaging remarks made about staff. Predominantly focused on staffs nationality, and sexual orientation. Patient then proceeded to call 911. Patient remained combative and aggressive towards staff. Patient given 3mg of Ativan out of concern for patient and staff's safety. Further medication was held to allow patient to complete discussion with [place] [employer]. Headend Technician Nissaaida presented to the hospital to further address patient's complaint. Discussed with patient that he needs to comply with medical staff due to 302 and that until he is medically cleared he has to remain in the hospital under supervision. Patient then remained verbally combative with staff and subsequently required 10mg of IM Haldol. Patient having removed IV site manually and unwilling to allow staff to examine arm for bleeding. Continuing to threaten to throw hot coffee on staff in an effort to leave the hospital. Left bedside at 230pm while patient still verbally combative and aggressive but no longer attempting to leave the hospital. Called back to bedside just after 3pm following patients stated consumption of the batteries from the TV remote. Upon return to room for evaluation patient remained verbally hostile towards staff with disparaging remarks being made based off staffs ethnicity and nationality. Continued to make threatening statements towards staff, out of continued concern for safety of patient and inability to determine the exact extent of consumption and refusal to co-operate with staffs directions, patient received an addition 2mg of Ativan, 50mg of IM Benadryl with no improvement in compliance and ultimately received 20mg of Geodon. Following which patient stopped being combative, and made less aggressive/disparaging/threatening remarks towards staff and complied with staff's direction. Review of Systems Review of Systems: All systems reviewed & are unremarkable except as noted in Subjective Physical Exam Physical Exam: Patient refused extensive examination by all providers throughout the day General: aggravated, combative, aggressive with staff and this provider Resp: no cough or wheeze audible during extensive discussions with patient CV: peripheral pulses 2+ and symmetric b/l Abd: mildly tender to palpation of all quadrants Psych: Alert and oriented, combative, escalatory Results & Data Results & Data ([facility]) Medications Administered Current Inpatient Medications Clonazepam (Clonazepam 1 Mg Tab) 1 mg PO TID [facility] Stop: 01/27/20 13:59 Last Admin: 01/02/20 14:13 Dose: 1 mg Documented by: Clonidine HCl (Clonidine Hcl 0.1 Mg Tab) 0.1 mg PO HS [facility] Stop: 01/27/20 20:59 Last Admin: 01/01/20 20:32 Dose: 0.1 mg Documented by: Escitalopram Oxalate (Escitalopram Oxalate 20 Mg Tab) 20 mg PO DAILY [facility] Stop: 01/27/20 09:29 Last Admin: 01/02/20 08:35 Dose: 20 mg Documented by: Gabapentin (Gabapentin 600 Mg Tab) 600 mg PO TID [facility] Stop: 01/27/20 09:59 Last Admin: 01/02/20 14:13 Dose: 600 mg Documented by: Haloperidol Lactate (Haloperidol Lactate 5 Mg/Ml 1 Ml Vial) 5 mg IM Q6H PRN PRN Reason: Agitation Stop: 01/27/20 16:55 Hydromorphone HCl (Hydromorphone Inj 0.5 Mg/0.5 Ml Syr) 0.5 mg IV Q12H PRN PRN Reason: Pain Stop: 01/16/20 16:02 Last Admin: 01/02/20 16:15 Dose: 0.5 mg Documented by: Lorazepam (Ativan) 1 mg in 2 mls @ 0.5 mls/min IV Q6H PRN PRN Reason: Agitation Stop: 01/27/20 18:08 Miscellaneous (Remove Nicoderm Patch) 1 ea N/A DAILY@[id number] [facility] Stop: 01/28/20 08:58 Last Admin: 01/02/20 08:36 Dose: 1 ea Documented by: Nicotine (Nicotine 21 Mg/24 Hr Tdsy) 21 mg TD QAM [facility] Stop: 01/27/20 18:14 Last Admin: 01/02/20 08:36 Dose: 21 mg Documented by: Ondansetron HCl (Ondansetron Inj 2 Mg/Ml 2 Ml Vial) 4 mg IV Q6H PRN PRN Reason: Nausea Stop: 12/10/20 03:42 Perphenazine (Perphenazine 2 Mg Tablet) 12 mg PO HS [facility] Stop: 02/02/20 20:59 Polyethylene Glycol (Polyethylene (Miralax) 17 Gm Pack) 17 gm PO BID [facility] Stop: 01/30/20 20:59 Last Admin: 01/02/20 08:46 Dose: 17 gm Documented by: Trazodone HCl (Trazodone Hcl 50 Mg Tab) 50 mg PO HS [facility] Stop: 01/27/20 20:59 Last Admin: 01/01/20 20:29 Dose: 50 mg Documented by: Resident Activity Tracking Resident Involvement: Resident Care Provided Care Provided: Adult Hospital Medicine (1) Ingestion of foreign body Encounter type: initial encounter Qualified Code(s): T18.9XXA - Foreign body of alimentary tract, part unspecified, initial encounter
[2020-01-02] MEDS: diphenhydrAMINE 50 MG/ML VIAL IM STA ×2 (14:48→14:59)
[2020-01-02] MEDS ORDERED: ZIPRASIDONE 20 MG/ML SDV IM STA ×2 (14:58→15:06)
[2020-01-02] MEDS: HYDROmorphone INJ 0.5 MG/0.5 ML SYR IV PRN (16:15)
--- NOTE | 2020-01-02 16:19 | XRay Report ---
KUB HISTORY: Follow up study in a patient with foreign body ingestion swallowed batteries COMPARISON: KUB radiograph of same day FINDINGS: Radiopaque foreign bodies suggestive of a blade is again noted projecting over the mid pelv is in the expected location of the rectum. New from prior there are two 5.8 cm cylindrical opaque for eign bodies in the region of the mid stomach suggestive of AA batteries. No renal calculi. No uretera l calculi. No pneumoperitoneum or pneumatosis. No fracture. IMPRESSION: 1. Unchanged positioning of the linear probable razor blade project near the mid pelvis in the expect ed location of the rectum. 2. New from prior there are two ingested batteries within the epigastric abdomen in the expected loca tion of the stomach. ACT 112: Negative or not required by law. The above report was generated using voice recognition software. It may contain grammatical, syntax o r spelling errors. Electronically signed by: Jayden Barone M.D. 01/02/2020 4:18 PM
--- NOTE | 2020-01-02 19:38 | Billing Data ---
Date of Service January 02, 2020 Coding Level of Care Code 19730 Subseq Hosp Care Lvl 3
[2020-01-02] MEDS: cloNIDine HCL 0.1 MG TAB PO SCH (22:10)
[2020-01-02] MEDS: traZODone HCL 50 MG TAB PO SCH (22:10)
[2020-01-03] MEDS: HYDROmorphone INJ 0.5 MG/0.5 ML SYR IV PRN (04:59)
[2020-01-03] MEDS ORDERED: MAGNESIUM CITRATE 296 ML/BTL PO STA (05:46)
[2020-01-03] MEDS ORDERED: PROCHLORPERAZINE 5 MG in SYRINGE 4 ML IV ONE (06:26)
[2020-01-03] MEDS: GABAPENTIN 600 MG TAB PO SCH ×3 (07:37→20:13)
[2020-01-03] MEDS: POLYETHYLENE (MIRALAX) 17 GM PACK PO SCH ×2 (07:37→20:13)
--- NOTE | 2020-01-03 07:45 | XRay Report ---
SINGLE VIEW CHEST CLINICAL HISTORY: Hematemesis. Foreign body ingestion. FINDINGS: An AP, portable, upright chest radiograph is compared to study dated 12/27/2019. The cardiom ediastinal silhouette is unremarkable. There is mild bibasilar atelectasis. The lungs and pleural spa jael are otherwise clear. No pneumothorax is seen. The bony thorax is grossly intact. No radiodense/me tallic foreign body is identified in the chest. IMPRESSION: No active disease in the chest. ACT 112: Negative or not required by law. Electronically signed by: Carlton King M.D. 01/03/2020 7:43 AM
--- NOTE | 2020-01-03 07:56 | XRay Report ---
KUB HISTORY: Hematemesis COMPARISON: KUB 01/02/2020. FINDINGS: The bowel gas pattern is unremarkable. There are no dilated loops of small bowel to suggest an obstruction. No renal calculi. No ureteral calculi. No pneumoperitoneum or pneumatosis. There ar e 2 batteries in the expected location of the stomach within the epigastric region. There is a razor blade-type radiopaque foreign body overlying the rectum. This is also unchanged. IMPRESSION: No change in position of the radiopaque foreign bodies within the abdomen and pelvis as described abo ve. ACT 112: Negative or not required by law. Electronically signed by: Raza Nickerson M.D. 01/03/2020 7:55 AM
[2020-01-03] MEDS: clonazePAM 1 MG TAB PO SCH ×3 (08:04→20:19)
[2020-01-03] MEDS: NICOTINE 21 MG/24 HR TDSY TD SCH (08:31)
[2020-01-03] MEDS: ESCITALOPRAM OXALATE 20 MG TAB PO SCH (08:31)
--- NOTE | 2020-01-03 10:14 | Communication Note ---
Date of Service: January 03, 2020 At this point in time patient is medically clear for discharge to Inpatient Psychiatric Unit. Per GI no emergent need for intervention at this time given low risk with cylindrical battery ingestion. Razor blade near the mid pelvis in the expected location of the rectum with expectation to pass. Resident Activity Tracking Resident Involvement: Resident Care Provided Care Provided: Adult [facility] Medicine
--- NOTE | 2020-01-03 10:15 | Hospitalist Progress Note ---
Date of Service January 03, 2020 Assessment & Plan (1) Ingestion of foreign body: Patient is a 44 year old male with PMHx personality disorder, impulse control disorder, depression, visual and auditory hallucinations who presented initially after a suicide attempt secondary to swallowing razor blades. Suicide Attempt secondary to Foreign Body Ingestion: -Per chart review patient had noted auditory and visual hallucinations that instructed him to swallow razor blades. -In the ED XR's revealed 3 radiopaque foreign bodies consistent with razor blades. -Patient underwent EGD with Dr. Matias on admission, but was unable to remove the razor blades secondary to significant portion of food debris. -General Surgery consulted, no plans for surgical operations at this time as patient has no signs of perforation presently -Would recommend CT scan prior if further localization needed. -At this time does not believe for signs of surgical intervention. -Patient underwent EGD with Dr. Man 12/28/19 who was able to remove 1 of the 3 razor blades, the blade was wrapped in tape. -Psychiatry consulted, appreciate recommendations -Patient currently 302'd, not safe to leave on his own -Plans for inpatient psychiatric treatment once medically stable; Patient a greeable and prefers [facility] -Spoke with Dr. Michael who noted that patient does have a history of Bipolar Disorder, but at this time does not believe he is in a manic or psychotic ep isode. As such, believes patient is aware of what he is doing and should he harm staff, can be held responsible. -D/c Dilaudid at this time to avoid misuse -Second ingestion of two AA batteries demonstrated by KUB on 01/01 -discussed case with GI continuity director, no emergent need for intervention at this time given low risk with cylindrical battery ingestion -Patient at this time medically clear for discharge to inpatient psychiatric unit. Hematemesis -Bright red blood noted overtop of emesis in toilet, <3cc visible. -?secondary to vomiting/retching -CXR negative -KUB showing radiopaque foreign bodies (2 double A batteries and 1 razor blade) within the abdomen and pelvis. -No further bouts of nausea and vomiting, continue to monitor. Bipolar ds with impulse control ds and personality ds with antisocial traits: -Continue Lexapro 20mg, Klonopin 1mg TID, Trazodone 50mg HS, Perphenazine 12mg HS, Neurontin 600mg TID -Continue Catapres 0.1mg HS -Medically clear for discharge to inpatient unit Agitation/Aggression -Ativan 1mg q6h PRN -Haldol 5mg q6h PRN -Received Geodon 20mg the day prior to good effect, can consider again if above medications ineffective -Would recommend EKG for QT prolongation monitoring, though patient refusing. -Last QTc 411 on EKG 03/27/19 Dispo: M/S Telemetry FEN: Reg, Safe tray DVT: Low Risk Code: Full Admission and Anticipated Discharge Date Admission Date: December 28, 2019 Supervising Physician Co-Signing Physician Notes Resident Physician Supervision Note: I independently interviewed and examined the patient and verified the barajas history and physical, reviewed labs and image studies, discussed the case with the resident Dr. Olea and agree with the findings and care plan. Subjective Was asked by nursing to come evaluate patient at the bedside this AM due to conc erns of hematemesis. Patient noted that he had been having nausea since he awoke roughly 5AM this morning and shortly after had a bout of emesis that had parts of bright red blood. His nausea improved after administration of prochlorperazine. He currently continued to describe some epigastric burning and abdominal discomfort, primarily in the upper quadrants. Review of Systems Constitutional: no fever and no chills Respiratory: no cough, no dyspnea and no pain on inspiration Cardiovascular: no chest pain, no radiating jaw, neck or arm pain, no dyspnea and no dyspnea on exertion Gastrointestinal: + abdominal pain, + nausea, + vomiting and + hematemesis Genitourinary: no dysuria Physical Exam Constitutional: well developed and well nourished Eyes: PERRL, conjunctivae normal, anicteric sclerae ENMT: external ear and nose normal, oropharynx normal Neck: trachea midline, no thyromegaly Respiratory: normal respiratory effort, lungs clear to auscultation Cardiovascular: RRR, no murmur, no edema Gastrointestinal (Abdomen): Inspection/Auscultation: abdomen normal to inspection and normal bowel sounds; abdomen not distended Percussion/Palpation: + abdomen tender (slight TTP in the upper quadrants b/l ) and abdomen soft; abdomen not rigid Psychiatric: Orientation: + guarded; + uncooperative Affect: + irritable affect Resident Activity Tracking Resident Involvement: Resident Care Provided Care Provided: Adult [facility] Medicine (1) Ingestion of foreign body Encounter type: initial encounter Qualified Code(s): T18.9XXA - Foreign body of alimentary tract, part unspecified, initial encounter
--- NOTE | 2020-01-03 11:10 | Surgery Progress Note ---
Date of Service January 03, 2020 Assessment & Plan (1) Ingestion of foreign body: agree with GI plan does not require surgical intervention Admission and Anticipated Discharge Date Admission Date: December 28, 2019 PG Care Time/CCT Total # of Minutes Spent Total Time Spent with Patient: Total time spent is greater than 50% in coordination of care (as documented) at patient's floor/unit and/or counseling patient: Coding Level of Care Code None Diagnoses Ingestion of foreign body T18.9XXA Encounter type: initial encounter (1) Ingestion of foreign body Encounter type: initial encounter Qualified Code(s): T18.9XXA - Foreign body of alimentary tract, part unspecified, initial encounter
[2020-01-03] MEDS: PERPHENAZINE 2 MG TABLET PO SCH (20:13)
[2020-01-03] MEDS: traZODone HCL 50 MG TAB PO SCH (20:19)
[2020-01-03] MEDS: cloNIDine HCL 0.1 MG TAB PO SCH (20:19)
[2020-01-03] MEDS ORDERED: traMADol HCL 50 MG TABLET PO STA (22:12)
--- NOTE | 2020-01-04 07:02 | Hospitalist Progress Note ---
Date of Service January 04, 2020 Assessment & Plan (1) Ingestion of foreign body: Patient is a 44 year old male with PMHx personality disorder, impulse control disorder, depression, visual and auditory hallucinations who presented initially after a suicide attempt secondary to swallowing razor blades. Suicide Attempt secondary to Foreign Body Ingestion: -Per chart review patient had noted auditory and visual hallucinations that instructed him to swallow razor blades. -In the ED XR's revealed 3 radiopaque foreign bodies consistent with razor blades. -Patient underwent EGD with Dr. Matias on admission, but was unable to remove the razor blades secondary to significant portion of food debris. -General Surgery consulted, no plans for surgical operations at this time as patient has no signs of perforation presently -Would recommend CT scan prior if further localization needed. -At this time does not believe for signs of surgical intervention. -Patient underwent EGD with Dr. Man 12/28/19 who was able to remove 1 of the 3 razor blades, the blade was wrapped in tape. -D/neli Dilaudid at this time to avoid misuse -Second ingestion of two AA batteries demonstrated by KUB on 01/01 -discussed case with GI carton stapler, no emergent need for intervention at this time given low risk with cylindrical battery ingestion -Psychiatry consulted, appreciate recommendations -Patient currently 302'd, not safe to leave on his own -Plans for inpatient psychiatric treatment once medically stable; Patient agreeable and prefers [facility] -Per Dr. Michael - No concern of mehdi or psychotic episode at this time. As such, believes patient is aware of what he is doing and should he harm staff, can be held responsible. -Patient at this time medically clear for discharge to inpatient psychiatric unit. Hematemesis -Bright red blood noted overtop of emesis in toilet, <3cc visible on 01/03/20 -?secondary to vomiting/retching -CXR negative -KUB showing radiopaque foreign bodies (2 double A batteries and 1 razor blade) within the abdomen and pelvis. -No further bouts of nausea and vomiting, continue to monitor. Bipolar ds with impulse control ds and personality ds with antisocial traits: -Continue Lexapro 20mg, Klonopin 1mg TID, Trazodone 50mg HS, Perphenazine 12mg HS, Neurontin 600mg TID -Continue Catapres 0.1mg HS -Medically clear for discharge to inpatient unit Agitation/Aggression -Ativan 1mg q6h PRN -Haldol 5mg q6h PRN -Received Geodon 20mg the day prior to good effect, can consider again if above medications ineffective -Would recommend EKG for QT prolongation monitoring, though patient refusing. -Last QTc 411 on EKG 03/27/19 Dispo: M/S Telemetry FEN: Reg, Safe tray DVT: Low Risk Code: Full Admission and Anticipated Discharge Date Admission Date: December 28, 2019 Supervising Physician Co-Signing Physician Notes Resident Physician Supervision Note: I independently interviewed and examined the patient and verified the barajas history and physical, reviewed labs and image studies, discussed the case with the resident Dr. Olea and agree with the findings and care plan. Subjective Attempted to evaluate the patient this AM. Upon arrival to patient's room his first words were "You medically cleared me, get the fuck out." I asked the patient how he was feeling this AM to which he responded "Get the fuck out." Attempted to ask the patient whether or not his abdominal pain had changed to which he responded with the previous. Patient not agreeable to ROS or exam this AM. Review of Systems Review of Systems: Other (patient refusal) Physical Exam Physical Exam: Patient refusal for physical exam. Resident Activity Tracking Resident Involvement: Resident Care Provided Care Provided: Adult Hospital Medicine (1) Ingestion of foreign body Encounter type: initial encounter Qualified Code(s): T18.9XXA - Foreign body of alimentary tract, part unspecified, initial encounter
[2020-01-04] MEDS: GABAPENTIN 600 MG TAB PO SCH ×3 (08:49→20:01)
[2020-01-04] MEDS: ESCITALOPRAM OXALATE 20 MG TAB PO SCH (08:49)
[2020-01-04] MEDS: clonazePAM 1 MG TAB PO SCH ×3 (08:49→20:01)
[2020-01-04] MEDS: NICOTINE 21 MG/24 HR TDSY TD SCH (08:50)
[2020-01-04] MEDS: POLYETHYLENE (MIRALAX) 17 GM PACK PO SCH ×2 (10:08→20:02)
[2020-01-04] MEDS ORDERED: ZIPRASIDONE 20 MG/ML SDV IM PRN (12:04)
[2020-01-04] MEDS: LORazepam 1 MG/2 ML VIAL IV PRN (17:12)
[2020-01-04] MEDS ORDERED: KETOROLAC TROMETHAMINE 15 MG/ML VIAL IV ONE (18:00)
[2020-01-04] MEDS: HALOPERIDOL LACTATE 5 MG/ML 1 ML VIAL IM PRN (19:37)
[2020-01-04] MEDS: cloNIDine HCL 0.1 MG TAB PO SCH (20:00)
[2020-01-04] MEDS: traZODone HCL 50 MG TAB PO SCH (20:00)
[2020-01-04] MEDS: PERPHENAZINE 2 MG TABLET PO SCH (20:01)
[2020-01-04] MEDS ORDERED: traMADol HCL 50 MG TABLET PO STA (20:59)
[2020-01-04] MEDS ORDERED: ZOLPIDEM TARTRATE 10 MG TAB PO ONE (21:00)
[2020-01-05] MEDS: LORazepam 1 MG/2 ML VIAL IV PRN (06:08)
[2020-01-05] MEDS: clonazePAM 1 MG TAB PO SCH (08:45)
[2020-01-05] MEDS: GABAPENTIN 600 MG TAB PO SCH (08:46)
[2020-01-05] MEDS: NICOTINE 21 MG/24 HR TDSY TD SCH (08:47)
[2020-01-05] MEDS: POLYETHYLENE (MIRALAX) 17 GM PACK PO SCH (08:47)
[2020-01-05] MEDS: ESCITALOPRAM OXALATE 20 MG TAB PO SCH (08:47)
[2020-01-05] MEDS: HALOPERIDOL LACTATE 5 MG/ML 1 ML VIAL IM PRN (09:03)
[2020-01-05] MEDS ORDERED: KETOROLAC TROMETHAMINE 15 MG/ML VIAL IV PRN (10:00)
[2020-01-05] MEDS ORDERED: MAGNESIUM CITRATE 296 ML/BTL PO ONE (10:30)
--- NOTE | 2020-01-05 10:33 | Hospitalist Progress Note ---
Date of Service January 05, 2020 Assessment & Plan Admission and Anticipated Discharge Date Admission Date: December 28, 2019
--- NOTE | 2020-01-05 12:24 | Psychiatric Progress Note ---
Date of Service January 05, 2020 Impression / Recommendations (1) Malingering: Patient reports he swallowed razor blades in order to be admitted to the hospital so that he could continue to get disability income. He was poorly cooperative with treatment throughout his stay, and demonstrates ASPD characteristics. He is unlikely to benefit from inpatient psychiatric treatment, and after a 3-day bed search the delegate has been unable to identify any facilities willing to accept him. He states he is willing to continue with outpatient treatment, has a follow-up with his psychiatrist on Friday, and would like to work with his therapist. He agreed to a referral for a rifle case repairer through [facility]. Both he and his mother deny acute safety concerns, and he is able to identify several supports, including his fiance, mother, and sister. (2) Personality disorder, unspecified: Patient has been verbally assaulting staff, aggressive, and threatening at times. Antisocial traits noted. Risk Factors Assessment Risk factors were mitigated by admission to the hospital, medical treatment of foreign body ingestions, coordination of care with his outpatient psychiatrist, continuing his home psychotropic medications, involving his mother who is one of his main supports in treatment, a period of monitoring to ensure stability, working on healthy coping skills and a discharge safety plan, completion of the [facility] patient workbook, and referring for increased outpatient services (case management). The patient's mood has stabilized, irritability is reduced, there is no evidence of manic or psychotic symptoms, he is denying suicidal ideation or urges to self injure, has not ingested foreign bodies in 3 days, and is reporting that he ingested razor blades with intention to maintain disability income. Although he is a chronic elevated risk for harm to himself and others as a result of antisocial personality traits, male sex, and past behavior, his remaining risk factors are not likely to be mitigated by inpatient treatment, and he is not at imminent risk of harm, so can be managed as an outpatient at this time. Interval History Identifying Information 44-year-old male with history of bipolar type II, generalized anxiety disorder, and personality disorder NOS who is admitted after swallowing 3 razor blades; seen today for follow-up. Chief Complaint "I just want to go home". Subjective Subjective Patient was seen & assessed and interval progress reviewed in the chart, with Dr. Olea and Dr. Urbina, and the psychiatric liaison nurse. Per notes, he continues to be hostile, verbally abusive, and aggressive towards staff, often noncompliant with exams and treatment recommendations. The [facility] delegate has been performing a bed search x 3 days, with no accepting facility i dentified. Yesterday, the patient's mother contacted hospital staff, and he signed a release to allow the psychiatric liaison nurse to speak with her. She stated that the patient and his fiance broke up on Friday, and that he ingested the razor blades as a way to "get her back." She stated willingness to come pick him up if he can be discharged. This morning, the patient verbalized frustration to his nurse, and requested Haldol and Ativan. He has been taking his psychotropic medications as prescribed, and has not had hydromorphones since 01/02/2020, and received 1 dose of tramadol yesterday. On my assessment, he was seen with the psychiatric liaison nurse. Reviewed his progress since the initial psychiatric assessment, and he states that he has been angry and irritable as he does not want to be in the hospital, and does not feel he needs to be here. He states that he swallowed the razor blades because "I'm coming out for Social Security review, they wanna see you in and out of the hospital." He denies that he intended to harm himself, and had actually wrapped the razor blades and tape in advance to minimize the risk of harm. He states that he swallowed 2 batteries while in the hospital (on 01/02/2020) because he was mad at nursing staff and felt that "no one was trying to help me, they just left me laying here." He states that he regrets his behavior, and apologizes for his mistreatment of staff throughout his stay. He reports difficulty controlling his anger, which is a longstanding problem. He notes progress in irritability, as he was able to reach out to staff and ask for assistance this morning when he was feeling agitated, as there were people talking loudly outside his door. He feels his current medication regimen is helpful, and is willing to follow-up with outpatient treatment. He has a psychiatrist at [facility], and has been trying to get a therapist, but says none of the therapists there accepted his insurance. He is willing for a referral for a rifle case repairer through [facility] to assist him with outpatient treatment/supports. He denies current depressive symptoms, SI, urges to self injure, and has consistently denied psyc hotic symptoms throughout his hospitalization. He states that if discharged, he would return to the home he shares with his fiance in [place]. He states that his mother does not know the whole story, and denies that he and his fiance broke up or were even fighting prior to admission. He denies any safety concerns with discharge. He was provided with a behavioral health unit patient workbook, which he completed in its entirety, including CBT techniques (identifying cognitive distortions and ability to correct them), identifying triggers for stress and aggression, as well as warning signs and helpful interventions, identifying healthy coping skills (meditating, journaling, focusing on healthy habits such as diet and good sleep, taking medication as directed, exercising, spending time with family and fianc), and completed his safety plan. Procedures Performed Operation Date: 12/28/19 00:30 Actual Procedures p Esophagogastroduodenoscopy - Timmy Matias DO Operation Date: 12/28/19 09:40 Actual Procedures p Esophagogastroduodenoscopy(Not Applicable) - Andi Man MD Physical Exam Psychiatric Orientation: alert and cooperative Apperance: appropriately dressed and appeared stated age Eye Contact: + fair eye contact Motor Behavior: no abnormal motor movements Speech: normal rate/rhythm/volume of speech Affect: euthymic affect and mood congruent with affect Stable, appropriate. "Good." Thought Process: goal directed thought process Thought Content: + cognitive distortions (Accuses staff of mistreating him) Suicidal Thoughts: denies suicidal thoughts Homicidal Thoughts: denies homicidal thoughts Hallucinations: no auditory hallucinations and no visual hallucinations Cognition: attention grossly intact and language grossly intact Insight: + limited insight Judgement: + limited judgement Vital Signs (Past 24 Hours) Last Vital Signs Temp 36.4 C L 01/01/20 22:28 Pulse 80 01/01/20 22:28 Resp 15 01/01/20 22:28 BP 137/96 01/01/20 22:28 Pulse Ox 91 01/01/20 22:28 Results & Data ([facility]) Current Inpatient Medications Current Inpatient Medications: Current Inpatient Medications Clonazepam (Clonazepam 1 Mg Tab) 1 mg PO TID BRYAN Stop: 01/27/20 13:59 Last Admin: 01/05/20 08:45 Dose: 1 mg Documented by: Clonidine HCl (Clonidine Hcl 0.1 Mg Tab) 0.1 mg PO HS [facility] Stop: 01/27/20 20:59 Last Admin: 01/04/20 20:00 Dose: 0.1 mg Documented by: Escitalopram Oxalate (Escitalopram Oxalate 20 Mg Tab) 20 mg PO DAILY BRYAN Stop: 01/27/20 09:29 Last Admin: 01/05/20 08:47 Dose: 20 mg Documented by: Gabapentin (Gabapentin 600 Mg Tab) 600 mg PO TID [facility] Stop: 01/27/20 09:59 Last Admin: 01/05/20 08:46 Dose: 600 mg Documented by: Haloperidol Lactate (Haloperidol Lactate 5 Mg/Ml 1 Ml Vial) 5 mg IM Q6H PRN PRN Reason: Agitation Stop: 01/27/20 16:55 Last Admin: 01/05/20 09:03 Dose: 5 mg Documented by: Lorazepam (Ativan) 1 mg in 2 mls @ 0.5 mls/min IV Q6H PRN PRN Reason: Agitation Stop: 01/27/20 18:08 Last Admin: 01/05/20 06:08 Dose: 0.5 mls/min Documented by: Ketorolac Tromethamine (Ketorolac Tromethamine 15 Mg/Ml Vial) 15 mg IV Q6H PRN PRN Reason: Pain Stop: 01/10/20 09:59 Last Admin: 01/05/20 10:36 Dose: 15 mg Documented by: Miscellaneous (Remove Nicoderm Patch) 1 ea N/A DAILY@[id number] [facility] Stop: 01/28/20 08:58 Last Admin: 01/05/20 08:47 Dose: 1 ea Documented by: Nicotine (Nicotine 21 Mg/24 Hr Tdsy) 21 mg TD QAM [facility] Stop: 01/27/20 18:14 Last Admin: 01/05/20 08:47 Dose: 21 mg Documented by: Ondansetron HCl (Ondansetron Inj 2 Mg/Ml 2 Ml Vial) 4 mg IV Q6H PRN PRN Reason: Nausea Stop: 01/27/20 03:42 Last Admin: 01/03/20 05:36 Dose: 4 mg Documented by: Perphenazine (Perphenazine 2 Mg Tablet) 12 mg PO HS BRYAN Stop: 02/02/20 20:59 Last Admin: 01/04/20 20:01 Dose: 12 mg Documented by: Polyethylene Glycol (Polyethylene (Miralax) 17 Gm Pack) 17 gm PO BID BRYAN Stop: 01/30/20 20:59 Last Admin: 01/05/20 08:47 Dose: Not Given Documented by: Trazodone HCl (Trazodone Hcl 50 Mg Tab) 50 mg PO HS [facility] Stop: 01/27/20 20:59 Last Admin: 01/04/20 20:00 Dose: 50 mg Documented by: Ziprasidone (Ziprasidone 20 Mg/Ml Sdv) 20 mg IM ONE PRN PRN Reason: Agitation Stop: 02/03/20 12:03 Mental Health & Subst Abuse Tx Psychiatrist Name of Psychiatrist: [place] [facility] [place] Date of Appointment with Psychiatrist: 01/10/20 Time of Appointment with Psychiatrist: 8:40 Psychiatric Appointment Comment: with the nurse Psychiatrist Release of Information: Obtained, Reviewed and Signed
--- NOTE | 2020-01-05 12:28 | Discharge Summary ---
Date of Service January 05, 2020 Admission HPI Per Admitting Provider The patient is a 44-year-old male with a past medical history including personality disorder, impulse control disorder, and depression. He reports seeing a dark figure and his house that was talking to him, and then became aware that he had swallowed razor blades. X-rays performed in the emergency department did reveal 3 razor blades in the stomach. The patient was taken to the endoscopy suite by Dr. Matias, but was unable to retrieve the razor blades due to a large volume of debris in the stomach. The plan is to admit the patient to the hospital with one-to-one observation, repeat x-ray in the a.m., and consult gastroenterology again in the a.m. for possible EGD at that time. Admission Exam Per Admitting Provider The patient is awake, alert and oriented 3, well developed and well nourished, normocephalic and atraumatic, lying in bed and in no acute distress. HEENT--PERRL, EOMI, mucous membranes and oropharynx normal. Neck--supple. No JVD. No bruits. Thyroid normal, trachea midline, no adenopathy. Heart--normal S1 and S2. No murmurs, rubs or gallops. Lungs--clear bilaterally, no respiratory distress, no accessory muscle use. Abdomen--normal bowel sounds and soft. Epigastric tenderness. Nondistended, no hernias or masses, no organomegaly. Extremities--no cyanosis or clubbing. No edema. Dermatologic--normal skin turgor, normal color, no abnormal lymph nodes, no rash. Neurologic--cranial nerves II through XII grossly intact. Rheumatologic--normal range of motion. Psychiatric--normal affect. Principal Diagnosis Foreign Body Ingestion, Malingering Discharge Exam Constitutional well developed and well nourished; no acute distress Respiratory normal respiratory effort, lungs clear to auscultation Cardiovascular RRR, no murmur, no edema Gastrointestinal (Abdomen) Inspection/Auscultation: abdomen normal to inspection and normal bowel sounds; abdomen not distended Percussion/Palpation: + abdomen tender (TTP in upper quadrants ) and abdomen soft; abdomen not rigid Neurologic awake Psychiatric Orientation: alert, oriented x 3 and + guarded Eye Contact: + poor eye contact Discharge Data Allergies Allergy/AdvReac Type Severity Reaction Status Date / Time mushroom Allergy Severe Anaphylaxis Verified 12/27/19 22:12 meperidine [From Demerol] Allergy Intermediate Rash Verified 12/27/19 22:12 morphine Allergy Intermediate Rash Verified 12/27/19 22:12 lamotrigine [From Lamictal] AdvReac Unknown Hallucinati Verified 12/27/19 22:13 ng Consultations 12/27/19 23:03 ED Decision to Admit Stat 12/28/19 01:11 Consult General Surgery Routine 12/28/19 03:43 Consult Psychiatry Routine 12/28/19 08:56 Consult Gastroenterology Routine Procedures Performed Operation Date: 12/28/19 00:30 Actual Procedures p Esophagogastroduodenoscopy - Timmy Matias DO Operation Date: 12/28/19 09:40 Actual Procedures p Esophagogastroduodenoscopy(Not Applicable) - Andi Man MD Hospital Course (1) Malingering: Patient is a 44 year old male with PMHx personality disorder, impulse control disorder, depression, visual and auditory hallucinations who presented initially after a suicide attempt secondary to swallowing razor blades. Malingering -Patient had reported to the Psychiatry physician that he had swallowed razor blades in order to be admitted to the hospital so he could continue to get disability income. -Also concerns of ASPD characteristics as patient was poorly cooperative with treatment throughout stay. -Psychiatry felt that due to this he was unlikely to benefit from inpatient psychiatric treatment. -Patient is to continue, however, as outpatient with his psychiatrist on 01/10/20. -He also agreed to referral for a skilled nursing case manager through [facility]. Foreign Body Ingestion - malingering: -Initial chart review patient had noted auditory and visual hallucinations that instructed him to swallow razor blades -In the ED XR's revealed 3 radiopaque foreign bodies consistent with razor blades. -Patient underwent EGD with Dr. Matias on admission, but was unable to remove the razor blades secondary to significant portion of food debris. -General Surgery consulted - no need for surgical intervention was required. -Patient underwent EGD with Dr. Man 12/28/19 who was able to remove 1 of the 3 razor blades, the blade was wrapped in tape. -Patient had been on IV Dilaudid for pain management which was discontinued due to concerns for misuse -Second ingestion of two AA batteries demonstrated by KUB on 01/01 -discussed case with GI professional bondsman, no emergent need for intervention at this time given low risk with cylindrical battery ingestion -Psychiatry consulted -Initially patient was 302'd due to concerns about safety in regards to leaving -No concern of mehdi/psychosis -Later patient disclosed the secondary gain. Hematemesis -Bright red blood noted overtop of emesis in toilet, <3cc visible on 01/03/20 -CXR negative -KUB showing radiopaque foreign bodies (2 double A batteries and 1 razor blade) within the abdomen and pelvis. -No further bouts of nausea and vomiting were noted throughout the stay Bipolar ds with impulse control ds and personality ds with antisocial traits: -Stable mood. -Continued Lexapro 20mg, Klonopin 1mg TID, Trazodone 50mg HS, Perphenazine 12mg HS, Neurontin 600mg TID -Continued Catapres 0.1mg HS Agitation/Aggression -During hospital stay patient had several bouts of agitation and aggression towards hospital staff - Sec to ASPD. Received multiple doses of geodon/ativan/haldol. - Psychiatry reinforced outpatient follow up with counsellor. Per psychiatry ---"He was provided with a behavioral health unit patient workbook, which he completed in its entirety, including CBT techniques (ident ifying cognitive distortions and ability to correct them), identifying triggers for stress and aggression, as well as warning signs and helpful interventions, identifying healthy coping skills (meditating, journaling, focusing on healthy habits such as diet and good sleep, taking medication as directed, exercising, spending time with family and fianc), and completed his safety plan". (2) Ingestion of foreign body: Total Time Total Time Spent Total Time Spent (In Minutes): see attending attestation Discharge Plan Discharge Items Patient Disposition: Home - Self-Care Reason For Visit: SWALLOWED RAZOR BLADES Discharge Diagnosis: Foreign Body Ingestion Activity: Resume your previous activity Non-emergency contact: Primary Care Provider and Psychiatrist Call non-emergency contact if: you have any medication questions and your symptoms worsen Follow-up/Referrals: Roscoe Rodriguez M.D. [Primary Care Provider] - (You need to call your pcp for a follow up ) Diet: Regular Addtl Attending Provider Instructions: Mr. Romero, Please see below for a summary of your care at [facility] from 12/27 - 01/05/20. Foreign Body Ingestion -Upon your arrival to the ED there was noted to be 3 radiopaque foreign bodies within your stomach. This correlated with your history of ingestion of razor blades. You were seen by GI who performed an EGD, but was unable to remove any razor blades at that time secondary to significant portion of food debris. You were admitted and evaluated further by General Surgery and GI. General Surgery did not believe that surgical intervention was necessary during your stay. GI underwent another EGD on 12/28/19 and was able to remove 1 of the 3 razor blades found to be wrapped in tape. The remaining razor blades were expected to pass without complications. On 01/02/20 you had an ingestion of two AA batteries which were demonstrated on KUB. We discussed this case with GI who felt no emergent need for intervention given low risk with cylindrical battery ingestion. As such, we felt that you were medically stable in regards to discharge at that time. Bipolar Disease with Impulse Control Control Disease and Personality Disease with Antisocial Traits -Continue your home medications as prescribed. -Your personal Psychiatrist will titrate these as needed. Please follow up with your personal Psychiatrist on 01/10/20. Please follow up with your PCP if you notice further concerns in regards to passing the remaining foreign bodies ingested. If you have any thoughts of harming yourself or others, please call 911, seek urgent medical attention, or return to the ED. Pending Studies at Discharge: No Stand-Alone Forms: My [facility], Smoking Cessation, Suicide Prevention Resources Medications and DC Order Prescriptions: Continued clonazepam 1 mg tablet 1 mg PO TID RF: 0 clonidine HCl 0.1 mg tablet 0.1 mg PO HS RF: 0 perphenazine 4 mg tablet 12 mg PO DAILY RF: 0 escitalopram oxalate 20 mg tablet 20 mg PO DAILY RF: 0 gabapentin 600 mg tablet 600 mg PO TID RF: 0 trazodone 50 mg Tablet 50 mg PO HS RF: 0 Multi Vitamin 1 tab PO DAILY RF: 0 Discharge Orders: Discharge Order (Routine); Ordered 01/05/20 Ordered By: José Olea Admission Data Admit Date/Time: 12/28/19 01:08 Attending Provider: Brianna Urbina Admit Provider: Kem Hernandez Primary Care Provider: Roscoe Rodriguez Other Providers: Kem Hernandez ; Ivan Shane ; Brenda Michael ; Andi Man ; Sim Obregon Other Interventions: Discharge Summary Assessment (RN) Last Done: 01/05/20 13:06 PSY Interdisciplinary Discharge Planning Last Done: 12/28/19 10:48 Supervising Physician Co-Signing Physician Notes Resident Physician Supervision Note: I independently interviewed and examined the patient and verified the barajas history and physical, reviewed labs and image studies, discussed the case with the resident Dr. Olea and agree with the findings and care plan. Resident Activity Tracking Resident Involvement: Resident Care Provided Care Provided: Adult Hospital Medicine
== END 2020-01-05 13:21 | disposition home or self-care (01) | DRG 394 ==
LOC: ED 21:54 → OR 23:44 → ED 23:44 → SUATTDRO 23:47 → 2E 23:47 → SUATTDRO 12-28 01:08 → 2W 12-29 14:27